=== PATIENT | female | born 1955 | race Caucasian/White ===

== ENCOUNTER 2016-08-29 12:45 | Emergency (ER) | payer OTHER ==
[~2016-08-29] VITALS: Ht 162.6 cm; Wt 72.6 kg
[2016-08-29] MEDS ORDERED: LEVO88TA3 (13:14)
[2016-08-29] MEDS ORDERED: GABA-283 (13:14)
[2016-08-29] MEDS ORDERED: PROZ40CA PO (13:14)
[2016-08-29] MEDS ORDERED: ASPIRIN 81 MG CHEW TABLET PO ONE (15:00)
--- NOTE | 2016-08-29 15:31 | REP ---
PORTABLE CHEST: AP portable view of the chest is performed. There is mild biapical pleural thickening. There is no acute infiltrate. The heart is normal in size. The mediastinal silhouette is unremarkable. IMPRESSION: No acute infiltrate. Signed by Jareth Wilson MD 08/29/2016 04:19 P
[2016-08-29 15:46] LABS: BASO % 0.3 % (0.0-1.0); EOS # 0.1 K/mm3 (0.0-0.50); LARGE UNSTAINED CELL # 0.1 K/mm3 (0.0-0.4); LARGE UNSTAINED CELL % 1.5 % (0.0-4.0); LYMPH # 1.5 K/mm3 (1.5-4.5); LYMPH % 22.8 % (24.0-44.0); MEAN CORPUSCULAR HGB CONC 33.2 g/dl (32.0-36.5); MEAN CORPUSCULAR VOLUME 90.4 fl (80.0-96.0); MONO # 0.3 K/mm3 (0.0-0.8); MONO % 4.7 % (0.0-5.0); NEUTROPHILS # 4.5 K/mm3 (1.8-7.7); NEUTROPHILS % 69.7 % (36.0-66.0); PLATELET COUNT, AUTOMATED 254 k/mm3 (150-450); RED CELL DISTRIBUTION WIDTH 12.2 % (11.5-14.5); WHITE BLOOD COUNT 6.5 K/mm3 (4.0-10.0)
[2016-08-29 16:15] LABS: ALBUMIN/GLOBULIN RATIO 1.21 (1.00-1.93); ALKALINE PHOSPHATASE 78 U/L (45-117); ALT/SGPT 17 U/L (12-78); ANION GAP 7 MEQ/L (8-16); AST/SGOT 13 U/L (15-37); BILIRUBIN,DIRECT 0.1 MG/DL (0.0-0.2); BILIRUBIN,TOTAL 0.5 MG/DL (0.2-1.0); BLOOD UREA NITROGEN 7 MG/DL (7-18); CALCIUM LEVEL 9.2 MG/DL (8.5-10.1); CARBON DIOXIDE LEVEL 31 MEQ/L (21-32); CHLORIDE LEVEL 104 MEQ/L (98-107); CREATININE FOR GFR 0.71 MG/DL (0.55-1.02); GLOMERULAR FILTRATION RATE > 60.0 (>51); GLUCOSE, FASTING 90 MG/DL (70-105); POTASSIUM SERUM 4.1 MEQ/L (3.5-5.1); SODIUM LEVEL 142 MEQ/L (136-145); TOTAL PROTEIN 7.3 GM/DL (6.4-8.2)
[2016-08-29] MEDS ORDERED: ISOVUE-370 76% 100ML VIAL (Q9967) As Ordered ONE (16:18)
--- NOTE | 2016-08-29 18:11 | REP ---
CT pulmonary angiogram: With IV contrast. History: Chest pain and shortness of breath. Comparison studies: Today's portable chest x-ray. Contrast dose: Comparison low-dose screening lung cancer CT study is from 05/05/2016. 75 cc's of Isovue-[address] technique: Helical scanning is acquired and overlapping 1.5 mm and contiguous 3 mm axial images are reformatted. In addition, a 3-D work station is deployed to generate thick slab maximum intensity projection images in sagittal and coronal imaging projections. CT pulmonary angiographic findings: There is good opacification of the pulmonary arterial tree and there is no CT evidence of pulmonary embolism. Maximal intensity projection images show no vessel cutoff or filling defect to suggest a pulmonary thrombus. The thoracic aorta enhances homogeneously. No aortic aneurysm or dissection is appreciated. There is a granulomatous calcified nodule on the overlying the dome of the right hemidiaphragm at the right lower lobe medially. This appears to be in the pleural space and indeed appears to have moved its position relative to the 05/05/[address] study when it was more medially situated behind the inferior vena cava. This is felt to be compatible with a pleural space concretion which has migrated somewhat, aka thoracolithiasis. Lung mosley are otherwise clear. No pleural or pericardial effusion is seen. No hilar or mediastinal mass or adenopathy is observed. No adrenal lesion is seen. There is a small accessory splenule. The visualized upper abdominal structures are otherwise unremarkable. Impression: No CT evidence of pulmonary embolus. Granulomatous calcification in the right pleural space just above the dome of the diaphragm. Signed by Eladio Campos MD 08/29/2016 07:46 P
[2016-08-29 18:55] VITALS: BP 129/75
--- NOTE | 2016-08-29 20:54 | ECGEPIP ---
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
--- NOTE | 2016-08-30 06:07 | ECGEPIP ---
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
== END 2016-08-29 18:58 | disposition home or self-care (01) ==
LOC: M ED 15:15
DX: R07.9 Chest pain, unspecified (principal); R93.1 Abnormal findings on diagnostic imaging of heart and coronary circulation; E03.9 Hypothyroidism, unspecified; F41.9 Anxiety disorder, unspecified; Z87.891 Personal history of nicotine dependence; Z79.899 Other long term (current) drug therapy; Z88.5 Allergy status to narcotic agent
CPT/HCPCS: 36415; 71010; 71275; 80048; 80076; 82550; 82553; 83690; 83880; 85025; 93005; 93041; 94760; 99285; Q9967

== ENCOUNTER → 2016-10-10 | Outpatient (REF) | payer OTHER ==
[~2016-10-10] MED LIST: GABA-283; LEVO88TA3; PROZ40CA PO
[2016-10-10 15:38] LABS: BASO % 0.5 % (0.0-1.0); EOS # 0.1 K/mm3 (0.0-0.50); EOS % 2.9 % (0.0-3.0); LARGE UNSTAINED CELL # 0.1 K/mm3 (0.0-0.4); LARGE UNSTAINED CELL % 1.9 % (0.0-4.0); LYMPH # 1.8 K/mm3 (1.5-4.5); MEAN CORPUSCULAR HEMOGLOBIN 28.5 pg (27.0-33.0); MEAN CORPUSCULAR HGB CONC 31.2 g/dl (32.0-36.5); MEAN CORPUSCULAR VOLUME 91.5 fl (80.0-96.0); MONO # 0.3 K/mm3 (0.0-0.8); MONO % 6.8 % (0.0-5.0); NEUTROPHILS # 2.4 K/mm3 (1.8-7.7); PLATELET COUNT, AUTOMATED 212 k/mm3 (150-450); RED CELL DISTRIBUTION WIDTH 12.2 % (11.5-14.5); WHITE BLOOD COUNT 4.8 K/mm3 (4.0-10.0)
[2016-10-10 16:09] LABS: ALBUMIN 3.7 GM/DL (3.2-5.2); ALBUMIN/GLOBULIN RATIO 1.16 (1.00-1.93); ALKALINE PHOSPHATASE 76 U/L (45-117); ALT/SGPT 16 U/L (12-78); ANION GAP 6 MEQ/L (8-16); AST/SGOT 9 U/L (15-37); BILIRUBIN,TOTAL 0.3 MG/DL (0.2-1.0); BLOOD UREA NITROGEN 5 MG/DL (7-18); CALCIUM LEVEL 8.8 MG/DL (8.5-10.1); CARBON DIOXIDE LEVEL 32 MEQ/L (21-32); CHLORIDE LEVEL 103 MEQ/L (98-107); CHOLESTEROL LEVEL 262 MG/DL (<200); CREATININE FOR GFR 0.69 MG/DL (0.55-1.02); FREE T4 1.39 NG/DL (0.76-1.46); GLOMERULAR FILTRATION RATE > 60.0 (>51); GLUCOSE, FASTING 100 MG/DL (70-105); POTASSIUM SERUM 4.5 MEQ/L (3.5-5.1); SODIUM LEVEL 141 MEQ/L (136-145); TOTAL PROTEIN 6.9 GM/DL (6.4-8.2); TRIGLYCERIDES LEVEL 266 MG/DL (<150)
== END ==
LOC: M SFHCPLAZ 14:45
PROVIDERS: ATTEND Nurse Practitioner Family
DX: F41.8 Other specified anxiety disorders (principal); E78.5 Hyperlipidemia, unspecified; E03.9 Hypothyroidism, unspecified

== ENCOUNTER → 2016-12-05 | Outpatient (REF) | payer OTHER ==
[2016-12-05 20:27] LABS: FREE T4 1.14 NG/DL (0.76-1.46)
== END ==
LOC: M SFHCCAPE 09:42
PROVIDERS: ATTEND Nurse Practitioner Family
DX: E03.9 Hypothyroidism, unspecified (principal)

== ENCOUNTER → 2016-12-19 | Outpatient (CLI) | payer MEDICAID, OTHER ==
--- NOTE | 2016-12-19 13:38 | REP ---
Clinical: Trauma. Technique: Frontal view of the chest with multiple views of the left hemithorax. Findings: Frontal view of the chest demonstrates no acute cardiopulmonary process. Multiple views of the left hemithorax demonstrates no obvious acute rib fracture or pathology. Impression: Normal left rib series Signed by Derick Morejon MD 12/19/2016 01:29 P
== END ==
LOC: M WUC 12:43
PROVIDERS: ATTEND Nurse Practitioner Family
DX: R07.81 Pleurodynia (principal)

== ENCOUNTER → 2017-05-10 | Outpatient (REF) | payer OTHER ==
[2017-05-10 18:03] LABS: ALBUMIN 3.7 GM/DL (3.2-5.2); ALKALINE PHOSPHATASE 82 U/L (45-117); ALT/SGPT 14 U/L (12-78); ANION GAP 3 MEQ/L (8-16); AST/SGOT 10 U/L (7-37); BILIRUBIN,TOTAL 0.4 MG/DL (0.2-1.0); BLOOD UREA NITROGEN 4 MG/DL (7-18); CALCIUM LEVEL 8.8 MG/DL (8.5-10.1); CARBON DIOXIDE LEVEL 33 MEQ/L (21-32); CHLORIDE LEVEL 103 MEQ/L (98-107); CHOLESTEROL LEVEL 281 MG/DL (<200); FREE T4 1.17 NG/DL (0.76-1.46); GLOMERULAR FILTRATION RATE > 60.0 (>51); GLUCOSE, FASTING 84 MG/DL (70-105); POTASSIUM SERUM 4.1 MEQ/L (3.5-5.1); SODIUM LEVEL 139 MEQ/L (136-145); TOTAL PROTEIN 7.4 GM/DL (6.4-8.2); TRIGLYCERIDES LEVEL 183 MG/DL (<150)
== END ==
LOC: M SFHCCAPE 09:16
PROVIDERS: ATTEND Physician Assistant
DX: E78.5 Hyperlipidemia, unspecified (principal); E03.9 Hypothyroidism, unspecified

== ENCOUNTER → 2017-09-12 | Outpatient (REF) | payer MEDICARE, MEDICAID | LOC: M SFHCCLAY 14:34 | DX: R19.7 Diarrhea, unspecified (principal) ==

== ENCOUNTER → 2017-09-13 | Outpatient (REF) | payer MEDICARE, MEDICAID ==
[2017-09-13 17:12] LABS: ALBUMIN 3.9 GM/DL (3.2-5.2); ALBUMIN/GLOBULIN RATIO 1.03 (1.00-1.93); ALKALINE PHOSPHATASE 83 U/L (45-117); ALT/SGPT 11 U/L (12-78); ANION GAP 5 MEQ/L (8-16); AST/SGOT 15 U/L (7-37); BILIRUBIN,TOTAL 0.4 MG/DL (0.2-1.0); BLOOD UREA NITROGEN 7 MG/DL (7-18); CALCIUM LEVEL 9.1 MG/DL (8.5-10.1); CARBON DIOXIDE LEVEL 31 MEQ/L (21-32); CHLORIDE LEVEL 103 MEQ/L (98-107); CREATININE FOR GFR 0.84 MG/DL (0.55-1.30); GLOMERULAR FILTRATION RATE > 60.0 (>51); GLUCOSE, FASTING 83 MG/DL (70-100); POTASSIUM SERUM 4.4 MEQ/L (3.5-5.1); SODIUM LEVEL 139 MEQ/L (136-145); TOTAL PROTEIN 7.7 GM/DL (6.4-8.2)
[2017-09-13 18:16] LABS: BASO % 0.7 % (0.0-1.0); EOS # 0.1 10^3/uL (0.0-0.50); EOS % 1.7 % (0.0-3.0); HEMATOCRIT 41.5 % (36.0-47.0); HEMOGLOBIN 13.4 g/dl (12.0-16.0); IMMATURE GRANULOCYTE % 0.2 % (0-3.0); LYMPH % 34.2 % (24.0-44.0); MEAN CORPUSCULAR HGB CONC 32.3 g/dl (32.0-36.5); MONO # 0.6 10^3/uL (0.0-0.8); MONO % 9.3 % (0.0-5.0); NEUTROPHILS # 3.2 10^3/uL (1.8-7.7); NEUTROPHILS % 53.9 % (36.0-66.0); PLATELET COUNT, AUTOMATED 368 10^3/uL (150-450); RED BLOOD COUNT 4.46 10^6/uL (4.00-5.40); RED CELL DISTRIBUTION WIDTH 12.9 % (11.5-14.5); WHITE BLOOD COUNT 5.9 10^3/uL (4.0-10.0)
[2017-09-16 00:06] LABS: H PYLORI STOOL ANTIGEN Negative (Negative)
== END ==
LOC: M SFHCCLAY 10:29
DX: R19.7 Diarrhea, unspecified (principal)
CPT/HCPCS: 80053

== ENCOUNTER → 2017-09-26 | Outpatient (REF) | payer MEDICARE, MEDICAID | LOC: M SFHCCLAY 16:23 | DX: A04.72 Enterocolitis due to Clostridium difficile, not specified as recurrent (principal) | CPT/HCPCS: 87493 ==

== ENCOUNTER → 2018-02-27 | Outpatient (CLI) | payer MEDICARE, MEDICAID | LOC: M CLY 14:45 | DX: M94.0 Chondrocostal junction syndrome [Tietze] (principal); R30.0 Dysuria | CPT/HCPCS: 71100; 87086 ==

== ENCOUNTER → 2018-02-27 | Outpatient (REF) | payer MEDICARE, MEDICAID | LOC: M SFHCCLAY 13:50 | DX: R30.0 Dysuria (principal) | CPT/HCPCS: 87086 ==

== ENCOUNTER → 2018-07-25 | Outpatient (REF) | payer MEDICARE, MEDICAID ==
[~2018-07-25] MED LIST changes: -GABA-283; +GABA-845
[2018-07-25 17:33] LABS: BASO # 0.1 10^3/uL (0.0-0.2); BASO % 1.1 % (0.0-1.0); EOS # 0.2 10^3/uL (0.0-0.50); EOS % 3.5 % (0.0-3.0); HEMATOCRIT 39.2 % (36.0-47.0); HEMOGLOBIN 12.5 g/dl (12.0-15.5); LYMPH # 2.3 10^3/uL (1.5-4.5); LYMPH % 40.5 % (24.0-44.0); MEAN CORPUSCULAR HEMOGLOBIN 29.8 pg (27.0-33.0); MEAN CORPUSCULAR HGB CONC 31.9 g/dl (32.0-36.5); MEAN CORPUSCULAR VOLUME 93.6 fl (80.0-96.0); MONO # 0.5 10^3/uL (0.0-0.8); MONO % 8.1 % (0.0-5.0); NEUTROPHILS # 2.7 10^3/uL (1.8-7.7); NEUTROPHILS % 46.4 % (36.0-66.0); PLATELET COUNT, AUTOMATED 310 10^3/uL (150-450); RED BLOOD COUNT 4.19 10^6/uL (4.00-5.40); WHITE BLOOD COUNT 5.7 10^3/uL (4.0-10.0)
[2018-07-25 17:38] LABS: ALBUMIN 3.5 GM/DL (3.2-5.2); ALT/SGPT 27 U/L (12-78); BILIRUBIN,TOTAL 0.3 MG/DL (0.2-1.0); BLOOD UREA NITROGEN 8 MG/DL (7-18); CALCIUM LEVEL 8.4 MG/DL (8.8-10.2); CARBON DIOXIDE LEVEL 32 MEQ/L (21-32); CHLORIDE LEVEL 102 MEQ/L (98-107); CHOLESTEROL LEVEL 316 MG/DL (<200); CHOLESTEROL RISK RATIO 9.575 (<5); CREATININE FOR GFR 0.84 MG/DL (0.55-1.30); GLOMERULAR FILTRATION RATE > 60.0 (>45); GLUCOSE, FASTING 83 MG/DL (70-100); HDL CHOLESTEROL 33 MG/DL (>40); NON-HDL-C 283 MG/DL; POTASSIUM SERUM 4.3 MEQ/L (3.5-5.1); SODIUM LEVEL 139 MEQ/L (136-145); TOTAL PROTEIN 7.1 GM/DL (6.4-8.2); TRIGLYCERIDES LEVEL 449 MG/DL (<150)
[2018-07-25 17:44] LABS: TOTAL 25(OH) VITAMIN D 14.2 NG/ML (30.0-100.0)
== END ==
LOC: M SFHCCAPE 09:47
PROVIDERS: ATTEND Physician Assistant
DX: E03.9 Hypothyroidism, unspecified (principal); E78.5 Hyperlipidemia, unspecified; Z78.0 Asymptomatic menopausal state

== ENCOUNTER → 2018-07-30 | Outpatient (REF) | payer MEDICARE, MEDICAID ==
[2018-08-02 00:06] LABS: HPV HYBRID CAPTURE II Negative (Negative)
== END ==
LOC: M SFHCCAPE 11:55
PROVIDERS: ATTEND Physician Assistant
DX: Z01.419 Encounter for gynecological examination (general) (routine) without abnormal findings (principal); R87.615 Unsatisfactory cytologic smear of cervix
CPT/HCPCS: 87624; G0123

== ENCOUNTER → 2018-09-12 | Outpatient (CLI) | payer MEDICAID, MEDICARE ==
--- NOTE | 2018-09-12 16:49 | REP ---
Low-dose lung cancer screening CT study of the chest: History: Personal history of nicotine dependence. Comparison chest CT studies are from August 29, 2016 and May 05, 2016. 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 This is unchanged. There is a small right tracheal diverticulum again noted at the thoracic inlet unchanged from prior studies. No other tracheobronchial abnormality is seen. There is no evidence of pleural or pericardial effusion. No significant lung nodule is appreciated. Previously noted granulomatous calcification at the right base is no longer apparent. Impression: Lung RADS category II benign findings. Continue annual screening. Electronically Signed by Eladio Campos MD 09/12/2018 05:28 P
== END ==
LOC: M RAD 10:53
PROVIDERS: ATTEND Physician Assistant
DX: Z12.2 Encounter for screening for malignant neoplasm of respiratory organs (principal); Z87.891 Personal history of nicotine dependence

== ENCOUNTER → 2018-10-30 | Outpatient (REF) | payer MEDICARE, MEDICAID ==
[2018-10-30 17:16] LABS: ALT/SGPT 13 U/L (12-78); BILIRUBIN,TOTAL 0.5 MG/DL (0.2-1.0); BLOOD UREA NITROGEN 8 MG/DL (7-18); CALCIUM LEVEL 9.2 MG/DL (8.8-10.2); CARBON DIOXIDE LEVEL 30 MEQ/L (21-32); CHLORIDE LEVEL 105 MEQ/L (98-107); CHOLESTEROL LEVEL 336 MG/DL (<200); CHOLESTEROL RISK RATIO 8.615 (<5); CREATININE FOR GFR 0.85 MG/DL (0.55-1.30); GLOMERULAR FILTRATION RATE > 60.0 (>45); GLUCOSE, FASTING 87 MG/DL (70-100); HDL CHOLESTEROL 39 MG/DL (>40); LDL CHOLESTEROL 258 MG/DL (<100); NON-HDL-C 297 MG/DL; POTASSIUM SERUM 4.2 MEQ/L (3.5-5.1); SODIUM LEVEL 140 MEQ/L (136-145); TOTAL 25(OH) VITAMIN D 58.4 NG/ML (30.0-100.0); TOTAL PROTEIN 7.2 GM/DL (6.4-8.2); TRIGLYCERIDES LEVEL 197 MG/DL (<150)
== END ==
LOC: M SFHCCAPE 08:40
PROVIDERS: ATTEND Physician Assistant
DX: E78.5 Hyperlipidemia, unspecified (principal); E55.9 Vitamin D deficiency, unspecified

== ENCOUNTER → 2019-08-26 | Outpatient (REF) | payer MEDICARE, MEDICAID ==
[2019-08-26 18:29] LABS: BASO % 0.8 % (0.0-1.0); EOS # 0.1 10^3/uL (0.0-0.5); EOS % 1.9 % (0.0-3.0); HEMATOCRIT 37.9 % (36.0-47.0); HEMOGLOBIN 12.1 g/dl (12.0-15.5); LYMPH # 1.8 10^3/uL (1.5-5.0); LYMPH % 34.6 % (24.0-44.0); MEAN CORPUSCULAR HEMOGLOBIN 29.7 pg (27.0-33.0); MEAN CORPUSCULAR HGB CONC 31.9 g/dl (32.0-36.5); MEAN CORPUSCULAR VOLUME 92.9 fl (80.0-96.0); MONO # 0.4 10^3/uL (0.0-0.8); MONO % 7.4 % (0.0-5.0); NEUTROPHILS # 2.9 10^3/uL (1.5-8.5); NEUTROPHILS % 55.3 % (36.0-66.0); PLATELET COUNT, AUTOMATED 370 10^3/uL (150-450); RED BLOOD COUNT 4.08 10^6/uL (4.00-5.40); WHITE BLOOD COUNT 5.2 10^3/uL (4.0-10.0)
[2019-08-26 18:33] LABS: ALBUMIN 3.7 GM/DL (3.2-5.2); ALT/SGPT 16 U/L (12-78); BILIRUBIN,TOTAL 0.6 MG/DL (0.2-1.0); BLOOD UREA NITROGEN 8 MG/DL (7-18); CALCIUM LEVEL 9.2 MG/DL (8.8-10.2); CARBON DIOXIDE LEVEL 27 MEQ/L (21-32); CHLORIDE LEVEL 107 MEQ/L (98-107); CHOLESTEROL LEVEL 165 MG/DL (<200); CREATININE FOR GFR 0.86 MG/DL (0.55-1.30); GLOMERULAR FILTRATION RATE > 60.0 (>45); GLUCOSE, FASTING 89 MG/DL (70-100); HDL CHOLESTEROL 39 MG/DL (>40); LDL CHOLESTEROL 96 MG/DL (<100); NON-HDL-C 126 MG/DL; POTASSIUM SERUM 4.3 MEQ/L (3.5-5.1); SODIUM LEVEL 140 MEQ/L (136-145); TOTAL 25(OH) VITAMIN D 113.8 NG/ML (30.0-100.0); TOTAL PROTEIN 6.9 GM/DL (6.4-8.2); TRIGLYCERIDES LEVEL 152 MG/DL (<150)
== END ==
LOC: M SFHCCAPE 10:38
PROVIDERS: ATTEND Physician Assistant
DX: E78.5 Hyperlipidemia, unspecified (principal); E03.9 Hypothyroidism, unspecified; E55.9 Vitamin D deficiency, unspecified

== ENCOUNTER → 2020-06-04 | Outpatient (REF) | payer MEDICARE, MEDICAID | LOC: M SFHCCLAY 11:14 | PROVIDERS: ATTEND Physician Assistant | DX: L53.9 Erythematous condition, unspecified (principal) ==

== ENCOUNTER → 2020-06-04 | Outpatient (REF) | payer MEDICARE, MEDICAID | LOC: M SFHCCLAY 16:02 | PROVIDERS: ATTEND Physician Assistant | DX: L53.9 Erythematous condition, unspecified (principal) ==

== ENCOUNTER → 2020-06-11 | Outpatient (REF) | payer MEDICARE, MEDICAID ==
[2020-06-11 17:58] LABS: ALBUMIN 3.8 GM/DL (3.2-5.2); ALT/SGPT 15 U/L (12-78); BILIRUBIN,TOTAL 0.3 MG/DL (0.2-1.0); BLOOD UREA NITROGEN 5 MG/DL (7-18); CALCIUM LEVEL 9.5 MG/DL (8.8-10.2); CARBON DIOXIDE LEVEL 34 MEQ/L (21-32); CHLORIDE LEVEL 104 MEQ/L (98-107); CHOLESTEROL LEVEL 179 MG/DL (<200); CHOLESTEROL RISK RATIO 4.837 (<5); CREATININE FOR GFR 0.93 MG/DL (0.55-1.30); GLOMERULAR FILTRATION RATE > 60.0 (>45); GLUCOSE, FASTING 91 MG/DL (70-100); HDL CHOLESTEROL 37 MG/DL (>40); LDL CHOLESTEROL 96 MG/DL (<100); NON-HDL-C 142 MG/DL; POTASSIUM SERUM 4.7 MEQ/L (3.5-5.1); SODIUM LEVEL 139 MEQ/L (136-145); TOTAL PROTEIN 7.2 GM/DL (6.4-8.2); TRIGLYCERIDES LEVEL 231 MG/DL (<150)
[2020-06-11 18:01] LABS: TOTAL 25(OH) VITAMIN D 35.1 NG/ML (30.0-100.0)
[2020-06-11 18:12] LABS: BASO % 0.8 % (0.0-1.0); EOS # 0.1 10^3/uL (0.0-0.5); EOS % 1.9 % (0.0-3.0); HEMATOCRIT 41.7 % (36.0-47.0); HEMOGLOBIN 13.3 g/dl (12.0-15.5); LYMPH # 1.6 10^3/uL (1.5-5.0); LYMPH % 33.2 % (24.0-44.0); MEAN CORPUSCULAR HEMOGLOBIN 30.1 pg (27.0-33.0); MEAN CORPUSCULAR HGB CONC 31.9 g/dl (32.0-36.5); MEAN CORPUSCULAR VOLUME 94.3 fl (80.0-96.0); MONO # 0.4 10^3/uL (0.0-0.8); MONO % 7.6 % (0.0-5.0); NEUTROPHILS # 2.7 10^3/uL (1.5-8.5); NEUTROPHILS % 56.3 % (36.0-66.0); PLATELET COUNT, AUTOMATED 262 10^3/uL (150-450); RED BLOOD COUNT 4.42 10^6/uL (4.00-5.40); WHITE BLOOD COUNT 4.8 10^3/uL (4.0-10.0)
== END ==
LOC: M SFHCCLAY 10:51
PROVIDERS: ATTEND Physician Assistant
DX: Z12.4 Encounter for screening for malignant neoplasm of cervix (principal); E03.9 Hypothyroidism, unspecified; E78.5 Hyperlipidemia, unspecified; E55.9 Vitamin D deficiency, unspecified; R87.615 Unsatisfactory cytologic smear of cervix
CPT/HCPCS: 80053; 80061; 82306; 84439; 84443; 85025; 87624; G0123

== ENCOUNTER → 2020-09-28 | Outpatient (REF) | payer MEDICARE, MEDICAID ==
[2020-09-28 17:08] LABS: ALBUMIN 3.5 GM/DL (3.2-5.2); ALT/SGPT 18 U/L (12-78); BILIRUBIN,TOTAL 0.2 MG/DL (0.2-1.0); BLOOD UREA NITROGEN 5 MG/DL (7-18); CALCIUM LEVEL 8.8 MG/DL (8.8-10.2); CARBON DIOXIDE LEVEL 31 MEQ/L (21-32); CHLORIDE LEVEL 103 MEQ/L (98-107); CHOLESTEROL LEVEL 174 MG/DL (<200); CHOLESTEROL RISK RATIO 4.833 (<5); CREATININE FOR GFR 0.81 MG/DL (0.55-1.30); GLOMERULAR FILTRATION RATE > 60.0 (>45); GLUCOSE, FASTING 97 MG/DL (70-100); HDL CHOLESTEROL 36 MG/DL (>40); LDL CHOLESTEROL 96 MG/DL (<100); NON-HDL-C 138 MG/DL; POTASSIUM SERUM 4.4 MEQ/L (3.5-5.1); SODIUM LEVEL 139 MEQ/L (136-145); TOTAL 25(OH) VITAMIN D 30.2 NG/ML (30.0-100.0); TOTAL PROTEIN 6.8 GM/DL (6.4-8.2); TRIGLYCERIDES LEVEL 208 MG/DL (<150)
== END ==
LOC: M SFHCCAPE 08:59
PROVIDERS: ATTEND Physician Assistant
DX: E78.5 Hyperlipidemia, unspecified (principal); E03.9 Hypothyroidism, unspecified; E55.9 Vitamin D deficiency, unspecified

== ENCOUNTER → 2020-11-11 | Outpatient (CLI) | payer MEDICAID, MEDICARE ==
[~2020-11-11] MED LIST changes: +GABA-283; -GABA-845
--- NOTE | 2020-11-11 16:01 | REP ---
INDICATION: ENCNTR SCREEN FOR MALIGNANT NEOPLASM OF RESPIRATORY ORGANS. COMPARISON: 09/12/2018. TECHNIQUE: Low dose screening CT chest performed without the use of intravenous contrast. FINDINGS: Lungs: There is stable biapical pleuroparenchymal scarring. There are new mild scattered patchy ground-glass opacities throughout the right upper lobe. Similar opacities are also seen to a much lesser extent in the right middle and lower lobes and left upper lobe. No focal nodular opacity is seen bilaterally. Heart: Not enlarged. Thoracic aorta: No aneurysm. Visualized osseous structures: Unremarkable. IMPRESSION: New mild scattered patchy ground-glass opacities throughout the right upper lobe and to a lesser extent right middle, right lower and left upper lobes. I suspect these represent scattered areas of inflammatory infiltrate. Recommend follow-up chest CT in 3 months. <Electronically signed by Jareth Wilson > 11/11/20 1943
== END ==
LOC: M RAD 13:28
PROVIDERS: ATTEND Physician Assistant
DX: R91.8 Other nonspecific abnormal finding of lung field (principal); Z87.891 Personal history of nicotine dependence; Z12.2 Encounter for screening for malignant neoplasm of respiratory organs

== ENCOUNTER → 2021-02-15 | Outpatient (CLI) | payer MEDICARE ==
--- NOTE | 2021-02-15 13:27 | REP ---
INDICATION: ABNORMAL FINDING OF LUNG FIELD COMPARISON: 11/11/2020 TECHNIQUE: Axial noncontrast images from the thoracic inlet to the upper abdomen with coronal and sagittal reformations. This CT examination was performed using the following dose reduction techniques: Automated exposure control, adjustment of mA and/or kv according to the patient's size, and use of iterative reconstruction technique. FINDINGS: Lung mosley demonstrate stable biapical scarring and the previously noted scattered ground-glass opacities have resolved. No acute consolidation. No effusion or pneumothorax. No suspicious nodule or mass. Tracheobronchial tree is patent. Limited noncontrast evaluation nonspecific lymph nodes and atherosclerotic changes as well as small hiatal hernia. Of the mediastinum demonstrates stable no cardiomegaly or pericardial effusion. Musculoskeletal structures are intact. IMPRESSION: 1. Lung mosley are clear and previously noted ground-glass infiltrates have resolved. No acute mediastinal or pleuroparenchymal process. <Electronically signed by Derick Morejon > 02/15/21 [id number]
== END ==
LOC: M PLAIMG 12:36
PROVIDERS: ATTEND Nurse Practitioner Adult Health
DX: J98.4 Other disorders of lung (principal); K44.9 Diaphragmatic hernia without obstruction or gangrene

== ENCOUNTER → 2021-04-14 | Outpatient (CLI) | payer MEDICARE ==
[~2021-04-14] MED LIST changes: +ATOR1TAB19 PO
== END ==
LOC: M LABSMTC 10:07
PROVIDERS: ATTEND Anesthesiology
DX: Z01.812 Encounter for preprocedural laboratory examination (principal); Z20.822 Contact with and (suspected) exposure to COVID-19

== ENCOUNTER 2021-04-19 10:02 | Day surgery (SDC) | payer MEDICARE ==
[~2021-04-19] VITALS: Ht 165.1 cm; Wt 59.9 kg
[~2021-04-19 10:02] MED LIST changes: +NS 1,000 ML IV ONE
--- OUTSIDE RECORDS SUMMARY | 2021-04-19 10:06 | CCD | Continuity of Care Document ---
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 Name Role Phone Blanca Torres P.Lavell-Jania AUTM [phone] AUTM Unavailable Problems Description No Information Available Social History Type Date Description Comments Sex Unknown ETOH Use Denies alcohol use Tobacco Use Start: Unknown Patient is a current smoker, smo kes every day 06/29- pd Smoking Status Reviewed: 02/23/21 Patient is a current smoker, smokes every day 4-2ppd Allergies, Adverse Reactions, Alerts Active Allergies Criticality Reaction | Severity Comments Date Procaine Unable to assess criticality Hives 11/11/2020 Lidocaine Unable to assess criticality Hives, vomiting 11/11/2020 Morphine Unable to assess criticality Hives 11/11/2020 Medications Active Medications SIG Qnty Indications Ordering Provide r Date Levothyroxine Sodium 88mcg Capsule s 1cap po qd Unknown Atorvastatin Calcium 10mg Tablets 1tab po qd Unknown Zyrtec Allergy 10mg Tablets 1tab po qd Unknown Gabapentin 300mg Capsules 1 tab by mouth every day Unknown Fluoxetine HCL 20mg Tablets Take 2 Tablets By Mouth Once Daily Blanca Torres P.Lavell History Medications Sutab [id number] Tablets follow the instruction provided. drink plenty of clear liquids. (if not covered by insurance, give clenpiq/ call gi clinic) 24tabs Z12.11 Woody Dacosta M.D. 11/11/2020 - 11/15/2020 Miralax 17GM/Scoop Powder 17 gram per dose, mixed with 8 oz water/fluid and to be taken 1 -2 times a day for 5 days ( prior to colonoscopy procedure) 238gm K58.2 Woody Martin ala, M.D. 11/11/2020 - 11/15/2020 Immunizations Description No Information Available Vital Signs Date Vital Result Comment 02/23/2021 12:17pm BP Systolic 128 mmHg BP Diastolic 82 mmHg Heart Rate 73 /min O2 % BldC Oximetry 97 % Height 65 inches 5'5" Weight 135.00 lb BMI (Body Mass Index) 22.5 kg/m2 [place] Body Weight 125 lb Weight 61.236 kg BSA (Body Surface Area) 1.67 m2 12/16/2020 10:09am BP Systolic 120 mmHg BP Diastolic 82 mmHg Heart Rate 72 /min O2 % BldC Oximetry 97 % Height 65 inches 5'5" Weight 131.00 lb BMI (Body Mass Index) 21.8 kg/m2 [place] Body Weight 125 lb Weight 59.422 kg BSA (Body Surface Area) 1.65 m2 Results Test Acquired Date Facility Test Result H/L Range Note FVL/[place] 12/16/2020 [facility] SEE IMAGE FVC-Pred 3.34 L FVC-Pre 2.92 L FVC-%Pred-Pre 87 L FVC-LLN 2.63 L Fev1-Pred 2.57 L Fev1-Pre 2.14 L Fev1-%Pred-Pre 83 L Fev1-LLN 1.96 L Fev6-Pred 3.22 L Fev6-Pre 2.80 L Fev6-%Pred-Pre 86 L Fev6-LLN 2.52 L Teu6cqu-Lrwy 77 % Tog2jeh-Ckl 73 % Cyi6ekb-%Pred-Pre 94 % Jim2bwd-MBQ 68 % Qqp0jyl-Anqo 96 % Net7bsk-Lfj 96 % Vcn9gls-%Pred-Pre 99 % FEFMax-Pred 6.28 L/E/sec FEFMax-Pre 5.40 L/E/sec FEFMax-%Pred-Pre 86 L/E/sec FEFMax-LLN 4.51 L/E/sec Zfq5837-Jqzn 2.28 L/E/sec Tyt9574-Vwa 1.48 L/E/sec Cxd0437-%Pred-Pre 64 L/E/sec Lxn8729-ODW 1.00 L/E/sec ExpTime-Pre 8.54 sec Ceu4noe8-Bwwu 80 % Nvn4wnk8-Fvv 77 % Qyd6utq2-%Pred-Pre 95 % Ghy9ufw1-HUT 71 % Procedures Date Code Description Status 12/16/2020 59698 Office/Outpatient New Moderate M DM 45-59 Minutes Completed 12/16/2020 74548 Spirometry Completed 11/11/2020 15405 Office/Outpatient Established Lo w MDM 20-29 Min Completed Medical Devices Description No Information Available Encounters Type Date Location Provider Dx Diagnosis Office Visit 12/16/2020 10:00a [facility] Pulmonary/Thoracic DONOVAN Moss R91.8 Other nonspecific abnormal finding of lynette ng field F17.218 Nicotine dependence, cigaret yaima, w oth disorders Office Visit 11/11/2020 10:00a [facility] Gastroenterology [facility] maty Dacosta M.D. K58.2 Mixed irritable bowel syndro id Z12.11 Encounter for screening for malignant neoplasm of colon Assessments Date Code Description Provider 02/23/2021 R91.8 Other nonspecific abnormal findi ng of lung field Ivory Zaragoza, DONOVAN 02/23/2021 Z87.891 Personal history of nicotine dep endence DONOVAN Blackwell 12/16/2020 R91.8 Other nonspecific abnormal findi ng of lung field Ivory Zaragoza, DONOVAN 12/16/2020 F17.218 Nicotine dependence, cigarettes, with other nicotine-induced disorders DONOVAN Blackwell 11/11/2020 K58.2 Mixed irritable bowel syndrome C suzanne Dacosta M.D. 11/11/2020 Z12.11 Encounter for screening for toby gnant neoplasm of colon Woody Dacosta M.D. Plan of Treatment Future Appointment(s):* 08/30/2021 11:30 am - DONOVAN Blackwell at [facility] Pulmonary/Thoracic * 04/19/2021 2:00 am - Woody Dacosta M.D. at [facility] Gastroenterology Practice 02/23/2021 - DONOVAN Blackwell* R91.8 Other nonspecific abnormal finding of lung field * Z87.891 Personal history of nicotine dependence * * New Xrays:* CT Chest W/O Contrast, Ordered: 02/23/21 * Follow up:* Return in [address] with me/doctor Functional Status Description No Information Available Mental Status Description No Information Available Referrals Refer to Reason for Referral Status Appt Date Radiology/Procedure 94245 Scheduled 02/15/2021 Ivory Zaragoza A.N.P. ABNORMAL LDCT Closed 12/16/2020 [facility] Pulmonary [address] [place], [place] [address] [phone] Kevin Beebe M.D. DIARRHEA CONSTIPATION, RLQ PAIN, COLO SCREEN ING Created [facility], Gastroenterology [address], [address] [place] [address] [phone]
--- OUTSIDE RECORDS SUMMARY | 2021-04-19 10:06 | CCD | Continuity of Care Document ---
Author Author Diane ZARAGOZA [facility] Organization Unknown Address [address] [place] [address] Phone [phone] Care Team Providers Care Medical Writer Name Role Phone Blanca Torres P.Lavell-Jania AUTM [phone] AUTM Unavailable Problems Description No Information Available [...] Daily Blanca Torres P.Lavell History Medications Sutab [phone] Tablets follow the instruction provided. drink plenty [...] lb BMI (Body Mass Index) 22.5 kg/m2 [place] Body Weight 125 lb Weight 61.236 kg BSA (Body Surface Area) 1.67 m2 12/16/2020 10:09am BP Systolic 120 mmHg BP Diastolic 82 mmHg Heart Rate 72 /min O2 % BldC Oximetry 97 % Height 65 inches 5'5" Weight 131.00 lb BMI (Body Mass Index) 21.8 kg/m2 [place] Body Weight 125 lb Weight 59.422 kg BSA (Body Surface Area) 1.65 m2 Results Test Acquired Date Facility Test Result H/L Range Note FVL/[place] 12/16/2020 [facility] SEE IMAGE FVC-Pred 3.34 L FVC-Pre 2.92 L FVC-%Pred-Pre 87 L FVC-LLN 2.63 L Fev1-Pred 2.57 L Fev1-Pre 2.14 L Fev1-%Pred-Pre 83 L Fev1-LLN 1.96 L Fev6-Pred 3.22 L Fev6-Pre 2.80 L Fev6-%Pred-Pre 86 L Fev6-LLN 2.52 L Xit4fau-Uvuw 77 % Vxu1czl-Epb 73 % Jwc2xlf-%Pred-Pre 94 % Tps7vki-KLY 68 % Zpg2xlt-Eyjm 96 % Lle0utu-Vwu 96 % Yxd0zdh-%Pred-Pre 99 % FEFMax-Pred 6.28 L/E/sec FEFMax-Pre 5.40 L/E/sec FEFMax-%Pred-Pre 86 L/E/sec FEFMax-LLN 4.51 L/E/sec Pxv1012-Zham 2.28 L/E/sec Dbl9802-Drd 1.48 L/E/sec Rli4527-%Pred-Pre 64 L/E/sec Sxh3568-WBD 1.00 L/E/sec ExpTime-Pre 8.54 sec Zfj0voa7-Koll 80 % Wdi4lzi0-Ccg 77 % Bzd5des0-%Pred-Pre 95 % Hpv3msc4-TNK 71 % Procedures Date Code Description Status 12/16/2020 83834 Office/Outpatient New Moderate M DM 45-59 Minutes Completed 12/16/2020 38419 Spirometry Completed 11/11/2020 44173 Office/Outpatient Established Lo w MDM 20-29 Min Completed Medical Devices Description No Information Available Encounters Type Date Location Provider Dx Diagnosis Office Visit 12/16/2020 10:00a [facility] Pulmonary/Thoracic DONOVAN Moss R91.8 Other nonspecific abnormal finding of lynette ng field F17.218 Nicotine dependence, cigaret yaima, w oth disorders Office Visit 11/11/2020 10:00a [facility] Gastroenterology [facility] maty Dacosta M.D. K58.2 Mixed irritable bowel syndro ar Z12.11 Encounter for screening for malignant neoplasm [...] K58.2 Mixed irritable bowel syndrome C suzanne Dacsota M.D. 11/11/2020 Z12.11 Encounter for screening for toby gnant neoplasm of colon Woody Dacosta M.D. Plan of Treatment Future Appointment(s):* 08/30/2021 11:30 am - DONOVAN Blackwell at [facility] Pulmonary/Thoracic * 04/19/2021 2:00 am - Woody Dacosta M.D. at [facility] Gastroenterology Practice 02/23/2021 - DONOVAN Blackwell* R91.8 [...] Reason for Referral Status Appt Date Radiology/Procedure 14034 Scheduled 02/15/2021 Ivory Zaragoza A.N.P. ABNORMAL LDCT Closed 12/16/2020 [facility] Pulmonary [address] [place], [place] [address] [phone] Kevin Beebe M.D. DIARRHEA CONSTIPATION, RLQ PAIN, COLO SCREEN ING Created [facility], Gastroenterology [address], [address] [place] [address] [phone]
--- OUTSIDE RECORDS SUMMARY | 2021-04-19 10:06 | CCD ---
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 Name Role Phone Blanca Torres Unavailable PROBLEMS Type Condition ICD9-CM Code [id number] Code Onset Dates Condition S tatus W/U Status Risk SNOMED Code Notes Problem Chronic back pain M54.9 Active confirmed 13 9856012 Problem Hyperlipidemia LDL goal <100 E78.5 Active confirme d 96610079 Problem Hyperlipidemia, unspecified hyperlipidemia type E7 8.5 Active confirmed 98611331 Problem Other chronic pain G89.29 Active confirmed 8 5687373 Problem Abnormal mammogram of right breast R92.8 Activ e confirmed 104683302 Problem Depression with anxiety F41.8 Active confirmed 698899655 Problem Abnormal CT scan, chest R93.89 Active confirmed [id number] Problem Hypothyroidism E03.9 Active confirmed 63355 008 Problem Gastroesophageal reflux disease, esophagitis pre sence not specified K21.9 Active confirmed 434554429 Problem Vitamin D deficiency E55.9 Active confirmed 75663906 Problem Cigarette nicotine dependence without complication F17.210 Active confirmed 48512566 Problem Hypothyroidism (acquired) E03.9 Active confirmed 219658800 ALLERGIES Allergen (clinical drug ingredient) Drug/Non Drug Allergy do cumented on EMR Reaction Allergy Type Onset Date Status morphine Morphine Sulfate([facility] Code:[address]-14) Hives Drug A llergy Active Codeine Phosphate (For Allergies Use Only) Hives Drug Allergy Active novacaine Hives Non Drug Allergy Active ENCOUNTERS from 1955 to 2021-02-04 Encounter Location Date Provider Diagnosis [address] [place] [address] Jan, Blanca Torres Hyperlipidemia LDL g oal <100 E78.5 ; Hypothyroidism E03.9 ; Depression with anxiety F41.8 ; Chronic back pain M54.9 and Vitamin D deficiency E55.9 IMMUNIZATIONS Vaccine Route Administration Date Status Influenza 6mo & up Fluzone Unknown October 12, 2016 Other s SOCIAL HISTORY Tobacco Use: Social History Observation Description Date Details (start date - stop date) Current Smoker Sex Assigned At : Social History Observation Description Sex Assigned At Unknown Education: Question Answer Notes Level of Education: Finished 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 Sexual Hx: Question Answer Notes Had sex in the last 12 months (vaginal, oral, or anal)? No Have you ever had an STD? No Drug and Alcohol Question Answer Notes Total Score: 0 Interpretation: No problems reported Alcohol Screening: Question Answer Notes Did you have a drink containing alcohol in the past year? No Points 0 Interpretation Negative Tobacco Use: Question Answer Notes Are you a: current smoker Patient counseled on the dangers of tobacco use and urged to quit: 10/05/2020 How many cigarettes a day do you smoke? 6-10 Are you interested in quitting? Not ready to quit Counseled the patient on smoking effects, education provided 10/05/2020 REASON FOR REFERRAL No Information VITAL SIGNS No information MEDICATIONS Medication SIG (Take, Route, Frequency, Duration) Notes Start Da te End Date Status Ketorolac Tromethamine 10 MG 1 tablet with food or mil k as needed Orally every 6 hrs for 2 days Feb, Not-Taking Vitamin D3 125 MCG (5000 UT) as directed Orally Once a day for 9 0 days Sep, Active FLUoxetine HCl 20 MG 2 tabs Orally Once a day for 90 days Active Gabapentin 300 MG 1 capsule Orally Three times daily for 90 days Jul, Active Levothyroxine Sodium 75 MCG 1 tablet Orally Once a day for 90 days Active Cephalexin 500 MG 1 tablet Orally bid for 7 day(s) May, Not-Taking Mucinex 600 MG 1 tablet as needed Orally every 12 hrs for 10 da y(s) Aug, Not-Taking Flonase 50 MCG/ACT 1 spray in each nostril Nasally Once a day fo r 30 day(s) Sep, Not-Taking Augmentin 875-125 MG 1 tablet Orally every 12 hrs for 7 day(s) Sep, Not-Taking ZyrTEC Allergy 10 MG 1 tablet Orally Once a day for 90 days Active Nystatin 689181 UNIT/GM 1 application to affected ar ea Externally Twice a day for 10 day(s) Nov, Not-Taking Atorvastatin Calcium 10 MG 1 tablet Orally Once a day for 90 day s October, Active Acidophilus Probiotic Complex - as directed Orally for 30 day(s) Sep, Not-Taking Fluticasone Propionate 50 MCG/ACT 1 spray in each nost ril Nasally bid for 30 day(s) Aug, Not-Taking PROCEDURES No Information RESULTS No Results REASON FOR VISIT Refills MEDICAL (GENERAL) HISTORY Type Description Date Medical History Generalized Anxiety D/o Medical History Hypothyroidism Medical History Hyperlipidemia Medical History Spondylosis Medical History Stress Test done 11/14/2016 Medical History Low dose lung CT done 05/05/2016, 9 Medical History shingles Medical History Vitamin D deficiency Surgical History x 2 Surgical History D & C 1985 Surgical History colonoscopy with polyp removal- Dr. Martin paul 2007 Goals Section No Information Health Concerns No Information MEDICAL EQUIPMENT No Information MENTAL STATUS No Information FUNCTIONAL STATUS No Information ASSESSMENTS Encounter Date Diagnosis Assessment Notes Treatment Notes Treatm ent Clinical Notes Jan, Hyperlipidemia LDL goal <100 (ICD-10 - E78.5) Jan, Hypothyroidism (ICD-10 - E03.9) Jan, Depression with anxiety (ICD-10 - F41.8) Jan, Chronic back pain (ICD-10 - M54.9) Jan, Vitamin D deficiency (ICD-10 - E55.9) PLAN OF TREATMENT Medication Medication Name Sig Start Date Stop Date Levothyroxine Sodium 75 MCG 1 tablet Orally Once a day for 90 da ys Atorvastatin Calcium 10 MG 1 tablet Orally Once a day for 90 day s October, Gabapentin 300 MG 1 capsule Orally Three times daily for 90 days 14 Jul, 2018 FLUoxetine HCl 20 MG 2 tabs Orally Once a day for 90 days ZyrTEC Allergy 10 MG 1 tablet Orally Once a day for 90 days Vitamin D3 125 MCG (5000 UT) as directed Orally Once a day f or 90 days 12 Sep, 2021 Insurance Providers Payer Name Payer Address Payer Phone Insured Name Patient Relati onship to Insured Coverage Start Date Coverage End Date MEDICAID [employer] [address] [facility] [id number] [place] self AETNA MEDICARE AETNA [facility] INSURANCE RollSale [address] [facility] [phone] WILL LEWIS
--- OUTSIDE RECORDS SUMMARY | 2021-04-19 10:06 | CCD | Continuity of Care Document ---
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 drink plenty [...] lb BMI (Body Mass Index) 22.5 kg/m2 [place] Body Weight 125 lb Weight 61.236 kg BSA (Body Surface Area) 1.67 m2 12/16/2020 10:09am BP Systolic 120 mmHg BP Diastolic 82 mmHg Heart Rate 72 /min O2 % BldC Oximetry 97 % Height 65 inches 5'5" Weight 131.00 lb BMI (Body Mass Index) 21.8 kg/m2 [place] Body Weight 125 lb Weight 59.422 kg BSA (Body Surface Area) 1.65 m2 Results Test Acquired Date Facility Test Result H/L Range Note FVL/[place] 12/16/2020 [facility] SEE IMAGE FVC-Pred 3.34 L FVC-Pre 2.92 L FVC-%Pred-Pre 87 L FVC-LLN 2.63 L Fev1-Pred 2.57 L Fev1-Pre 2.14 L Fev1-%Pred-Pre 83 L Fev1-LLN 1.96 L Fev6-Pred 3.22 L Fev6-Pre 2.80 L Fev6-%Pred-Pre 86 L Fev6-LLN 2.52 L Bqt9riv-Tybo 77 % Xmu1glu-Pud 73 % Fgy6qnx-%Pred-Pre 94 % Upp9pvm-SHQ 68 % Qxm6fde-Utqo 96 % Yqy7syc-Ksv 96 % Gwa8nux-%Pred-Pre 99 % FEFMax-Pred 6.28 L/E/sec FEFMax-Pre 5.40 L/E/sec FEFMax-%Pred-Pre 86 L/E/sec FEFMax-LLN 4.51 L/E/sec Kef7446-Pnkv 2.28 L/E/sec Ude5654-Gfg 1.48 L/E/sec Jgs8102-%Pred-Pre 64 L/E/sec Sfv5654-ETL 1.00 L/E/sec ExpTime-Pre 8.54 sec Ohx7kdf2-Gysr 80 % Stm8hfg2-Vuq 77 % Jun1wgq5-%Pred-Pre 95 % Cqw6vmg1-AXZ 71 % Procedures Date Code Description Status 02/23/2021 98728 Office/Outpatient Established Lo w MDM 20-29 Min Completed 12/16/2020 80055 Office/Outpatient New Moderate M DM 45-59 Minutes Completed 12/16/2020 92399 Spirometry Completed 11/11/2020 51376 Office/Outpatient Established Lo w MDM 20-29 Min Completed Medical Devices Description No Information Available Encounters Type Date Location Provider Dx Diagnosis Office Visit 02/23/2021 12:30p [facility] Ivory To DONOVAN mcmanus R91.8 Other nonspecific abnormal finding of lynette ng field Z87.891 Personal history of nicotine dependence Office Visit 12/16/2020 10:00a [facility] Ivory To DONOVAN mcmanus R91.8 Other nonspecific abnormal finding of lynette ng field F17.218 Nicotine dependence, cigaret yaima, w oth disorders Office Visit 11/11/2020 10:00a [facility] maty Dacosta M.D. K58.2 Mixed irritable bowel syndro ga Z12.11 Encounter for screening for malignant neoplasm of colon Assessments Date Code Description Provider 02/23/2021 R91.8 Other nonspecific abnormal findi ng of lung field DONOVAN Blackwell 02/23/2021 Z87.891 Personal history of nicotine dep endence Ivory Zaragoza, DONOVAN 12/16/2020 R91.8 Other nonspecific abnormal findi ng of lung field Ivory Zaragoza, DONOVAN 12/16/2020 F17.218 Nicotine dependence, cigarettes, with other nicotine-induced disorders DONOVAN Blackwell 11/11/2020 K58.2 Mixed irritable bowel syndrome Jania Dacosta M.D. 11/11/2020 Z12.11 Encounter for screening for toby gnant neoplasm of colon Woody Dacosta M.D. Plan of Treatment Future Appointment(s):* 08/30/2021 11:30 am - DONOVAN Blackwell at [facility] * 04/19/2021 2:00 am - Woody Dacosta M.D. at [facility] 02/23/2021 - DONOVAN Blackwell* R91.8 [...] Reason for Referral Status Appt Date Radiology/Procedure 94983 Scheduled 02/15/2021 Ivory Zaragoza, LavellNFred ABNORMAL LDCT Closed 12/16/2020 [facility] [address] [place], [place] [address] [phone] Kevin Beebe M.D. DIARRHEA CONSTIPATION, RLQ PAIN, COLO SCREEN ING Created [facility], Gastroenterology [address], [address] [place] [address] [phone]
--- OUTSIDE RECORDS SUMMARY | 2021-04-19 10:06 | CCD | Continuity of Care Document ---
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 drink plenty [...] lb BMI (Body Mass Index) 22.5 kg/m2 [place] Body Weight 125 lb Weight 61.236 kg BSA (Body Surface Area) 1.67 m2 12/16/2020 10:09am BP Systolic 120 mmHg BP Diastolic 82 mmHg Heart Rate 72 /min O2 % BldC Oximetry 97 % Height 65 inches 5'5" Weight 131.00 lb BMI (Body Mass Index) 21.8 kg/m2 [place] Body Weight 125 lb Weight 59.422 kg BSA (Body Surface Area) 1.65 m2 Results Test Acquired Date Facility Test Result H/L Range Note FVL/[place] 12/16/2020 [facility] SEE IMAGE FVC-Pred 3.34 L FVC-Pre 2.92 L FVC-%Pred-Pre 87 L FVC-LLN 2.63 L Fev1-Pred 2.57 L Fev1-Pre 2.14 L Fev1-%Pred-Pre 83 L Fev1-LLN 1.96 L Fev6-Pred 3.22 L Fev6-Pre 2.80 L Fev6-%Pred-Pre 86 L Fev6-LLN 2.52 L Nry5vyw-Zxrh 77 % Lhi8hdt-Pyg 73 % Taf7eul-%Pred-Pre 94 % Kyv3iov-RPH 68 % Qxg4chb-Adln 96 % Awb6nye-Krp 96 % Wic8isr-%Pred-Pre 99 % FEFMax-Pred 6.28 L/E/sec FEFMax-Pre 5.40 L/E/sec FEFMax-%Pred-Pre 86 L/E/sec FEFMax-LLN 4.51 L/E/sec Lke2782-Qftf 2.28 L/E/sec Ldo8516-Swp 1.48 L/E/sec Tln1196-%Pred-Pre 64 L/E/sec Dox8869-NAJ 1.00 L/E/sec ExpTime-Pre 8.54 sec Zyj0nod7-Cqbu 80 % Pwx1gkf9-Ezy 77 % Fkk4snh5-%Pred-Pre 95 % Qpd9rwl5-SGD 71 % Procedures Date Code Description Status 12/16/2020 47797 Office/Outpatient New Moderate M DM 45-59 Minutes Completed 12/16/2020 92833 Spirometry Completed 11/11/2020 16739 Office/Outpatient Established Lo w MDM 20-29 Min Completed Medical Devices Description No Information Available Encounters Type Date Location Provider Dx Diagnosis Office Visit 12/16/2020 10:00a [facility] DONOVAN Moss R91.8 Other nonspecific abnormal finding of lynette ng field F17.218 Nicotine dependence, cigaret yaima, w oth disorders Office Visit 11/11/2020 10:00a [facility] Gastroenterology [facility] maty Dacosta M.D. K58.2 Mixed irritable bowel syndro md Z12.11 Encounter for screening for malignant neoplasm [...] am - DONOVAN Blackwell at [facility]acic * 04/19/2021 2:00 am - Woody Dacosta M.D. at [facility] 02/23/2021 - DONOVAN Blackwell* [...] Reason for Referral Status Appt Date Radiology/Procedure 45482 Scheduled 02/15/2021 Ivory Zaragoza A.N.P. ABNORMAL LDCT Closed 12/16/2020 [facility] [address] [place], [place] [address] [phone] Kevin Beebe M.D. DIARRHEA CONSTIPATION, RLQ PAIN, COLO SCREEN ING Created [facility], Gastroenterology [address], [address] [place] [address] [phone]
--- OUTSIDE RECORDS SUMMARY | 2021-04-19 10:06 | CCD | Continuity of Care Document ---
Author Author Diane ZARAGOZA [facility] Organization Unknown Address [address] [place] [address] Phone [phone] Care Team Providers Care Drum Operator Name Role Phone Blanca Torres P.Lavell-Jania AUTM AUTM Unavailable Problems Description No Information Available [...] Daily Blanca Torres P.Lavell History Medications Sutab [id number] Tablets follow the instruction provided. drink plenty [...] lb BMI (Body Mass Index) 22.5 kg/m2 [place] Body Weight 125 lb Weight 61.236 kg BSA (Body Surface Area) 1.67 m2 12/16/2020 10:09am BP Systolic 120 mmHg BP Diastolic 82 mmHg Heart Rate 72 /min O2 % BldC Oximetry 97 % Height 65 inches 5'5" Weight 131.00 lb BMI (Body Mass Index) 21.8 kg/m2 [place] Body Weight 125 lb Weight 59.422 kg BSA (Body Surface Area) 1.65 m2 Results Test Acquired Date Facility Test Result H/L Range Note FVL/[place] 12/16/2020 [facility] SEE IMAGE FVC-Pred 3.34 L FVC-Pre 2.92 L FVC-%Pred-Pre 87 L FVC-LLN 2.63 L Fev1-Pred 2.57 L Fev1-Pre 2.14 L Fev1-%Pred-Pre 83 L Fev1-LLN 1.96 L Fev6-Pred 3.22 L Fev6-Pre 2.80 L Fev6-%Pred-Pre 86 L Fev6-LLN 2.52 L Bru5peu-Qqdx 77 % Qos3gct-Prd 73 % Ozy0wiv-%Pred-Pre 94 % Oxm4wyf-TXV 68 % Lyy2vlc-Sevj 96 % Xnk4vzs-Unq 96 % Shl3jgi-%Pred-Pre 99 % FEFMax-Pred 6.28 L/E/sec FEFMax-Pre 5.40 L/E/sec FEFMax-%Pred-Pre 86 L/E/sec FEFMax-LLN 4.51 L/E/sec Fkk9956-Xlrs 2.28 L/E/sec Mnr4147-Dai 1.48 L/E/sec Yib3443-%Pred-Pre 64 L/E/sec Vmo1778-CIL 1.00 L/E/sec ExpTime-Pre 8.54 sec Xat6xth9-Spjq 80 % Izg5fiq0-Nev 77 % Pym1kwx7-%Pred-Pre 95 % Uew5ukb5-XAX 71 % Procedures Date Code Description Status 12/16/2020 52672 Office/Outpatient New Moderate M DM 45-59 Minutes Completed 12/16/2020 17085 Spirometry Completed 11/11/2020 82063 Office/Outpatient Established Lo w MDM 20-29 Min Completed Medical Devices Description No Information Available Encounters Type Date Location Provider Dx Diagnosis Office Visit 12/16/2020 10:00a [facility]Thoracic DONOVAN Moss R91.8 Other nonspecific abnormal finding of lynette ng field F17.218 Nicotine dependence, cigaret yaima, w oth disorders Office Visit 11/11/2020 10:00a [facility] Gastroenterology [facility] maty Dacosta M.D. K58.2 Mixed irritable [...] 08/30/2021 11:30 am - DONOVAN Blackwell at [facility]acic * 04/19/2021 2:00 am - Woody Dacosta M.D. at [facility]enter[facility] 02/23/2021 - DONOVAN Blackwell* [...] Reason for Referral Status Appt Date Radiology/Procedure 45385 Scheduled 02/15/2021 Ivory Zaragoza A.N.P. ABNORMAL LDCT Closed 12/16/2020 [facility] [address] [place], [place] [address] [phone] Kevin Beebe M.D. DIARRHEA CONSTIPATION, RLQ PAIN, COLO SCREEN ING Created [facility], Gastroenterology [address], [address] [place] [address] [phone]
--- OUTSIDE RECORDS SUMMARY | 2021-04-19 10:06 | CCD ---
Author Author [facility] Organization [facility] Address Unknown Phone Unavailable Care Team Providers Care Potter Or Ceramic Artist Name Role Phone Fredy, L Ivory RELIEF PHARMACIST Unavailable Unavailable Fredy, L Ivory RELIEF PHARMACIST Unavailable Unavailable Fredy, L Ivory RELIEF PHARMACIST Unavailable Unavailable Fredy, L Ivory RELIEF PHARMACIST Unavailable Unavailable Fredy, L Ivory RELIEF PHARMACIST Unavailable Unavailable Fredy, L Ivory RELIEF PHARMACIST Unavailable Unavailable Fredy, L Ivory RELIEF PHARMACIST Unavailable Unavailable Fredy, L Ivory RELIEF PHARMACIST Unavailable Unavailable Fredy, L Ivory RELIEF PHARMACIST Unavailable Unavailable Fredy, L Ivory RELIEF PHARMACIST Unavailable Unavailable Fredy, L Ivory RELIEF PHARMACIST Unavailable Unavailable Fredy, L Ivory RELIEF PHARMACIST Unavailable Unavailable Fredy, L Ivory RELIEF PHARMACIST Unavailable Unavailable Fredy, L Ivory RELIEF PHARMACIST Unavailable Unavailable Fredy, L Ivory RELIEF PHARMACIST Unavailable Unavailable Fredy, L Ivory RELIEF PHARMACIST Unavailable Unavailable Fredy, L Ivory RELIEF PHARMACIST Unavailable Unavailable Fredy, L Ivory RELIEF PHARMACIST Unavailable Unavailable Fredy, L Ivory RELIEF PHARMACIST Unavailable Unavailable Fredy, L Ivory RELIEF PHARMACIST Unavailable Unavailable Fredy, L Ivory RELIEF PHARMACIST Unavailable Unavailable Fredy, L Ivory RELIEF PHARMACIST Unavailable Unavailable Fredy, L Ivory RELIEF PHARMACIST Unavailable Unavailable Fredy, L Ivory RELIEF PHARMACIST Unavailable Unavailable Fredy, L Ivory RELIEF PHARMACIST Unavailable Unavailable Chi Mckee MD Unavailable Unavailable Chi Mckee MD Unavailable Unavailable Chi Mckee MD Unavailable Unavailable Chi Mckee MD Unavailable Unavailable Chi Mckee MD Unavailable Unavailable Chi Mckee MD Unavailable Unavailable Chi Mckee MD Unavailable Unavailable Chi Mckee MD Unavailable Unavailable Chi Mckee MD Unavailable Unavailable Chi Mckee MD Unavailable Unavailable Chi Mckee MD Unavailable Unavailable Chi Mckee MD Unavailable Unavailable Chi Mckee MD Unavailable Unavailable Chi Mckee MD Unavailable Unavailable Chi Mckee MD Unavailable Unavailable Chi Mckee MD Unavailable Unavailable Chi Mckee MD Unavailable Unavailable Chi Mckee MD Unavailable Unavailable Chi Mckee MD Unavailable Unavailable Chi Mckee MD Unavailable Unavailable Chi Mckee MD Unavailable Unavailable Chi Mckee MD Unavailable Unavailable Chi Mckee MD Unavailable Unavailable Chi Mckee MD Unavailable Unavailable Chi Mckee MD Unavailable Unavailable Chi Mckee MD Unavailable Unavailable Chi Mckee MD Unavailable Unavailable Chi Mckee MD Unavailable Unavailable Chi Mckee MD Unavailable Unavailable Chi Mckee MD Unavailable Unavailable Chi Mckee MD Unavailable Unavailable Chi Mckee MD Unavailable Unavailable Chi Mckee MD Unavailable Unavailable Chi Mckee MD Unavailable Unavailable Chi Mckee MD Unavailable Unavailable Chi Mckee MD Unavailable Unavailable Chi Mckee MD Unavailable Unavailable Chi Mckee MD Unavailable Unavailable Chi Mckee MD Unavailable Unavailable Chi Mckee MD Unavailable Unavailable Chi Mckee MD Unavailable Unavailable Chi Mckee MD Unavailable Unavailable Chi Mckee MD Unavailable Unavailable Chi Mckee MD Unavailable Unavailable Chi Mckee MD Unavailable Unavailable Chi Mckee MD Unavailable Unavailable Chi Mckee MD Unavailable Unavailable Chi Mckee MD Unavailable Unavailable Chi Mckee MD Unavailable Unavailable Chi Mckee MD Unavailable Unavailable Chi Mckee MD Unavailable Unavailable Chi Mckee MD Unavailable Unavailable Chi Mckee MD Unavailable Unavailable Chi Mckee MD Unavailable Unavailable Chi Mckee MD Unavailable Unavailable Chi Mckee MD Unavailable Unavailable Chi Mckee MD Unavailable Unavailable Chi Mckee MD Unavailable Unavailable Chi Mckee MD Unavailable Unavailable Chi Mckee MD Unavailable Unavailable Chi Mckee MD Unavailable Unavailable Chi Mckee MD Unavailable Unavailable Chi Mckee MD Unavailable Unavailable Chi Mckee MD Unavailable Unavailable Chi Mckee MD Unavailable Unavailable Chi Mckee MD Unavailable Unavailable Chi Mckee MD Unavailable Unavailable Chi Mckee MD Unavailable Unavailable Chi Mckee MD Unavailable Unavailable Chi Mckee MD Unavailable Unavailable Chi Mckee MD Unavailable Unavailable Chi Mckee MD Unavailable Unavailable Chi Mckee MD Unavailable Unavailable Chi Mckee MD Unavailable Unavailable Chi Mckee MD Unavailable Unavailable Chi Mckee MD Unavailable Unavailable Chi Mckee MD Unavailable Unavailable Chi Mckee MD Unavailable Unavailable Chi Mckee MD Unavailable Unavailable Chi Mckee MD Unavailable Unavailable Chi Mckee MD Unavailable Unavailable Chi Mckee MD Unavailable Unavailable Chi Mckee MD Unavailable Unavailable Chi Mckee MD Unavailable Unavailable Chi Mckee MD Unavailable Unavailable Chi Mckee MD Unavailable Unavailable Chi Mckee MD Unavailable Unavailable Chi Mckee MD Unavailable Unavailable Chi Mckee MD Unavailable Unavailable Chi Mckee MD Unavailable Unavailable Chi Mckee MD Unavailable Unavailable Chi Mckee MD Unavailable Unavailable Chi Mckee MD Unavailable Unavailable SYSTEM IN, NOT IN PROVIDER Unavailable Unavailable Fahsel RELIEF PHARMACIST, RELIEF PHARMACIST L Jeanna RELIEF PHARMACIST Unavailable + 24 Fah[place] RELIEF PHARMACIST, RELIEF PHARMACIST L Jeanna RELIEF PHARMACIST Unavailable + 24 Fahsel RELIEF PHARMACIST, RELIEF PHARMACIST L Jeanna RELIEF PHARMACIST Unavailable + 24 Fahsel RELIEF PHARMACIST, RELIEF PHARMACIST L Jeanna RELIEF PHARMACIST Unavailable + 24 Fahsel RELIEF PHARMACIST, RELIEF PHARMACIST L Jeanna RELIEF PHARMACIST Unavailable + 24 Fah[place] RELIEF PHARMACIST, RELIEF PHARMACIST L Jeanna RELIEF PHARMACIST Unavailable + 24 Fahsel RELIEF PHARMACIST, RELIEF PHARMACIST L Jeanna RELIEF PHARMACIST Unavailable + 24 Fahsel RELIEF PHARMACIST, RELIEF PHARMACIST L Jeanna RELIEF PHARMACIST Unavailable + 24 Fah[place] RELIEF PHARMACIST, RELIEF PHARMACIST L Jeanna RELIEF PHARMACIST Unavailable + 24 Fahsel RELIEF PHARMACIST, RELIEF PHARMACIST L Jeanna RELIEF PHARMACIST Unavailable + 24 Fahsel RELIEF PHARMACIST, RELIEF PHARMACIST L Jeanna RELIEF PHARMACIST Unavailable + 24 Fah[place] RELIEF PHARMACIST, RELIEF PHARMACIST L Jeanna RELIEF PHARMACIST Unavailable + 24 Fah[place] RELIEF PHARMACIST, RELIEF PHARMACIST L Jeanna RELIEF PHARMACIST Unavailable + 24 Fah[place] RELIEF PHARMACIST, RELIEF PHARMACIST L Jeanna RELIEF PHARMACIST Unavailable + 24 F[place] RELIEF PHARMACIST, RELIEF PHARMACIST L Jeanna RELIEF PHARMACIST Unavailable + 24 F[place] RELIEF PHARMACIST, RELIEF PHARMACIST L Jeanna RELIEF PHARMACIST Unavailable + 24 [place] RELIEF PHARMACIST, RELIEF PHARMACIST L Jenana RELIEF PHARMACIST Unavailable + 24 [place] RELIEF PHARMACIST, RELIEF PHARMACIST L Jeanna RELIEF PHARMACIST Unavailable 24 [place] RELIEF PHARMACIST, RELIEF PHARMACIST L Jeanna RELIEF PHARMACIST Unavailable 24 [place] RELIEF PHARMACIST, RELIEF PHARMACIST L Jeanna RELIEF PHARMACIST Unavailable 24 [place] RELIEF PHARMACIST, RELIEF PHARMACIST L Jeanna RELIEF PHARMACIST Unavailable 24 [place] RELIEF PHARMACIST, RELIEF PHARMACIST L Jeanna RELIEF PHARMACIST Unavailable 24 [place] RELIEF PHARMACIST, RELIEF PHARMACIST L Jeanna RELIEF PHARMACIST Unavailable 24 Charlotte Torres Blanca PA Unavailable Unavailable Torres, Charlotte Caldwelle PA Unavailable Unavailable Torres, Charlotte Caldwelle PA Unavailable Unavailable Torres, Charlotte Blanca PA Unavailable Unavailable Brian, Charlotte Caldwelle PA Unavailable Unavailable Torres, Charlotte Blanca PA Unavailable Unavailable Torres, Charlotte Blanca PA Unavailable Unavailable Torres, Charlotte Blanca PA Unavailable Unavailable Torres, Charlotte Caldwelle PA Unavailable Unavailable Torres, Charlotte Blanca PA Unavailable Unavailable Torres, Charlotte Blanca PA Unavailable Unavailable Torres, Charlotte Blanca PA Unavailable Unavailable Torres, Charlotte Blanca PA Unavailable Unavailable Torres, Charlotte Blanca PA Unavailable Unavailable Torres, Charlotte Caldwelle PA Unavailable Unavailable Torres, Charlotte Blanca PA Unavailable Unavailable Torres, Charlotte Blanca PA Unavailable Unavailable Torres, Charlotte Blanca PA Unavailable Unavailable Torres, Charlotte Blanca PA Unavailable Unavailable Torres, Charlotte Blanca PA Unavailable Unavailable Torres, Charlotte Blanca PA Unavailable Unavailable Torres, Charlotte Blanca PA Unavailable Unavailable Torres, Charlotte Blanca PA Unavailable Unavailable Torres, Charlotte Blanca PA Unavailable Unavailable Torres, Charlotte Blanca PA Unavailable Unavailable Torres, Charlotte Blanca PA Unavailable Unavailable Torres, Charlotte Blanca PA Unavailable Unavailable Torres, Charlotte Blanca PA Unavailable Unavailable Torres, Charlotte Blanca PA Unavailable Unavailable Torres, Charlotte Blanca PA Unavailable Unavailable Torres, Charlotte Blanca PA Unavailable Unavailable Torres, Charlotte Blanca PA Unavailable Unavailable Torres, Charlotte Blanca PA Unavailable Unavailable Torres, Charlotte Blanca PA Unavailable Unavailable Torres, Charlotte Blanca PA Unavailable Unavailable Torres, Charlotte Blanca PA Unavailable Unavailable Torres, Charlotte Blanca PA Unavailable Unavailable Torres, Charlotte Blanca PA Unavailable Unavailable Torres, Charlotte Blanca PA Unavailable Unavailable Torres, Charlotte Blanca PA Unavailable Unavailable Torres, Charlotte Blanca PA Unavailable Unavailable Torres, Charlotte Blanca PA Unavailable Unavailable Torres, Charlotte Blanca PA Unavailable Unavailable Torres, Charlotte Blanca PA Unavailable Unavailable Torres, Charlotte Blanca PA Unavailable Unavailable Torres, Charlotte Blanca PA Unavailable Unavailable Torres, Charlotte Blanca PA Unavailable Unavailable Torres, Charlotte Blanca PA Unavailable Unavailable Torres, Charlotte Blanca PA Unavailable Unavailable Eduardo GUNN Unavailable Unavailable Derrick HARRIS MD Unavailable Unavailable Derrick HARRIS MD Unavailable Unavailable Derrick HARRIS MD Unavailable Unavailable Derrick HARRIS MD Unavailable Unavailable Derrick HARRIS MD Unavailable Unavailable Derrick HARRIS MD Unavailable Unavailable Derrick HARRIS MD Unavailable Unavailable Derrick HARRIS MD Unavailable Unavailable Derrick HARRIS MD Unavailable Unavailable Derrick HARRIS MD Unavailable Unavailable Derrick HARRIS MD Unavailable Unavailable Derrick HARRIS MD Unavailable Unavailable Derrick HARRIS MD Unavailable Unavailable Derrick HARRIS MD Unavailable Unavailable Derrick HARRIS MD Unavailable Unavailable Derrick HARRIS MD Unavailable Unavailable Derrick HARRIS MD Unavailable Unavailable Derrick HARRIS MD Unavailable Unavailable Derrick HARRIS MD Unavailable Unavailable Derrick HARRIS MD Unavailable Unavailable Derrick HARRIS MD Unavailable Unavailable Derrick HARRIS MD Unavailable Unavailable Derrick HARRIS MD Unavailable Unavailable Derrick HARRIS MD Unavailable Unavailable Derrick HARRIS MD Unavailable Unavailable Derrick HARRIS MD Unavailable Unavailable Derrick HARRIS MD Unavailable Unavailable Derrick HARRIS MD Unavailable Unavailable Derrick HARRIS MD Unavailable Unavailable Derrick HARRIS MD Unavailable Unavailable Derrick HARRIS MD Unavailable Unavailable Derrick HARRIS MD Unavailable Unavailable Derrick HARRIS LUIS BENEDICT Unavailable Unavailable Chand, Esperance Fadumo Unavailable Unavailable Chand, Esperance Fadumo Unavailable Unavailable Chand, Esperance Fadumo Unavailable Unavailable Chand, Esperance Fadumo Unavailable Unavailable Chand, Esperance Fadumo Unavailable Unavailable Chand, Esperance Fadumo Unavailable Unavailable Chand, Esperance Fadumo Unavailable Unavailable Chand, Esperance Fadumo Unavailable Unavailable Chand, Esperance Fadumo Unavailable Unavailable Chand, Esperance Fadumo Unavailable Unavailable Chand, Esperance Fadumo Unavailable Unavailable Chand, Esperance Fadumo Unavailable Unavailable Chand, Esperance Fadumo Unavailable Unavailable Re-disclosure Warning The records that you are about to access may contain information from federally-assisted alcohol or drug abuse programs. If such information is present, then the following federally mandated warning applies: This information has been disclosed to you from records protected by federal confidentiality rules (42 CFR part 2). The federal rules prohibit you from making any further disclosure of this information unless further disclosure is expressly permitted by the written consent of the person to whom it pertains or as otherwise permitted by 42 CFR part 2. A general authorization for the release of medical or other information is NOT sufficient for this purpose. The Federal rules restrict any use of the information to criminally investigate or prosecute any alcohol or drug abuse patient.The records that you are about to access may contain highly sensitive health information, the redisclosure of which is protected by Article 27-F of the [facility] Public Health law. If you continue you may have access to information: Regarding HIV / AIDS; Provided by facilities licensed or operated by the [facility] Office of Mental Health; or Provided by the [facility] Office for People With Developmental Disabilities. If such information is present, then the following [facility] mandated warning applies: This information has been disclosed to you from confidential records which are protected by state law. State law prohibits you from making any further disclosure of this information without the specific written consent of the person to whom it pertains, or as otherwise permitted by law. Any unauthorized further disclosure in violation of state law may result in a fine or retirement sentence or both. A general authorization for the release of medical or other information is NOT sufficient authorization for further disc losure. Allergies and Adverse Reactions Type Description Substance Reaction Status Data Source(s ) Allergy to substance Allergy to substance Allergy to substance [place] ([facility]) Allergy to substance Allergy to substance Allergy to substance [place] ([facility]) Encounters Encounter Providers Location Date Indications Data Source(s ) Outpatient Attender: Ivory Romero/Downey/Max/Reindl 02/23/2021 12:30:00 PM EDT [facility] ([facility]) [place] [address] [facility] [address] 02/03/2021 12:00:00 AM EDT eCW1 ([facility]) Outpatient Attender: CONTRERAS Gunn NPAttender: JEANNA GUNNReferrer: JEANNA GUNN 01/05/2021 12:00:00 AM EDT [facility] Outpatient Referrer: JEANNA GUNN 01/05/2021 12:00:00 AM T [facility] Outpatient Attender: Ivory Romero/Downey/Max/Reindl 12/16/2020 10:00:00 AM EDT [facility] ([facility]) [place] [address] [facility] [address] 11/17/2020 12:00:00 AM EDT eCW1 ([facility]) Outpatient Attender: LUIS Romero/Downey/Ang el/Reindl 11/11/2020 10:00:00 AM EDT [facility] ([facility]) [place] [address] [facility] [address] 10/05/2020 12:00:00 AM EDT eCW1 ([facility]) [place]patient [address] [facility] [address] 09/28/2020 12:00:00 AM EDT eCW1 ([facility]) Blas Mckee MD: [address] [place] [phone], Ph. Attender: Blas Mckee MD [facility] Medical 09/21/2020 12:00:00 AM EDT [place] ([facility]) [place] [address] [facility] [address] 09/04/2020 12:00:00 AM EST eCW1 ([facility]) [place] [address] [facility] [address] 09/03/2020 12:00:00 AM EST eCW1 ([facility]) SHANNON WoodC: [address] [place] [address], Ph. Attender: Fadumo Chand [facility] Medical 08/26/2020 12:00:00 AM EST [place] ([facility]) SHANNON WoodC: [address] [place] [address], Ph. Attender: Fadumo Chand [facility] Medical 08/26/2020 12:00:00 AM EST [place] ([facility]) Outpatient Referrer: JEANNA GUNN 07/20/2020 12:00 :00 AM EST Other abnormal and inconclusive findings on diagnostic imaging of [facility] Other abnormal and inconclusive findings on diagnostic imaging of breast Outpatient Referrer: JEANNA GUNN 07/20/2020 12:00 :00 AM EST Other abnormal and inconclusive findings on diagnostic imaging of [facility] Other abnormal and inconclusive findings on diagnostic imaging of breast Outpatient Attender: JEANNA GUNNReferrer: JEANNA GUNN [id number] 07/20/2020 12:00:00 AM EST Other abnormal and inconclusive findings on diagnostic imaging of [facility] Other abnormal and inconclusive findings on diagnostic imaging of breast Outpatient Referrer: JEANNA GUNN 07/16/2020 12:00:00 AM [facility] Outpatient Attender: JEANNA GUNNReferrer: PRISCILLA VASQUEZ 07/16/2020 12:00:00 AM EST [facility] Unknown [address] [facility] [address] 07/09/2020 12:00:00 AM EST eCW1 ([facility]) [place] [address] [facility] [address] 07/06/2020 12:00:00 AM EST [facility]CW1 [facility] Outpatient Attender: Blanca Coronado: Blanca MUKHERJEE 07/02/2020 09:00:00 AM [facility] Unknown [address] [facility] [address] 07/02/2020 12:00:00 AM EST eCW1 [facility] [place] [address] [facility] [address] 07/01/2020 12:00:00 AM EST eCW1 ([facility] Unknown [address] [facility] [address] 06/22/2020 12:00:00 AM EST eCW1 ([facility]) [place] [address] [facility] [place] [address] 06/11/2020 12:00:00 AM EST eCW1 [facility]) Unknown [address] [facility] [address] 06/11/2020 12:00:00 AM EST eCW1 ([facility]) [place] [address] [facility] [place] [address] 06/08/2020 12:00:00 AM EST eCW1 ([facility]) Outpatient [address] [facility] [place] [address] 06/04/2020 12:00:00 AM EST eCW1 ([facility]) [place] [address] [facility] [place] [address] 05/13/2020 12:00:00 AM EST eCW1 ([facility]) Immunizations Vaccine Date Status Description Data Source(s) COVID-19, mRNA, LNP-S, PF, 100 mcg/0.5 mL dose 09/21/2020 05 :28:39 PM EDT completed 10.5 mL [place] ([facility]) COVID-19 VACCINE Moderna 09/21/2020 12:00:00 AM EDT completed [place] Vaccine Series Complete: YESThis Data wa s Submitted to [facility] Via [employer]. COVID-19, mRNA, LNP-S, PF, 100 mcg/0.5 mL dose 08/26/2020 02 :53:56 PM EST completed 10.5 mL [place] ([facility]) COVID-19, mRNA, LNP-S, PF, 100 mcg/0.5 mL dose 08/26/2020 02 :53:56 PM EST completed .5 mL [place] ([facility]) COVID-19 VACCINE Moderna 08/26/2020 12:00:00 AM EST completed [place] Vaccine Series Complete: NOThis Data was Submitted to [facility] Via [employer]. Medications Medication Brand Name Start Date Product Form Dose Route Admi nistrative Instructions Pharmacy Instructions Status Indications Reaction Description Data Source(s) Sutab Sutab 11/11/2020 12:00:00 AM EDT completed [facility] ([facility]) POLYETHYLENE GLYCOL 3350 142 MG/ML Oral Solution [Miralax] M iralax 11/11/2020 12:00:00 AM EDT completed [facility] ([facility] ) Vitamin D3 125 MCG (5000 UT) Vitamin D3 125 MCG (5000 UT) 12:00:00 AM EDT active Vitamin D3 125 MC G (5000 UT) eCW1 ([facility]) Vitamin D3 125 MCG (5000 UT) Vitamin D3 125 MCG (5000 UT) 12:00:00 AM EDT active Vitamin D3 125 MC G (5000 UT) eCW1 ([facility]) Vitamin D3 125 MCG (5000 UT) Vitamin D3 125 MCG (5000 UT) 12:00:00 AM EDT active Vitamin D3 125 MC G (5000 UT) eCW1 ([facility]) Vitamin D3 125 MCG (5000 UT) Vitamin D3 125 MCG (5000 UT) 12:00:00 AM EDT active Vitamin D3 125 MC G (5000 UT) eCW1 ([facility]) Cephalexin 500 MG Oral Tablet Cephalexin 500 MG 06/08/2020 12:00:00 AM EST 1.0 {tablet} active Cephalexin 500 MG eCW1 ([facility]) Cephalexin 500 MG Oral Tablet Cephalexin 500 MG 06/08/2020 12:00:00 AM EST 1.0 {tablet} suspended Cephalexin 500 MG eC W1 ([facility]) Cephalexin 500 MG Oral Tablet Cephalexin 500 MG 06/08/2020 12:00:00 AM EST 1.0 {tablet} active Cephalexin 500 MG eCW1 ([facility]) Cephalexin 500 MG Oral Tablet Cephalexin 500 MG 06/08/2020 12:00:00 AM EST 1.0 {tablet} active Cephalexin 500 MG eCW1 ([facility]) Cephalexin 500 MG Oral Tablet Cephalexin 500 MG 06/08/2020 12:00:00 AM EST 1.0 {tablet} active Cephalexin 500 MG eCW1 ([facility]) Cephalexin 500 MG Oral Tablet Cephalexin 500 MG 06/08/2020 12:00:00 AM EST 1.0 {tablet} suspended Cephalexin 500 MG eC W1 ([facility]) Cephalexin 500 MG Oral Tablet Cephalexin 500 MG 06/08/2020 12:00:00 AM EST 1.0 {tablet} suspended Cephalexin 500 MG eC W1 ([facility]) Cephalexin 500 MG Oral Tablet Cephalexin 500 MG 06/08/2020 12:00:00 AM EST 1.0 {tablet} active Cephalexin 500 MG eCW1 ([facility]) Cephalexin 500 MG Oral Tablet Cephalexin 500 MG 06/08/2020 12:00:00 AM EST 1.0 {tablet} active Cephalexin 500 MG eCW1 ([facility]) Cephalexin 500 MG Oral Tablet Cephalexin 500 MG 06/08/2020 12:00:00 AM EST 1.0 {tablet} active Cephalexin 500 MG eCW1 ([facility]) Cephalexin 500 MG Oral Tablet Cephalexin 500 MG 06/08/2020 12:00:00 AM EST 1.0 {tablet} suspended Cephalexin 500 MG eC W1 ([facility]) Cephalexin 500 MG Oral Tablet Cephalexin 500 MG 06/08/2020 12:00:00 AM EST 1.0 {tablet} active Cephalexin 500 MG eCW1 ([facility]) Cephalexin 500 MG Oral Tablet Cephalexin 500 MG 06/08/2020 12:00:00 AM EST 1.0 {tablet} active Cephalexin 500 MG eCW1 ([facility]) Cephalexin 500 MG Oral Tablet Cephalexin 500 MG 06/08/2020 12:00:00 AM EST 1.0 {tablet} active Cephalexin 500 MG eCW1 ([facility]) Cephalexin 500 MG Oral Tablet Cephalexin 500 MG 06/08/2020 12:00:00 AM EST 1.0 {tablet} active Cephalexin 500 MG eCW1 ([facility]) Insurance Providers Payer name Policy type / Coverage type Policy ID Covered constitution party ID Covered constitution party's relationship to blank Policy Blank Plan Information [facility] [id number] Self [id number] [facility] [id number] [id number] AETNA MEDICARE COMPLETE G [id number] Self [id number] AETNA MEDICARE [id number] SP [id number] MEDICAID [id number] SP [id number] AETNA MEDICARE COMPLETE G [id number] Self [id number] ANSI-Not a Secondary Insurance [id number] ANSI-Not a Secondary Insurance [id number] ANSI-Medicare Part B [id number] ANSI-Medicare Part B [id number] ANSI-Medicaid [id number] ANSI-Medicaid [id number] ANSI-Not a Secondary Insurance 13j45h1g-b977-04jw-k76h-27gf2 605i2pe 42r92c9o-g384-90bu-j83s-20hi8325q4gt ANSI-Medicaid [id number] ANSI-Medicare Part B [id number] ANSI-Not a Secondary Insurance 72bfcly6-3t54-6xki-nbm4-74386 [id number] 43nbeac5-0m95-3tjh-[id number] ANSI-Medicare Part B [id number]-[id number]-7t5w6g4i-3v8l-ca77-p21w06zl5jum ANSI-Medicaid [id number] ANSI-Medicaid [id number] ANSI-Medicare Part B [id number] ANSI-Not a Secondary Insurance [id number]-r2t7-883h-c24k-4r235 cu42d3o 23k31vl0-o6y7-532s-t67t-7r979kq01r5n ANSI-Not a Secondary Insurance [id number]-a820-591u-i161-8f4t1 9zm15ds xfn43m60-g104-018h-r730-0t8p36lj91au ANSI-Medicaid [id number] ANSI-Medicare Part B [id number] ANSI-Not a Secondary Insurance [id number]-g2w1-04wcd 0hqa49s [id number]-f0w9-96rbb5shx32e ANSI-Medicare Part B [id number] ANSI-Medicare Part B [id number] ANSI-Medicaid [id number] ANSI-Medicaid [id number] ANSI-Not a Secondary Insurance [id number]-enwb-7d23-22ut-7atjj [id number] [id number]-qpbd-2r83-38wh-5jttd64986zr ANSI-Not a Secondary Insurance [id number]-12h7-8b76-4926-f9ea9 o1enur8 af9bwe1n-08g9-0f92-6250-p2pw5w2tbkk3 ANSI-Medicaid [id number] ANSI-Medicaid [id number] ANSI-Medicare Part B [id number] ANSI-Medicare Part B [id number] ANSI-Not a Secondary Insurance [id number]-9ag2-axdd-939te [id number]-1ej2-guxk-[id number] SELF PAY [id number] S [id number] [facility] [id number] S [id number] [facility] DesignHub [facility] [id number] S MAB P49KB [employer] MEDICAID [id number] S [id number] ANSI-Not a Secondary Insurance [id number] [id number] ANSI-Medicaid [id number] ANSI-Medicaid [id number] ANSI-Medicare Part B [id number] ANSI-Medicare Part B [id number] ANSI-Not a Secondary Insurance [id number]-8nu84 s406hfo [id number]-2tk44w890yir ANSI-Medicare Part B [id number] ANSI-Not a Secondary Insurance 35kly491-5r8f-935s-5n4v-368us [id number] 80csz712-7k3s-042n-4x2x-138smb3b3649 ANSI-Not a Secondary Insurance [id number]-ly97-396o-87dz-q6413 mdm0x42 [id number]-px02-645s-54nu-a4709wcm4a84 ANSI-Medicaid [id number] ANSI-Medicare Part B [id number] ANSI-Medicaid [id number] ANSI-Medicare Part B [id number] ANSI-Medicaid [id number] ANSI-Medicare Part B [id number] ANSI-Not a Secondary Insurance [id number]-o067-6eu3m257-7jy4-07o9-zt17z [id number]-z963-2rh4z032-5ty4-06d1-zm21qbp10195 ANSI-Medicaid [id number] ANSI-Not a Secondary Insurance [id number] ojx5fno [id number]19duz8qog ANSI-Medicare Part B [id number]-[id number] ANSI-Medicare Part B [id number] ANSI-Medicaid [id number] ANSI-Medicaid [id number] ANSI-Not a Secondary Insurance [id number] 607h0nb f29s8o75-9f38-87g1-26a9-4aw29158r6zp ANSI-Not a Secondary Insurance [id number]-7o3y-ua2c-3705o q8yqmo3 c65q5908-7q1l-4e9a-aj4k-3611gy8yufd5 ANSI-Not a Secondary Insurance [id number]-5l2b-6w64-q3cvg 571wne8 0u8897c4-896z-9z1v-8h80-q6bqn249mci4 ANSI-Medicaid [id number] ANSI-Medicaid [id number] ANSI-Not a Secondary Insurance [id number]-5nm9-1g78-5710-29026 [id number] 3vzi804v-[id number] ANSI-Medicare Part B [id number] ANSI-Medicare Part B [id number] ANSI-Medicaid [id number] ANSI-Medicaid [id number] ANSI-Medicare Part B [id number] ANSI-Not a Secondary Insurance [id number]-70pa-7wdei [id number] t26yb0l1-23a1-3b2m-97tn-4jlku7h3yb62 ANSI-Medicare Part B [id number] ANSI-Not a Secondary Insurance 97p15w5l-l1v4-009e-0t64-2a18t 85z48dx 58e85w8i-c0e2-923p-1y75-0r80o29w35sp ANSI-Medicare Part B [id number] ANSI-Not a Secondary Insurance 2wef1935-pq61-5934-a3o7-9ur02 x104y8h 4wgd6874-fm79-7740-o7g2-2tk25y917k5w ANSI-Medicaid [id number] ANSI-Medicaid [id number] ANSI-Medicare Part B [id number]-[id number] ANSI-Not a Secondary Insurance tm5c8g18-t71u-670o-k403-8237x [id number] nj5y2c39-e74y-530c-i364-8757l18o8023 ANSI-Medicaid [id number] ANSI-Medicaid [id number] ANSI-Not a Secondary Insurance [id number]-4ma5-2832-77168 qkve2r7 [id number]-3wl2-4109-73764ffvm8d3 ANSI-Medicare Part B [id number] ANSI-Not a Secondary Insurance 69ul5t65-pw64-3444-t41x-on94c [id number] 26gw7h92-hh69-5805-k37t-vm64j2qq0184 ANSI-Medicare Part B [id number]-[id number]-[id number] ANSI-Medicaid [id number] ANSI-Medicare Part B [id number] ANSI-Not a Secondary Insurance [id number]-fs8q-my469 [id number]-m848-946p-nj4g-[id number] ANSI-Not a Secondary Insurance [id number]-56z0-3ld2-o7z66 8nw505u w55d54p2-89jx-36r0-7ku0-d1c020pb200u ANSI-Medicaid [id number]-3xf2-6g2s-[id number] ANSI-Medicare Part B [id number] ANSI-Medicaid [id number] ANSI-Medicare Part B [id number]-[id number] ANSI-Medicare Part B [id number] ANSI-Medicaid [id number]-40le-41e7-6pv1-[id number] ANSI-Not a Secondary Insurance 59hm279h-1abb-3027-40st-j62nu [id number] 81nw104i-7gnm-4756-66ay-q02kn4s60l88 ANSI-Not a Secondary Insurance y75d2ub6-a32d-3249-l228-6nh87 o4t4615 i79d7sd4-j66n-9901-r053-1jr76n2w9355 ANSI-Not a Secondary Insurance [id number]-77pd-91w1-419pu [id number]-01uo-11f1-935lkk960829 ANSI-Medicaid [id number] ANSI-Not a Secondary Insurance ppm40gs9-wtab-11lh-souv-0w02e 90wq6v6 xbb80oa8-rknm-84sl-swvi-4c19c49ok1x4 ANSI-Medicaid [id number] ANSI-Medicare Part B [id number] ANSI-Medicare Part B [id number] ANSI-Medicaid [id number] ANSI-Medicaid [id number]-7dza-[id number] ANSI-Not a Secondary Insurance [id number]-p91e-z6298 8jr8fra [id number]-v06l-f96883dr6qrb ANSI-Not a Secondary Insurance 01z5u21b-64a4-8b6j-2wft-ya9p7 n25o38z 56b5g16k-04m6-3w0s-3twu-qo6r9l86p13c ANSI-Medicare Part B [id number] ANSI-Medicaid [id number] ANSI-Not a Secondary Insurance [id number]-wh07-2oj6-2z47-35n47 1x85if5 ja2v59p0-vc50-7ap6-2f20-46c824b67yi7 ANSI-Medicare Part B [id number] ANSI-Not a Secondary Insurance [id number]-395c-4t03-z268-4324m 8oyy4wj 6011e47r-896v-2b43-p431-2533n6ayi7or ANSI-Medicaid [id number] ANSI-Medicare Part B [id number] ANSI-Not a Secondary Insurance [id number]-sc48-4ym29 [id number]-[id number] ANSI-Medicaid [id number] ANSI-Not a Secondary Insurance u30ft0x7-113w-52s6-x91b-8rey6 83z58u2 a76ox8h1-347z-77u7-t83l-7ttv023j13i0 ANSI-Medicaid [id number]-8kk2-91oq-[id number] ANSI-Medicare Part B [id number] ANSI-Not a Secondary Insurance [id number]-lkq8-3e36-xj76-32i46 [id number] [id number]-udx5-7h07-[id number] ANSI-Medicaid [id number] ANSI-Medicaid [id number] ANSI-Not a Secondary Insurance [id number]-h90z-7315-45i6-5z7w0 [id number]-b60d-[id number] MEDICARE [id number] SP [id number] A [facility] MEDICARE DIVISION [id number] S [id number] MEDICARE - [place] [id number] S [id number] UNHC COMMUNITY PLAN MCDO [id number] SP [id number] SELF PAY ONLY - SP1 UNAVAILABLE SP UNAVAILABLE UN COMMUNITY PLAN MCDO [id number] SP [id number] [facility] COMMUNITY PLAN MCDO [id number] SP [id number] [facility] O [id number] S [id number] [facility] COMM[facility]ITY PL[facility] [id number] SP [id number] STATE INSURANCE FUND O [id number] S [id number] STATE INSURANCE FUND [id number] SP [id number] [facility] [id number] S [id number] OTHER WORKERS COMPENSATION [id number] SP [id number] SELF PAY SP UNAVAILABLE S UNAVAILA BLE [facility] [id number] S [id number] STATE INSURANCE FUND P CC [id number] S CC [id number] STATE INSURANCE FUND WC [id number] S [id number] BCBS EXCELLUS BC [id number] SPO KHU [id number] [employer]NA MEDICARE [id number] SP [id number] [facility] MEDICAID [id number] SP [id number] Y [employer] MEDICARE [id number] SP [id number] EMEDNY [id number] SP [id number] [facility] [facility] [id number] S MEB [id number] MEDICAID [id number] SP [id number] Problems, Conditions, and Diagnoses Code Display Name Description Problem Type Effective Dates Data Source(s) R92.8 Other abnormal and inconclusive findings on diagnostic imaging of breast Other abnormal and inconclusive findings on diagnostic imaging of breast Diagnosis 07/20/2020 11:32:20 AM [facility] Z12.31 Encounter for screening mammogram for ma lignant neoplasm of breast ENCNTR SCREEN MAMMOGRAM FOR MALIGNANT NE Diagnosis 07/02/2020 09:00:00 AM [facility] R10.31 Right lower quadrant pain RIGHT LOWER QUADRANT PAIN Di agnosis 07/02/2020 09:00:00 AM [facility] N64.4 Mastodynia MASTODYNIA Diagnosis 07/02/2020 09:00:00 AM [facility] R93.[id number] scan, chest Problem 11/17/2020 12:00:00 AM EDT eCW1 ([facility]) R92.8 [id number] Abnormal mammogram of right breast Proble m 07/02/2020 12:00:00 AM [place] [address] ([facility]) Surgeries/Procedures Procedure Description Date Indications Data Source(s) OFFICE OUTPATIENT VISIT 15 MINUTES 02/23/2021 12:00:00 AM EDT [facility] ([facility]) Spirometry 12/16/2020 12:00:00 AM EDT M EDENT ([facility]) OFFICE OUTPATIENT NEW 45 MINUTES 12/16/2020 12:00:00 A [facility] OFFICE OUTPATIENT VISIT 15 MINUTES 11/11/2020 12:00:00 AM EDT [facility] ([facility]) Results ID Date Data Source [id number] 12/16/2020 10:07:00 AM EDT [facility] ([facility]) Name Value Range Interpretation Code Description Data Buffy rce(s) Supporting Document(s) PDFReport Laboratory test result [facility] ([facility]) FVC-Pre 2.92 L [facility] ([facility]) FVC-Pred 3.34 L [facility] ([facility]) FVC-%Pred-Pre 87 L [facility] ([facility]) FVC-LLN 2.63 L [facility] ([facility]) Fev1-Pre 2.14 L [facility] ([facility]) Fev1-Pred 2.57 L [facility] ([facility]) Fev1-%Pred-Pre 83 L [facility] ([facility], ) Fev1-LLN 1.96 L [facility] ([facility], ) Fev6-Pre 2.80 L [facility] ([facility]) Fev6-Pred 3.22 L [facility] ([facility]) Fev6-%Pred-Pre 86 L [facility] ([facility], ) Ndu0dwy-Kqeq 77 % [facility] ([facility]) Fev6-LLN 2.52 L [facility] ([facility]) Rvx2efk-Ztd 73 % [facility] ([facility]) Txn8lhw-%Pred-Pre 94 % [facility] ([facility]) Fvh4oco-Tisu 96 % [facility] ([facility]) Sux0tfn-RPX 68 % [facility] ([facility]) FEFMax-Pred 6.28 L/E/sec [facility] ([facility]) Pld4gir-Sax 96 % [facility] ([facility]) Shc0vtl-%Pred-Pre 99 % [facility] ([facility]) FEFMax-%Pred-Pre 86 L/E/sec [facility] ([facility]) FEFMax-Pre 5.40 L/E/sec [facility] ([facility]) Gvq0354-Acy 1.48 L/E/sec [facility] ([facility], ) Xgr3696-Jnku 2.28 L/E/sec [facility] ([facility]) FEFMax-LLN 4.51 L/E/sec [facility] ([facility]) Bft4512-%Pred-Pre 64 L/E/sec [facility] ([facility]) Byg1611-GDH 1.00 L/E/sec [facility] ([facility]) Vbe0lmq4-Woi 77 % [facility] ([facility]) ExpTime-Pre 8.54 sec [facility] ([facility], ) Zur7yaq1-Ygyj 80 % [facility] ([facility], ) Vbc3ctr4-%Pred-Pre 95 % [facility] ([facility]) Omv5yhc7-CJX 71 % [facility] ([facility]) ID Date Data Source [id number] 07/22/2020 01:27:44 PM [facility] MAMMO DIGITAL DIAGNOSTIC RIGHT [id number] RESULTInterpreted by:SASHA Trivedi DIGITAL MAMMOGRAM WITH COMPUTER-AIDED DETECTION AND TARGETED RIGHT BREAST ULTRASOUNDHISTORY: The patient presented for stereotactic biopsy of "a focal density in the posterior third of the right breast" seen at an outside facility.COMPARISON: Outside mammogram 07/02/2020TECHNIQUE: Craniocaudal and mediolateral digital mammograms were obtained with tomosynthesis. Computer-aided detection was utilized. Spot CC and rolled CC images were obtained.FINDINGS:The breast is heterogeneously dense, which may obscure small masses (category C).On mammogram, an asymmetry in the retroareolar plane on CC view improves with additional imaging.On targeted right breast ultrasound the central breast, no suspicious abnormality is identified.IMPRESSION: 1. No suspicious lesion was identified and no biopsy was performed.2. Follow up right mammogram in 6 months is recommended to evaluate for stability. BI-RADS 3 - PROBABLY BENIGN - SHORT INTERVAL FOLLOWUP SUGGESTED.This document has been electronically signed by Sebastián Bardales MD on 07/22/2020 1:25 PM Name Value Range Interpretation Code Description Data Buffy rce(s) Supporting Document(s) ID Date Data Source [id number] 07/22/2020 01:27:44 PM [facility] US BREAST INCLUDING AXILLA LIMITED RIGHT [id number] RESULTInterpreted by:SASHA Trivedi DIGITAL MAMMOGRAM WITH COMPUTER-AIDED DETECTION AND TARGETED RIGHT BREAST ULTRASOUNDHISTORY: The patient presented for stereotactic biopsy of "a focal density in the posterior third of the right breast" seen at an outside facility.COMPARISON: Outside mammogram 07/02/2020TECHNIQUE: Craniocaudal and m ediolateral digital mammograms were obtained with tomosynthesis. Computer-aided detection was utilized. Spot CC and rolled CC images were obtained.FINDINGS:The breast is heterogeneously dense, which may obscure small masses (category C).On mammogram, an asymmetry in the retroareolar plane on CC view improves with additional imaging.On targeted right breast ultrasound the central breast, no suspicious abnormality is identified.IMPRESSION: 1. No suspicious lesion was identified and no biopsy was performed.2. Follow up right mammogram in 6 months is recommended to evaluate for stability. BI-RADS 3 - PROBABLY BENIGN - SHORT INTERVAL FOLLOWUP SUGGESTED.This document has been electronically signed by Sebastián Bardales MD on 07/22/2020 1:25 PM Name Value Range Interpretation Code Description Data Buffy rce(s) Supporting Document(s) ID Date Data Source [id number] 07/20/2020 12:23:20 PM [facility] Name Value Range Interpretation Code Description Data Buffy rce(s) Supporting Document(s) Progress Note [facility] [id number] m [file] [id number]== ID Date Data Source [id number] 07/02/2020 11:02:00 AM EST [facility] DATE OF EXAMINATION: 07/02/2020 9:27 EST M AMMO SCREEN BILAT WITH CAD HISTORY: Screening Based on the personal and family history information your patient supplied atthe time of imaging, her lifetime risk of breast cancer estimated date by theTyrer-Cuzick model is 8%. If anything changes in the personal and/or familyhistory this percentage could increase or decrease. Currently, NCCN and ACSrecommended adjunctive breast MRI screening starting at age 30 for women with a> 20-25% lifetime risk of developing breast cancer. Comparison is made to prior study dated none. 2-D bilateral digital mammogram in the CC and MLO planes were performed withsupplemental 3-D tomosynthesis of both breasts. The images were analyzed through the latest version of the [facility] computer aided[facility]osis system. The patient states that her last clinical breast examination was 2 weeks ago. Craniocaudal and oblique lateral views of the breasts were obtained. There arescattered areas of fibroglandular density. There is a focal density in theposterior third of the right breast on mass on nima synthesis sequences. Thisdoes not reveal correlating cyst on sonography and is therefore likely to besolid in nature warranting stereotactic biopsy. IMPRESSION: Stereotactic biopsy recommended. BIRAD 4 - Suspicious Abnormality - Biopsy should be considered 10-15% of cancers are not identified by mammography. This usually occurs whenthe mass is of the same radiographic density as the surrounding breast tissue,emphasizing the importance of breast self examination (BSE) and physicalexamination. A normal mammogram should not delay biopsy if a suspicious mass orabnormal findings are present upon physical examination. Electronically signed in PS360 by: Neena Heard M.D. 07/02/2020 10:57 EST Name Value Range Interpretation Code Description Data Buffy rce(s) Supporting Document(s) ID Date Data Source [id number] 07/02/2020 10:24:00 AM EST [facility] DATE OF EXAMINATION: 07/02/2020 9:06 EST B REAST UNILATERAL COMPLETE ULTRASOUND LEFT BREAST HISTORY: Evaluate for mass Real-time ultrasound imaging was performed utilizing B-mode/harrington scale and colorDoppler imaging where applicable. Ultrasound evaluation of the breast was performed, revealing no solid or cysticmasses. No large calcifications can be identified. Normal-appearing glandulartissue is noted. IMPRESSION: Normal breast ultrasound. It should be emphasized that this examination does not entirely exclude subtlebreast pathology. BIRAD CATEGORY 1 - NEGATIVE, ROUTINE YEARLY FOLLOW-UP. Electronically signed in PS360 by: Neena Heard M.D. 07/02/2020 10:18 EST Name Value Range Interpretation Code Description Data Buffy rce(s) Supporting Document(s) ID Date Data Source [id number] 07/02/2020 10:24:00 AM EST [facility] DATE OF EXAMINATION: 07/02/2020 9:06 EST B REAST UNILATERAL COMPLETE ULTRASOUND RIGHT BREAST HISTORY: Evaluate for mass Real-time ultrasound imaging was performed utilizing B-mode/harrington scale and colorDoppler imaging where applicable. Ultrasound evaluation of the breast was performed, revealing no solid or cysticmasses. No large calcifications can be identified. Normal-appearing glandulartissue is noted. IMPRESSION: Normal breast ultrasound. It should be emphasized that this examination does not entirely exclude subtlebreast pathology. BIRAD CATEGORY 1 - NEGATIVE, ROUTINE YEARLY FOLLOW-UP. Electronically signed in PS360 by: Neena Heard M.D. 07/02/2020 10:18 EST Name Value Range Interpretation Code Description Data Buffy rce(s) Supporting Document(s) ID Date Data Source [id number] 07/02/2020 10:04:00 AM EST [facility] DATE OF EXAMINATION: 07/02/2020 9:06 EST A BD/PEL W WO IV CONTRAST HISTORY: Abdominal pain. Right lower quadrant pain. TECHNIQUE: This CT exam was performed using the following dose reduction techniques:automated exposure control, adjustment of mA and/or kV according to thepatient's size, and use of iterative reconstruction technique. Standard contiguous axial spiral imaging was obtained from the dome of thediaphragms through the symphysis pubis with oral contrast and without followedwith intravenous contrast administration and with coronal reformatting. FINDINGS: Lower thorax: Unremarkable ABDOMEN: Liver: UnremarkableGallbladder and bile ducts: UnremarkablePancreas: UnremarkableSpleen: UnremarkableAdrenals: UnremarkableKidneys and ureters: UnremarkableStomach and bowel: Moderate amount of stool throughout the colon. Moderatesigmoid diverticulosis without inflammatory changesAppendix: No appendicitis. Normal in appearance PELVIS: Bladder: Unremarkable unopacifiedReproductive: Unremarkable No free fluid or lymphadenopathy IMPRESSION: Moderate amount of stool throughout the colon. There is moderate sigmoiddiverticulosis without inflammatory changes. Colonic mucosa cannot be accurately evaluated. If the patient has not hadscreening colonoscopy one would be recommended. Electronically signed in PS360 by: Neena Heard M.D. 07/02/2020 9:59 EST Name Value Range Interpretation Code Description Data Buffy rce(s) Supporting Document(s) ID Date Data Source PAP REQUEST FOR SERVICE 06/11/2020 12:00:00 AM EST [email or web address] ([facility], [facility]) Name Value Range Interpretation Code Description Data Buffy rce(s) Supporting Document(s) eCW1 ([facility]) ID Date Data Source VITAMIN D 25-HYDROXY 06/11/2020 12:00:00 AM EST eCW1 ([facility]) Name Value Range Interpretation Code Description Data Buffy rce(s) Supporting Document(s) 35.1 30.0-100.0 TOTAL 25(OH) VITAMIN D eC W1 ([facility]) ID Date Data Source LIPID PANEL (CARDIAC RISK) 06/11/2020 12:00:00 AM EST eCW1 ( [facility]) Name Value Range Interpretation Code Description Data Buffy rce(s) Supporting Document(s) Cholesterol in LDL [Mass/volume] in Serum or Plasma by calculation 96 <100 LDL CHOLESTEROL eCW1 ([facility]) Cholesterol in HDL [Moles/volume] in Serum or Plasma 37 >40 HDL CHOLESTEROL eCW1 ([facility]) Cholesterol [Moles/volume] in Serum or Plasma 179 <200 CHOLESTEROL LEVEL eCW1 ([facility]) Triglyceride [Mass/volume] in Serum or Plasma by calculation 231 <150 TRIGLYCERIDES LEVEL eCW1 ([facility]) 4.837 <5 CHOLESTEROL RISK RATIO eCW1 ([facility]) 142 NON-HDL-C eCW1 ([facility]) ID Date Data Source FREE T4 & TSH PANEL 06/11/2020 12:00:00 AM EST eCW1 ([facility]) Name Value Range Interpretation Code Description Data Buffy rce(s) Supporting Document(s) 1.470 0.358-3.740 THYROID STIMULATING HORM ONE eCW1 ([facility]) 1.30 0.76-1.46 FREE T4 eCW1 ([facility]) ID Date Data Source Comprehensive Metabolic Profile (CMP) 06/11/2020 12:00:00 AM EST eCW1 ([facility]) Name Value Range Interpretation Code Description Data Buffy rce(s) Supporting Document(s) 5 7-18 BLOOD UREA NITROGEN eCW1 ([facility]) > 60.0 >45 GLOMERULAR FILTRATION RATE eCW 1 ([facility]) 91 70-100 GLUCOSE, FASTING eCW1 ([facility]) 0.93 0.55-1.30 CREATININE FOR GFR eCW1 ([facility]) 4.7 3.5-5.1 POTASSIUM SERUM eCW1 ([facility]) 104 98-107 CHLORIDE LEVEL eCW1 ([facility]) 139 136-145 SODIUM LEVEL eCW1 ([facility]) 34 21-32 CARBON DIOXIDE LEVEL eCW1 ([facility]) 10 7-37 AST/SGOT eCW1 ([facility]) 9.5 8.8-10.2 CALCIUM LEVEL eCW1 ([facility]) 77 45-117 ALKALINE PHOSPHATASE eCW1 ([facility]) 15 12-78 ALT/SGPT eCW1 ([facility]) 1.1 1.2-2.2 ALBUMIN/GLOBULIN RATIO eCW1 ([facility]) 3.8 3.2-5.2 ALBUMIN eCW1 ([facility]) 7.2 6.4-8.2 TOTAL PROTEIN eCW1 ([facility]) 0.3 0.2-1.0 BILIRUBIN,TOTAL eCW1 ([facility]) ID Date Data Source CBC with Differential 06/11/2020 12:00:00 AM EST eCW1 ([facility]) Name Value Range Interpretation Code Description Data Buffy rce(s) Supporting Document(s) 4.42 4.00-5.40 RED BLOOD COUNT eCW1 ([facility]) 4.8 4.0-10.0 WHITE BLOOD COUNT eCW1 ([facility]) 31.9 32.0-36.5 MEAN CORPUSCULAR HGB CONC eCW1 ([facility]) 13.3 12.0-15.5 HEMOGLOBIN eCW1 ([facility]) 94.3 80.0-96.0 MEAN CORPUSCULAR VOLUME e CW1 ([facility]) 30.1 27.0-33.0 MEAN CORPUSCULAR HEMOGLOB IN eCW1 ([facility]) 41.7 36.0-47.0 HEMATOCRIT eCW1 ([facility]) 56.3 36.0-66.0 NEUTROPHILS % eCW1 ([facility]) 262 150-450 PLATELET COUNT, AUTOMATED eCW1 ([facility]) 33.2 24.0-44.0 LYMPH % eCW1 ([facility]) 12.6 11.5-14.5 RED CELL DISTRIBUTION WID TH eCW1 ([facility]) 2.7 1.5-8.5 NEUTROPHILS # eCW1 ([facility]) 1.9 0.0-3.0 EOS % eCW1 ([facility]) 0.8 0.0-1.0 BASO % eCW1 ([facility]) 7.6 0.0-5.0 MONO % eCW1 ([facility]) 0.4 0.0-0.8 MONO # eCW1 ([facility]) 0.0 0.0-0.2 BASO # eCW1 ([facility]) 1.6 1.5-5.0 LYMPH # eCW1 ([facility]) 0.1 0.0-0.5 EOS # eCW1 ([facility]) ID Date Data Source WOUND CULTURE 06/04/2020 12:00:00 AM EST eCW1 ([facility]) Name Value Range Interpretation Code Description Data Buffy rce(s) Supporting Document(s) FULL REPORT IN LAB NOTES (eCW and [facility]). WOUND CULTURE eCW1 ([facility]) Procedure Social History Code Duration Value Status Description Data Source(s ) Smoking 10/05/2020 12:00:00 AM EDT Current Smoker completed Curre nt Smoker eCW1 ([facility]) Smoking 10/05/2020 12:00:00 AM EDT Current Smoker completed Curre nt Smoker eCW1 ([facility]) Smoking 10/05/2020 12:00:00 AM EDT Current Smoker completed Curre nt Smoker eCW1 ([facility]) Smoking 10/05/2020 12:00:00 AM EDT Current Smoker completed Curre nt Smoker eCW1 ([facility]) Smoking 06/11/2020 12:00:00 AM EST Current Smoker completed Curre nt Smoker eCW1 ([facility]) Smoking 06/11/2020 12:00:00 AM EST Current Smoker completed Curre nt Smoker eCW1 ([facility]) Smoking 06/11/2020 12:00:00 AM EST Current Smoker completed Curre nt Smoker eCW1 ([facility]) Smoking 06/11/2020 12:00:00 AM EST Current Smoker completed Curre nt Smoker eCW1 ([facility]) Smoking 06/11/2020 12:00:00 AM EST Current Smoker completed Curre nt Smoker eCW1 ([facility]) Smoking 06/11/2020 12:00:00 AM EST Current Smoker completed Curre nt Smoker eCW1 ([facility]) Smoking 06/11/2020 12:00:00 AM EST Current Smoker completed Curre nt Smoker eCW1 ([facility]) Smoking 06/11/2020 12:00:00 AM EST Current Smoker completed Curre nt Smoker eCW1 ([facility]) Smoking 06/11/2020 12:00:00 AM EST Current Smoker completed Curre nt Smoker eCW1 ([facility]) Smoking 06/11/2020 12:00:00 AM EST Current Smoker completed Curre nt Smoker eCW1 ([facility]) Smoking 06/04/2020 12:00:00 AM EST Current Smoker completed Curre nt Smoker eCW1 ([facility]) Vital Signs ID Date Data Source UNK Name Value Range Interpretation Code Description Data Source(s) Systolic blood pressure 128 mm[Hg] 128 mm[Hg] [facility] Diastolic blood pressure 82 mm[Hg] 82 mm[Hg] [facility] ([facility]) Body mass index (BMI) [Ratio] 22.5 kg/m2 22.5 k g/m2 [facility] ([facility]) Body weight 61.236 kg 61.236 kg [facility] ([facility]) Body surface area Derived from formula 1.67 m2 1.67 m2 [facility] ([facility]) Heart rate 73 /min 73 /min [facility] ([facility]) Oxygen saturation in Arterial blood by Pulse oximetry 97 % 97 % [facility] ([facility]) Body height 65 [in_i] 65 [in_i] [facility] ([facility]) 5'5" Body weight 135.00 [lb_av] 135.00 [lb_av] MEDEN T ([facility]) [place] body weight 125 [lb_av] 125 [lb_av] MEDEN T ([facility]) Systolic blood pressure 120 mm[Hg] 120 mm[Hg] M EDENT ([facility]) Body mass index (BMI) [Ratio] 21.8 kg/m2 21.8 k g/m2 [facility] ([facility]) [place] body weight 125 [lb_av] 125 [lb_av] MEDEN T ([facility]) Diastolic blood pressure 82 mm[Hg] 82 mm[Hg] [facility] ([facility]) Heart rate 72 /min 72 /min [facility] ([facility]) Oxygen saturation in Arterial blood by Pulse oximetry 97 % 97 % [facility] ([facility]) Body height 65 [in_i] 65 [in_i] [facility] ([facility]) 5'5" Body weight 131.00 [lb_av] 131.00 [lb_av] MEDEN T ([facility]) Body weight 59.422 kg 59.422 kg [facility] ([facility]) Body surface area Derived from formula 1.65 m2 1.65 m2 [facility] ([facility]) Oxygen saturation in Arterial blood by Pulse oximetry 97 % 97 % [facility] ([facility]) Body height 65 [in_i] 65 [in_i] [facility] ([facility]) 5'5" Body weight 131.00 [lb_av] 131.00 [lb_av] MEDEN T ([facility]) Body mass index (BMI) [Ratio] 21.8 kg/m2 21.8 k g/m2 [facility] ([facility]) [place] body weight 125 [lb_av] 125 [lb_av] MEDEN T ([facility]) Body weight 59.422 kg 59.422 kg [facility] ([facility]) Body surface area Derived from formula 1.65 m2 1.65 m2 [facility] ([facility]) Systolic blood pressure 114 mm[Hg] 114 mm[Hg] M EDENT ([facility]) Diastolic blood pressure 60 mm[Hg] 60 mm[Hg] [facility] ([facility]) Body height 65 [in_i] 65 [in_i] [facility] ([facility]) 5'5" Body weight 130.00 [lb_av] 130.00 [lb_av] MEDEN T ([facility]) Body mass index (BMI) [Ratio] 21.6 kg/m2 21.6 k g/m2 [facility] ([facility]) [place] body weight 125 [lb_av] 125 [lb_av] MEDEN T ([facility]) Body weight 58.968 kg 58.968 kg [facility] ([facility]) Body surface area Derived from formula 1.65 m2 1.65 m2 [facility] ([facility]) Body height 65 [in_i] 65 [in_i] [facility]ENT ([facility]) 5'5" [place] body weight 125 [lb_av] 125 [lb_av] MEDEN T ([facility]) Body weight [lb_av] eCW1 ([facility]) Body height 65 [in_i] 65 [in_i] eCW1 ([facility]) Body mass index (BMI) [Ratio] 21.63 kg/m2 21.63 kg/m2 W1 ([facility]) Heart rate 87 /min 87 /min eCW1 ([facility]) Respiratory rate 18 /min 18 /min eCW1 ([facility]) Body temperature 98.8 [degF] 98.8 [degF] eCW1 ( [facility]) Systolic blood pressure 123 mm[Hg] 123 mm[Hg] e CW1 ([facility]) Diastolic blood pressure 87 mm[Hg] 87 mm[Hg] eCW1 ([facility]) Body weight [lb_av] eCW1 ([facility]) Body height 65 [in_i] 65 [in_i] eCW1 ([facility]) Body mass index (BMI) [Ratio] 21.63 kg/m2 21.63 kg/m2 eCW1 ([facility]) Heart rate 74 /min 74 /min eCW1 ([facility]) Respiratory rate 18 /min 18 /min eCW1 ([facility]) Body temperature 97.8 [degF] 97.8 [degF] eCW1 ( [facility]) Systolic blood pressure 129 mm[Hg] 129 mm[Hg] e CW1 ([facility]) Diastolic blood pressure 81 mm[Hg] 81 mm[Hg] eCW1 ([facility]) Body weight 130.8 [lb_av] 130.8 [lb_av] eCW1 ([facility]) Body height 65 [in_i] 65 [in_i] eCW1 ([facility]) Body mass index (BMI) [Ratio] 21.76 kg/m2 21.76 kg/m2 eCW1 ([facility]) Heart rate 69 /min 69 /min eCW1 ([facility]) Respiratory rate 20 /min 20 /min eCW1 ([facility]) Body temperature 97.4 [degF] 97.4 [degF] eCW1 ( [facility]) Systolic blood pressure 118 mm[Hg] 118 mm[Hg] e CW1 ([facility]) Diastolic blood pressure 76 mm[Hg] 76 mm[Hg] eCW1 ([facility]) ID Date Data Source [id number] 07/22/2020 01:27:44 PM [facility] Name Value Range Interpretation Code Description Data Source(s) WEIGHT RECORDED 130 lb 130 lb [facility] Body height Measured 65 in 65 in [facility] ID Date Data Source [id number] 07/20/2020 12:23:20 PM EST [facility] Name Value Range Interpretation Code Description Data Source(s) WEIGHT RECORDED 130 lb 130 lb [facility] Body height Measured 65 in 65 in [facility] Patient Treatment Plan of Care Planned Activity Planned Date Details Description Data Source (s) Vitamin D3 125 MCG (5000 UT) 10/05/2020 12:00:00 AM EDT eCW1 ([facility]) Vitamin D3 125 MCG (5000 UT) 10/05/2020 12:00:00 AM EDT eCW1 ([facility]) Vitamin D3 125 MCG (5000 UT) 10/05/2020 12:00:00 AM EDT eCW1 ([facility]) Vitamin D3 125 MCG (5000 UT) 10/05/2020 12:00:00 AM EDT eCW1 ([facility]) Cephalexin 500 MG Oral Tablet 06/08/2020 12:00:00 AM EST eCW1 ([facility])
[2021-04-19] MEDS ORDERED: LIDOCAINE 2% 100MG/5ML SDV (FOR ANES.) As Ordered ONE (11:09)
[2021-04-19] MEDS ORDERED: propofoL 200 MG/20 ML VIAL As Ordered ONE ×2 (11:12→13:12)
--- NOTE | 2021-04-19 13:40 | ROOR ---
Patient Name: Diane Lewis Procedure Date: 04/19/2021 12:05 PM Date of : 1955 Age: 65 Room: [facility] Gender: Female Note Status: Finalized Procedure: Colonoscopy Indications: Screening for colorectal malignant neoplasm Providers: Woody Dacosta MD Referring MD: YAZ Rasheed [id number] Requesting Provider: Medicines: Monitored Anesthesia Care Complications: No immediate complications. Procedure: Pre-Anesthesia Assessment: - Prior to the procedure, a History and Physical was performed, and patient medications and allergies were reviewed. The patient is competent. The risks and benefits of the procedure and the sedation options and risks were discussed with the patient. All questions were answered and informed consent was obtained. Patient identification and proposed procedure were verified by the physician, the nurse and the anesthesiologist in the procedure room. Mental Status Examination: alert and oriented. Airway Examination: normal oropharyngeal airway and neck mobility. Respiratory Examination: clear to auscultation. CV Examination: normal. Prophylactic Antibiotics: The patient does not require prophylactic antibiotics. Prior Anticoagulants: The patient has taken no previous anticoagulant or antiplatelet agents. ASA Grade Assessment: III - A patient with severe systemic disease. After reviewing the risks and benefits, the patient was deemed in satisfactory condition to undergo the procedure. The anesthesia plan was to use monitored anesthesia care (MAC). Immediately prior to administration of medications, the patient was re-assessed for adequacy to receive sedatives. The heart rate, respiratory rate, oxygen saturations, blood pressure, adequacy of pulmonary ventilation, and response to care were monitored throughout the procedure. The physical status of the patient was re-assessed after the procedure. The Colonoscope was introduced through the anus and advanced to the cecum, identified by appendiceal orifice and ileocecal valve. The Colonoscope was introduced through the anus and advanced to the cecum, identified by appendiceal orifice and ileocecal valve. The Colonoscope was introduced through the anus and advanced to the cecum, identified by appendiceal orifice and ileocecal valve. The colonoscopy was performed with moderate difficulty due to multiple diverticula in the colon, bowel stenosis and a tortuous colon. Successful completion of the procedure was aided by withdrawing the scope and replacing with the enteroscope and withdrawing the scope and replacing with the 'babyscope'. The patient tolerated the procedure poorly due to the patient's inability to tolerate conscious sedation. The quality of the bowel preparation was good. The terminal ileum, ileocecal valve, appendiceal orifice, and rectum were photographed. Scope insertion time was 20 minutes. Scope withdrawal time was 8 minutes. The total duration of the procedure was 30 minutes. Findings: The perianal and digital rectal examinations were normal. The terminal ileum appeared normal. Multiple small and large-mouthed diverticula were found in the sigmoid colon. There was narrowing of the colon in association with the diverticular opening. There was evidence of diverticular spasm. Erythema was seen in association with the diverticular opening. Trena-diverticular erythema was seen. Purulent discharge was seen in association with the diverticular opening, consistent with diverticulitis. There was no evidence of diverticular bleeding. A 15 mm polypoid lesion was found in the proximal sigmoid colon. The lesion was sessile. No bleeding was present. Mucosa was biopsied with a cold forceps for histology. One specimen bottle was sent to pathology. Non-bleeding external and internal hemorrhoids were found during retroflexion. Impression: - The examined portion of the ileum was normal. - Severe diverticulosis in the sigmoid colon. There was narrowing of the colon in association with the diverticular opening. There was evidence of diverticular spasm. Erythema was seen in association with the diverticular opening. Trena-diverticular erythema was seen. Purulent discharge was seen in association with the diverticular opening, indicative of diverticulitis. There was no evidence of diverticular bleeding. - Likely malignant polypoid lesion in the proximal sigmoid colon. Biopsied. - Non-bleeding external and internal hemorrhoids. Recommendation: - Patient has a contact number available for emergencies. The signs and symptoms of potential delayed complications were discussed with the patient. Return to normal activities tomorrow. Written discharge instructions were provided to the patient. - Clear liquid diet for 1 day, then advance as tolerated to mechanical soft diet and high fiber diet. - Continue present medications. - Miralax 1 capful (17 grams) in 8 ounces of water PO BID for atleast 7 days and then adjust dose to have one to two soft bowel movements daily. - Await pathology results. - Cipro (ciprofloxacin) 500 mg PO BID for 3 weeks. - Flagyl (metronidazole) 500 mg PO TID for 3 weeks. - Refer to a colo-rectal surgeon at the next available appointment. - Repeat colonoscopy in 1 year for surveillance based on pathology results. - Return to primary care physician. - Return to GI clinic in [facility] (address: [address] [place] [address], [email or web address] floor, [place], [place],[facility]) in 4 -- 6 weeks. Please call GI clinic @ [phone] for apppointment date and time. Procedure Code(s): --- Professional --- 14560, Colonoscopy, flexible; diagnostic, including collection of specimen(s) by brushing or washing, when performed (separate procedure) Diagnosis Code(s): --- Professional --- Z12.11, Encounter for screening for malignant neoplasm of colon K64.8, Other hemorrhoids K57.32, Diverticulitis of large intestine without perforation or abscess without bleeding D49.0, Neoplasm of unspecified behavior of digestive system CPT copyright 2019 [employer]. All rights reserved. The codes documented in this report are preliminary and upon sales support associate review may be revised to meet current compliance requirements. Woody Dacosta MD Woody Dacosta MD 04/19/2021 1:40:29 PM Electronically signed by Woody Dacosta MD Number of Addenda: 0 Note Initiated On: 04/19/2021 12:05 PM Estimated Blood Loss: Estimated blood loss was minimal.
[2021-04-19] MEDS ORDERED: CIPROFLOXACIN 400 MG in IV 1 EA IV ONE (13:50)
[2021-04-19 15:01] VITALS: BP 142/89
== END 2021-04-19 15:03 | disposition home or self-care (01) ==
LOC: M OPP 10:02
PROVIDERS: ATTEND Internal Medicine Gastroenterology
DX: Z12.11 Encounter for screening for malignant neoplasm of colon (principal); Z80.0 Family history of malignant neoplasm of digestive organs; D49.0 Neoplasm of unspecified behavior of digestive system; K57.32 Diverticulitis of large intestine without perforation or abscess without bleeding; K64.8 Other hemorrhoids; Z79.899 Other long term (current) drug therapy; Z88.5 Allergy status to narcotic agent; Z88.8 Allergy status to other drugs, medicaments and biological substances; Z87.891 Personal history of nicotine dependence
CPT/HCPCS: 45380; 88305; J0744

== ENCOUNTER → 2021-04-27 | Outpatient (REF) | payer MEDICARE ==
[~2021-04-27] MED LIST changes: -NS 1,000 ML IV ONE
[2021-04-27 16:23] LABS: BLOOD UREA NITROGEN 5 MG/DL (7-18); GLOMERULAR FILTRATION RATE > 60.0 (>45)
== END ==
LOC: M LABDRAWC 15:36
PROVIDERS: ATTEND Internal Medicine Gastroenterology
DX: D49.0 Neoplasm of unspecified behavior of digestive system (principal)

== ENCOUNTER → 2021-04-28 | Outpatient (CLI) | payer MEDICARE ==
[~2021-04-28] MED LIST changes: +GASTROGRAFIN SOLUTION 30ML (Q9963) As Ordered ONE; +ISOVUE-370 76% 100ML VIAL As Ordered ONE
--- NOTE | 2021-04-28 17:40 | REP ---
INDICATION: NEOPLASM OF UNSPECIFIED BEHAVIOR OF RESPIRATORY SY. COMPARISON: None. TECHNIQUE: Standard helical technique after the intravenous administration of 100 cc Isovue 370 and oral bowel preparatory contrast administration. FINDINGS: The lung bases are clear. There is an incidental calcified granuloma in the right lower lobe. The liver, gallbladder, spleen, pancreas, adrenal glands, and kidneys are within normal limits. The abdominal aorta and para-aortic regions are within normal limits. The bowel loops and the mesenteries are within normal limits. There is a large amount of colonic content throughout the colon. There is no evidence of a mass or adenopathy. There is no evidence of free fluid or free air. Bone window technique throughout the examination shows the osseous structures to be within normal limits. IMPRESSION: There is no evidence of acute disease. There is a large amount of content seen throughout the colon which needs to be correlated clinically. Other findings as described above. <Electronically signed by Johnnie Sullivan > 04/28/21 [id number]
== END ==
LOC: M RAD 14:44
PROVIDERS: ATTEND Internal Medicine Gastroenterology
DX: D49.0 Neoplasm of unspecified behavior of digestive system (principal); R91.8 Other nonspecific abnormal finding of lung field
CPT/HCPCS: 74177; Q9963; Q9967

== ENCOUNTER → 2021-05-22 | Outpatient (CLI) | payer MEDICARE ==
[~2021-05-22] MED LIST changes: +FLUO1TAB3 PO; -GASTROGRAFIN SOLUTION 30ML (Q9963) As Ordered ONE; -ISOVUE-370 76% 100ML VIAL As Ordered ONE; +LEVO75TA4 PO; -LEVO88TA3; +LEVO88TA3 PO; +METR-265; +NEOM500T; +VITA500030 PO
== END ==
LOC: M LABSMTC 10:08
PROVIDERS: ATTEND Anesthesiology
DX: Z01.812 Encounter for preprocedural laboratory examination (principal); Z20.822 Contact with and (suspected) exposure to COVID-19

== ENCOUNTER 2021-05-25 06:55 | Inpatient (IN) | payer MEDICARE ==
--- NOTE | 2021-05-24 19:23 | HPE ---
HISTORY AND PHYSICAL DATE OF ADMISSION: 05/25/2021 REASON FOR ADMISSION: Sigmoid stricture with adenomatous polyp. HISTORY OF THE PRESENT ILLNESS: The patient is a 65-year-old woman who underwent a colonoscopy by Dr. Dacosta as a screening procedure on the March. She was found to have a stricture in the sigmoid colon associated with multiple diverticula in the area. Some erythema was noted, and there appeared to be some purulent drainage, consistent with diverticulitis. It was impossible for the conduit helper to advance a normal colonoscope through this area and a smaller enteroscope was inserted. It was possible to advance this to the cecum. A 15-20 mm polypoid lesion was found proximal to the stricture and biopsies were obtained but it was impossible to resect this. The pathology revealed fragments of tubulovillous adenoma. Because of the stricture which the conduit helper felt was clinically significant, with the polyp located above it, which could not be resected due to the limitation on insertion of the usual colonoscope, the patient is now being admitted to undergo a robotic assisted laparoscopic sigmoid colectomy to alleviate the stricture and also remove the polyp. ALLERGIES: Reported to: 1. Novocaine. 2. Lidocaine. 3. Morphine. 4. Codeine. CURRENT MEDICATIONS: 1. Levothyroxine 88 mcg p.o. daily. 2. Atorvastatin 10 mg p.o. daily. 3. Fluoxetine 20 mg p.o. daily. 4. Cetirizine 10 mg p.o. daily. MEDICAL HISTORY: The patient's past medical history is significant for: 1. History of anxiety and depression. 2. She has hypercholesterolemia. 3. Hypothyroidism. SURGICAL HISTORY: The patient's past surgical history is significant for two C-sections in 1986 and 1988. FAMILY HISTORY: The patient's mother is due to lung and colon cancer and her father apparently reports no serious medical issues. SOCIAL HISTORY: The patient is a former cigarette smoker, having quit earlier this year. She does report daily marijuana use. She denies any significant alcohol use. REVIEW OF SYSTEMS: The patient denies any history of chest pain or palpitations. She has no history of cough or wheezing. She does report some constipation and some crampy abdominal pain associated with bowel movements. There is no history of melena or hematochezia. She denies any dysuria or hematuria. She has no history of DVT or pulmonary embolus. There are no significant bone or joint issues. She denies any history of stroke or TIA or seizure. PHYSICAL EXAMINATION: GENERAL APPEARANCE: The patient is a thin woman appearing her stated age of 65 years. Height is 65 inches with a recently recorded weight of 61.3 kg. Her BMI is estimated at 23. SKIN: Warm and dry. HEENT: Sclerae are anicteric. Mucous membranes are moist. NECK: Supple without mass or bruit. HEART: Regular rate and rhythm. LUNGS: Clear to auscultation bilaterally, though the breath sounds may be slightly diminished. ABDOMEN: Thin and flat. She has an old low transverse scar consistent with her prior hysterectomies. The abdomen is soft and nontender without appreciate mass. EXTREMITIES: No peripheral edema and she has palpable radial and dorsalis pedis pulses bilaterally. RECTAL: Exam was deferred given her recent colonoscopy which showed no evidence of rectal pathology. LABORATORY STUDIES: The patient had a CEA level on April 27 that was normal at 2.2. Her colonoscopy had been performed on April 19 with results as noted in the history of the present illness. IMAGING: A CT scan of the abdomen and pelvis was performed on the 28 of April. This revealed a large amount of stool throughout the colon. There was no evidence of mass or adenopathy. I have reviewed the images personally. She appears to have some significant diverticular disease with some large diverticula, particularly in the sigmoid colon. IMPRESSION: 1. 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 2. Tubulovillous adenoma of the sigmoid colon, not endoscopically resectable due to the sigmoid stricture. 3. Hypothyroidism. 4. Hypercholesterolemia. 5. History of anxiety and depression. PLAN: The patient is being admitted on the 25 of May to undergo a robotic assisted laparoscopic sigmoid colectomy with coloproctostomy. She was counseled for the surgery. Indications for the procedure were discussed. Risks were discussed and include but are not limited to: bleeding, infection, scarring, adverse drug reaction, need for further surgery, injury of internal organ, anastomotic leak, and hernia. The patient had an opportunity to ask questions. She desires to proceed with the surgery. She will perform a full mechanical and antibiotic bowel preparation the day before surgery. This will include Neomycin and Flagyl. She will receive a dose of Cefotetan preoperatively in the hospital. I advised her that she should anticipate a hospital stay of approximately 3 days. JANELL
[~2021-05-25] VITALS: Ht 165.1 cm; Wt 60.3 kg
[2021-05-25] VITALS (7 sets, daily range): BP systolic 114–125; BP diastolic 77–80
[~2021-05-25 06:55] MED LIST changes: +ALVIMOPAN 12 MG CAPSULE (ENTEREG) PO ONE; -FLUO1TAB3 PO; -LEVO75TA4 PO; +LIDOCAINE 1% MDV 20ML VIAL SQ PRN; +LR 1,000 ML IV ONE; -METR-265; -NEOM500T; -VITA500030 PO; +cefoTEtan DISODIUM 2 GM in D5W MINI-BAG PLUS 50 ML IV ONE
--- OUTSIDE RECORDS SUMMARY | 2021-05-25 07:00 | CCD | Continuity of Care Document ---
Author Author Diane JACOB M.D. Organization Unknown Address [address], [address] [place] [address] Phone [phone] Care Team Providers Care Cad Programmer Name Role Phone Blanca Torres P.A.-C AUTM [phone] AUTM Unavailable Woody Dacosta M.D. AUTM Problems Description No Information Available Social History Type Date Description Comments Sex Unknown ETOH Use Denies alcohol use Recreational Drug Use Current Drug User Vipul a - qd smoke Tobacco Use Start: 06/26/85 End: 06/26/20 Patient is a forme r smoker 1 PPD Smoking Status Reviewed: 02/23/21 Patient is a former smoker 1 PPD Allergies and adverse reactions Active Allergies Criticality Reaction | Severity Comments Date Procaine Unable to assess criticality Hives 11/11/2020 Lidocaine Unable to assess criticality Hives, vomiting 11/11/2020 Morphine Unable to assess criticality Hives 11/11/2020 Codeine Unable to assess criticality Vomitting 05/03/2021 Medications Active Medications SIG Qnty Indications Ordering Provide r Date Miralax 17GM/Scoop Powder use as instructed by doctor for bowel prep 510gm D37.5 Judson hagen M.D. 05/13/2021 Neomycin Sulfate 500mg Tablets 2 by mouth @ 2 & 10p day before surgery, 2 by mouth @ 6am morning of surgery 6tabs D37.5 Judson Jacob M.D. 05/13/2021 Flagyl 500mg Tablets 1 tab by mouth @ 2p & 10p day before surg 1 tab by mouth @ 6am morning of surg 3tabs Judson Jacob M.D. 05/13/2021 Levothyroxine Sodium 88mcg Capsule s 1cap po qd Unknown Atorvastatin Calcium 10mg Tablets 1tab po qd Unknown Fluoxetine HCL 20mg Tablets Take 2 Tablets By Mouth Once Daily Blanca Torres PAbi. Cetirizine HCL 10mg Chewtabs 1 tab by mouth every day Unknown History Medications Ciprofloxacin HCL 500mg Tablets 1 tab by mouth twice a day ( take after eating food to prevent stomach upset). total course for 3 days 6tasophie Dacosta M.D. 03/27 - 05/03/2021 Metronidazole 500mg Tablets 1 tablet 3 times a day for total course of 3 days. ( take after eating food to prevent stomach upset) . 10tasophie Dacosta M.D. 04/19 - 05/03/2021 Sutab [id number] Tablets follow the instruction provided. drink plenty of clear liquids. (if not covered by insurance, give clenpiq/ call gi clinic) 24tasophie Dacosta M.D. 03/22/2021 - 05/03/2021 Clenpiq 10-3.5-12mg-GM -GM/160ML S olution follow pre-procedure instructions. start day before procedure. (if not covered by insurance please fill gavilyte script). 320ml Ester Dacosta M.D. 03/22/2021 - 05/03/2021 Gavilyte-N With Flavor Pack 420gm Solution Rec drink the liquid as per the pre-procedur e instructions. ( fill this script only if clenpiq is not covered by insurance). 4000ml Woody Dacosta M.D. 03/22/2021 - 05/03/[address] take 4 tablets together as per bowel preparation instructions. 4karuna Dacosta M.D. 03/22/2021 - 05/03/2021 Immunizations Description No Information Available Vital Signs Date Vital Result Comment 05/12/2021 2:59pm BP Systolic 135 mmHg BP Diastolic 82 mmHg Body Temperature 98.1 F Height 65 inches 5'5" Weight 135.12 lb BMI (Body Mass Index) 22.5 kg/m2 [place] Body Weight 125 lb Weight 61.293 kg BSA (Body Surface Area) 1.67 m2 05/03/2021 2:28pm BP Systolic 130 mmHg BP Diastolic 76 mmHg Body Temperature 96.0 F Height 65 inches 5'5" Weight 135.00 lb BMI (Body Mass Index) 22.5 kg/m2 [place] Body Weight 125 lb Weight 61.236 kg BSA (Body Surface Area) 1.67 m2 Results Test Acquired Date Facility Test Result H/L Range Note BUN & Creatinine ([facility]) 04/27/2021 [facility] Main Lab [address] [place] [address] [phone] Blood Urea Nitrogen 5 mg/dL Low 7-18 Creatinine With GFR 04/27/2021 [facility] nt Main Lab [address] [place], [place] [id number] [phone] Creatinine For GFR 0.90 mg/dL Normal 0.55-1.30 Glomerular Filtration Rate > 60.0 Normal >45 1 Laboratory test finding 04/27/2021 [facility] Main Lab [address] [place] [address] [phone] Carcinoembryonic Antigen 2.2 NG/ML Normal <2.5 2 Laboratory test finding 04/19/2021 [facility] Main Lab [address] [place], [place] [id number] [phone] Pathology Request For Service (SEE NOTE) 3 FVL/Jemal 12/16/2020 [employer] PDFReport SEE IMAGE FVC-Pred 3.34 L FVC-Pre 2.92 L FVC-%Pred-Pre 87 L FVC-LLN 2.63 L Fev1-Pred 2.57 L Fev1-Pre 2.14 L Fev1-%Pred-Pre 83 L Fev1-LLN 1.96 L Fev6-Pred 3.22 L Fev6-Pre 2.80 L Fev6-%Pred-Pre 86 L Fev6-LLN 2.52 L Kdl9ibp-Gygs 77 % Ezq8uoz-Dta 73 % Gcb0bod-%Pred-Pre 94 % Umq7apg-XUC 68 % Ybo5rfg-Hotp 96 % Spt2zsk-Stc 96 % Goj9kzd-%Pred-Pre 99 % FEFMax-Pred 6.28 L/E/sec FEFMax-Pre 5.40 L/E/sec FEFMax-%Pred-Pre 86 L/E/sec FEFMax-LLN 4.51 L/E/sec Vkt0451-Vkcq 2.28 L/E/sec Uat0162-Hxx 1.48 L/E/sec Aqz5369-%Pred-Pre 64 L/E/sec Vzu6453-PUX 1.00 L/E/sec ExpTime-Pre 8.54 sec Alh0lyg8-Ynhm 80 % Kvg4txf5-Zzi 77 % Axk9iyo9-%Pred-Pre 95 % Cxv3egd7-QBW 71 % 1 Units are mL/min/1.73 m2 Chronic Kidney Disease Staging per NKF: Stage I & II GFR >=60 Normal to Mildly Decreased Stage III GFR 30-59 Moderately Decreased Stage IV GFR 15-29 Severely Decreased Stage V GFR <15 Very Little GFR Left ESRD GFR <15 on WHIZZER 2 THE CEA ASSAY IS PERFORMED O N THE Beepi BY CHEMILUMINESCENCE AND SHOULD NOT BE COMPARED INTERCHANGEABLY WITH OTHER METHODS. IT SHOULD NOT BE USED ALONE A SCREENING TEST OR DIAGNOSIS FOR THE PRESENCE OR ABSENCE OF MALIGNANT DISEASE. PREDICTIONS OF DISEASE RECURRENCE SHOULD NOT BE BASED SOLELY ON VALUES OBTAINED FROM SERIAL PATIENT SERUM VALUES. 3 FINAL DIAGNOSIS Sigmoid colon, polypoid mass, biopsy: Fragments of tubulovillous adenoma. 04/20/2021 - 1156 CLINICAL DIAGNOSIS Screening, polypoid mass in sigmoid colon, diverticulosis, hemorrhoids and possible diverticulitis 04/19/2021 - 1512 GROSS DIAGNOSIS Received in formalin labeled "biopsy polypoid mass in sigmoid colon" is a 0.4 x 0.2 x 0.2 cm. aggregate of two tissue fragments. All in one. - 04/19/2021 - 1512 Signed Amelia Jefferson MD 04/20/2021 1448 Procedures Date Code Description Status 02/23/2021 28752 Office/Outpatient Established Lo w MDM 20-29 Min Completed 12/16/2020 14065 Office/Outpatient New Moderate M DM 45-59 Minutes Completed 12/16/2020 85900 Spirometry Completed Medical Devices Description No Information Available Encounters Type Date Location Provider Dx Diagnosis Office Visit 02/23/2021 12:30p [facility] Pulmonary/Thoracic Ivory To marietta, A.N.P. R91.8 Other nonspecific abnormal finding of lynette ng [facility] Z87.891 Personal history of nicotine dependence Office Visit 12/16/2020 10:00a [facility] Pulmonary/Thoracic Ivory To marietta, A.N.P. 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 05/12/2021 K56.690 Other partial intestinal obstruc tion Judson Jacob M.D. 04/21/2021 D49.0 Neoplasm of sigmoid colon Pankaj Dacosta M.D. 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 02/23/2021 R91.8 Other nonspecific abnormal findi ng of lung field Jolie Blackwell.N.POliva 02/23/2021 Z87.891 Personal history of nicotine dep endence Jolie Blackwell.N.P. 12/16/2020 R91.8 Other nonspecific abnormal findi ng of lung field Lavell BlackwellN.P. 12/16/2020 F17.218 Nicotine dependence, cigarettes, with other nicotine-induced disorders Maricel Blackwell Plan of Treatment Future Appointment(s):* 05/25/2021 8:30 am - Hu Tenorio MD at [facility] * 05/25/2021 8:30 am - Judson Jacob M.D. 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 Dacosta had raised. By his report she has some significant narrowing in her sigmoid colon and is at risk for obstruction. She had a polyp that was a tubulovillous adenoma that was biopsied but could not be resected because of its location above the stricture. I advised her that this combination of factors would be best addressed by resecting her sigmoid colon and ensuring that the polyp is removed at the same time. Dr. Dacosta described the polyp as being in the proximal sigmoid colon But it was not possible to teetee this area. I advised her that I would need to try to identify the polyp specifically at the time of the resection. I described the procedure to her. I advised her that I would normally approach this as a robotic assisted laparoscopic procedure. I advised her that her hospital stay would normally be about 3 days but longer if there were any issues that arose. I discussed with her the risks of the procedure which include but are not l imited to bleeding, infection, scarring, adverse drug reaction, need for further surgery, injury of internal organ, anastomotic leak, and hernia. The patient had an opportunity to ask questions. These were answered to the best of my ability. She desires to proceed with the surgery. I advised her that she will need to perform a bowel prep with antibiotics the day before the surgery. She became ill with the Nicole tabs that were provided for the colonoscopy prep. We will try MiraLAX and Gatorade as her prep with neomycin and Flagyl for antibiotics. We discussed the timing and it turns out that there is an opening in my robotic schedule on 25 May. [place] for [place] and this should allow her to heal adequately to travel in time for the holiday. * K56.690 Other partial intestinal obstruction Functional Status Description No Information Available Mental Status Description No Information Available Referrals Refer to Reason for Referral Status Appt Date Judson Jacob M.D. 65 year old female patient w ith severe distal sigmoid diverticulosis with prior diverticulitis and now with stenosis and one sessile polypoid mass -- biopsied in Colonoscopy -- showed high risk tubulovillous adenoma features. Patient is scheduled for CT scan and CEA levels. Please evaluate for segmental resection. thank you. Scheduled 05/03/20 21 [facility] [address] [id number] [phone] Radiology/Procedure [id number] Closed 02/15/2021 Ivory Daniel A.N.P. ABNORMAL LDCT Closed 12/16/2020 [facility] Pulmonary [address] [place] [id number] [phone]
--- OUTSIDE RECORDS SUMMARY | 2021-05-25 07:00 | CCD | Continuity of Care Document ---
Author Author Diane JACOB M.D. Organization Unknown Address [address], [address] [place] [address] Phone [phone] Care Team Providers Care Service Order Dispatcher Chief Name Role Phone Blanca Torres P.A.-C AUTM AUTM Unavailable Woody Dacosta M.D. AUTM Problems [...] 10tasophie Dacosta M.D. 04/19 - 05/03/2021 Sutab [id number] Tablets follow the instruction provided. drink plenty [...] lb BMI (Body Mass Index) 22.5 kg/m2 [place] Body Weight 125 lb Weight 61.293 kg BSA (Body Surface Area) 1.67 m2 05/03/2021 2:28pm BP Systolic 130 mmHg BP Diastolic 76 mmHg Body Temperature 96.0 F Height 65 inches 5'5" Weight 135.00 lb BMI (Body Mass Index) 22.5 kg/m2 [place] Body Weight 125 lb Weight 61.236 kg BSA (Body Surface Area) 1.67 m2 Results Test Acquired Date Facility Test Result H/L Range Note BUN & Creatinine ([facility]) 04/27/2021 [facility] Main Lab [address] [place] [address] [phone] Blood Urea Nitrogen 5 mg/dL Low 7-18 Creatinine With GFR 04/27/2021 [facility] nt Main Lab [address] [place], [place] [id number] [phone] Creatinine For GFR 0.90 mg/dL Normal 0.55-1.30 Glomerular Filtration Rate > 60.0 Normal >45 1 Laboratory test finding 04/27/2021 [facility] Main Lab [address] [place] [address] [phone] Carcinoembryonic Antigen 2.2 NG/ML Normal <2.5 2 Laboratory test finding 04/19/2021 [facility] Main Lab [address] [place], [place] [address] [phone] Pathology Request For Service (SEE NOTE) 3 FVL/Jemal 12/16/2020 [employer] PDFReport SEE IMAGE FVC-Pred 3.34 L FVC-Pre 2.92 L FVC-%Pred-Pre 87 L FVC-LLN 2.63 L Fev1-Pred 2.57 L Fev1-Pre 2.14 L Fev1-%Pred-Pre 83 L Fev1-LLN 1.96 L Fev6-Pred 3.22 L Fev6-Pre 2.80 L Fev6-%Pred-Pre 86 L Fev6-LLN 2.52 L Phb0cis-Yjwi 77 % Hjp8gzy-Gis 73 % Ina8wco-%Pred-Pre 94 % Ndr2bmw-BYY 68 % Ezn4xos-Ytfk 96 % Ias9gzb-Erc 96 % Ury0sxo-%Pred-Pre 99 % FEFMax-Pred 6.28 L/E/sec FEFMax-Pre 5.40 L/E/sec FEFMax-%Pred-Pre 86 L/E/sec FEFMax-LLN 4.51 L/E/sec Nri3993-Rbpd 2.28 L/E/sec Vou1160-Phq 1.48 L/E/sec Hvj4038-%Pred-Pre 64 L/E/sec Njx9850-ULL 1.00 L/E/sec ExpTime-Pre 8.54 sec Uus3gbn3-Gued 80 % Eue1avr6-Tye 77 % Nxz7wez3-%Pred-Pre 95 % Bwt5peb2-MPP 71 % 1 Units are mL/min/1.73 m2 Chronic Kidney Disease Staging per NKF: Stage I & II GFR >=60 Normal to Mildly Decreased Stage III GFR 30-59 Moderately Decreased Stage IV GFR 15-29 Severely Decreased Stage V GFR <15 Very Little GFR Left ESRD GFR <15 on [employer] 2 THE CEA ASSAY IS PERFORMED O N THE Gravitant BY CHEMILUMINESCENCE AND SHOULD NOT BE COMPARED [...] diverticulosis, hemorrhoids and possible diverticulitis 04/19/2021 - 151 GROSS DIAGNOSIS Received in formalin labeled "biopsy polypoid mass in sigmoid colon" is a 0.4 x 0.2 x 0.2 cm. aggregate of two tissue fragments. All in one. - 04/19/2021 - 1512 Signed Amelia Jefferson MD 04/20/2021 1448 Procedures Date Code Description Status 05/12/2021 81100 Office/Outpatient Established Mo d MDM 30-39 Min Completed 02/23/2021 57381 Office/Outpatient Established Lo w MDM 20-29 Min Completed 12/16/2020 62679 Office/Outpatient New Moderate M DM 45-59 Minutes Completed 12/16/2020 93361 Spirometry Completed Medical Devices Description No Information Available Encounters Type Date Location Provider Dx Diagnosis Office Visit 05/12/2021 2:45p [facility] Judson costa M.D. D37.5 Neoplasm of uncertain behavior of rectum K56.690 Other partial intestinal obs truction Office Visit 02/23/2021 12:30p [facility] Pulmonary/Thoracic Ivory To wne, A.N.P. R91.8 Other nonspecific abnormal finding of lynette ng [facility] Z87.891 Personal history of nicotine dependence Office Visit 12/16/2020 10:00a [facility] Pulmonary/Thoracic Ivory To wne, A.N.P. R91.8 Other nonspecific abnormal finding of [...] abnormal findi ng of lung field Ivory Daniel, A.N.P. 02/23/2021 Z87.891 Personal history of nicotine dep endence Ivory Daniel A.N.P. 12/16/2020 R91.8 Other nonspecific abnormal findi ng of lung field Ivory Daniel A.N.P. 12/16/2020 F17.218 Nicotine dependence, cigarettes, with other nicotine-induced disorders Lavell BlackwellN.Aaron. Plan of Treatment Future Appointment(s):* 05/25/2021 8:30 am - Hu Tenorio MD at [facility] * 05/25/2021 8:30 am - Judson Jacob M.D. at [facility] * 08/30/2021 11:30 am - Lavell BlackwellN.Mario at [facility] Pulmonary/Thoracic 05/12/2021 - Judson Jacob M.D.* D37.5 [...] She is planning to travel south for [place] and this should allow her to heal [...] for segmental resection. thank you. Scheduled 05/03/20 [facility] [address] [place], [place] [address] [phone] Radiology/Procedure [id number] Closed 02/15/2021 Ivory Daniel A.N.P. ABNORMAL LDCT Closed 12/16/2020 [facility] Pulmonary [address] [place], [place] [address] [phone]
--- OUTSIDE RECORDS SUMMARY | 2021-05-25 07:01 | CCD | Continuity of Care Document ---
Author Author Diane JACOB M.D. Organization Unknown Address [address] [facility], [address] [place] [address] Phone [phone] Care Team Providers Care Composing Machine Operator Name Role Phone Blanca Torres P.A.-C AUTM AUTM Unavailable Woody Dacosta M.D. AUTM [phone] Problems Description No Information Available Social History Type Date Description Comments Sex Unknown ETOH Use Denies alcohol use Recreational Drug Use Current Drug User Marijuan a - qd smoke Tobacco Use Start: [...] Tablets By Mouth Once Daily Blanca Torres P.A. Cetirizine HCL 10mg Chewtabs 1 tab by mouth every day Unknown History Medications Ciprofloxacin HCL 500mg Tablets 1 tab by mouth twice a day ( take after eating food to prevent stomach upset). total course for 3 days 6tabs Woody Dacosta M.D. 03/27 - 05/03/2021 Metronidazole 500mg Tablets 1 tablet 3 times a day for total course of 3 days. ( take after eating food to prevent stomach upset) . 10tasophie Dacosta M.D. 04/19 - 05/03/2021 Sutab [id number] Tablets follow the instruction provided. drink plenty [...] instructions. 4karuna Dacosta M.D. 03/22/2021 - 05/03/2021 Sutab [id number] Tablets follow the instruction provided. drink plenty of clear liquids. (if not covered by insurance, give clenpiq/ call gi clinic) 24tasophie Z12.11 Woody Dacosta M.D. 11/11/2020 - 11/15/2020 [...] lb BMI (Body Mass Index) 22.5 kg/m2 [place] Body Weight 125 lb Weight 61.293 kg BSA (Body Surface Area) 1.67 m2 05/03/2021 2:28pm BP Systolic 130 mmHg BP Diastolic 76 mmHg Body Temperature 96.0 F Height 65 inches 5'5" Weight 135.00 lb BMI (Body Mass Index) 22.5 kg/m2 [place] Body Weight 125 lb Weight 61.236 kg BSA (Body Surface Area) 1.67 m2 Results Test Acquired Date Facility Test Result H/L Range Note BUN & Creatinine ([facility]) 04/27/2021 [facility] Main Lab [address] [place], [place] [id number] [phone] Blood Urea Nitrogen 5 mg/dL Low 7-18 Creatinine With GFR 04/27/2021 [facility] nter Main Lab [address] [place] [address] [id number] [phone] Creatinine For GFR 0.90 mg/dL Normal 0.55-1.30 Glomerular Filtration Rate > 60.0 Normal >45 1 Laboratory test finding 04/27/2021 [facility] Main Lab [address] [place] [address] [phone] Carcinoembryonic Antigen 2.2 NG/ML Normal <2.5 2 Laboratory test finding 04/19/2021 [facility] Main Lab [address] [place], [place] [address] [phone] Pathology Request For Service (SEE NOTE) 3 FVL/Jemal 12/16/2020 Medgraphics PDFReport SEE IMAGE FVC-Pred 3.34 L FVC-Pre 2.92 L FVC-%Pred-Pre 87 L FVC-LLN 2.63 L Fev1-Pred 2.57 L Fev1-Pre 2.14 L Fev1-%Pred-Pre 83 L Fev1-LLN 1.96 L Fev6-Pred 3.22 L Fev6-Pre 2.80 L Fev6-%Pred-Pre 86 L Fev6-LLN 2.52 L Wjo9dgo-Rjuq 77 % Err1tos-Bdb 73 % Xlr2zrh-%Pred-Pre 94 % Zjn0dwa-TLY 68 % Tcn3rfm-Ahls 96 % Sfx4jhs-Hrd 96 % Juw1tqd-%Pred-Pre 99 % FEFMax-Pred 6.28 L/E/sec FEFMax-Pre 5.40 L/E/sec FEFMax-%Pred-Pre 86 L/E/sec FEFMax-LLN 4.51 L/E/sec Qho9716-Tknj 2.28 L/E/sec Nvx2180-Uns 1.48 L/E/sec Sel5266-%Pred-Pre 64 L/E/sec Jka9843-QRX 1.00 L/E/sec ExpTime-Pre 8.54 sec Fot0fih8-Qykf 80 % Xye6aqh9-Eod 77 % Lnn1dcy9-%Pred-Pre 95 % Got9xxd6-WOT 71 % 1 Units are mL/min/1.73 m2 Chronic Kidney Disease Staging per NKF: Stage I & II GFR >=60 Normal to Mildly Decreased Stage III GFR 30-59 Moderately Decreased Stage IV GFR 15-29 Severely Decreased Stage V GFR <15 Very Little GFR Left ESRD GFR <15 on FINAL INSPECTOR SHUTTLE 2 THE CEA ASSAY IS PERFORMED O N THE [employer] BY CHEMILUMINESCENCE AND SHOULD NOT BE COMPARED [...] 1448 Procedures Date Code Description Status 02/23/2021 47347 Office/Outpatient Established Lo w MDM 20-29 Min Completed 12/16/2020 48720 Office/Outpatient New Moderate M DM 45-59 Minutes Completed 12/16/2020 43684 Spirometry Completed 11/11/2020 12406 Office/Outpatient Established Lo w MDM 20-29 Min Completed Medical Devices Description No Information Available Encounters Type Date Location Provider Dx Diagnosis Office Visit 02/23/2021 12:30p [facility] Ivory To marietta, A.N.P. R91.8 Other nonspecific abnormal finding of lynette aleyda song Z87.891 Personal history of nicotine dependence Office Visit 12/16/2020 10:00a [facility] Ivory To marietta, A.N.P. R91.8 Other nonspecific abnormal finding of lynette ng F17.218 Nicotine dependence, cigaret yaima, w oth disorders Office Visit 11/11/2020 10:00a [facility] Pra maty Dacosta M.D. 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 05/12/2021 K56.690 Other partial intestinal obstruc tion Judson Jacob M.D. 04/21/2021 D49.0 Neoplasm of sigmoid colon Pankaj Dacosta M.D. 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 02/23/2021 R91.8 Other nonspecific abnormal findi ng of lung field Ivory Daniel A.N.P. 02/23/2021 Z87.891 Personal history of nicotine dep endence Ivory Daniel, A.N.P. 12/16/2020 R91.8 Other nonspecific abnormal findi ng of lung field Ivory Daniel, A.N.P. 12/16/2020 F17.218 Nicotine dependence, cigarettes, with other nicotine-induced disorders Ivory Daniel A.N.P. 11/11/2020 K58.2 Mixed irritable bowel syndrome Jania Dacosta M.D. 11/11/2020 Z12.11 Encounter for screening for toby gnant neoplasm of colon Woody Dacosta M.D. Plan of Treatment Future Appointment(s):* 05/25/2021 8:30 am - Judson Jacob M.D. at [facility] * 08/30/2021 11:30 am - Maricel Blackwell at [facility] 05/12/2021 - Judson Jacob M.D.* D37.5 [...] [place] and this should allow her to heal [...] for segmental resection. thank you. Scheduled 05/03/20 [facility] [address] [facility] [address] [place], [place] [address] [phone] Radiology/Procedure [id number] Closed 02/15/2021 Ivory Daniel A.N.P. ABNORMAL LDCT Closed 12/16/2020 [facility]monary [address] [place], [place] [address] [phone]
--- OUTSIDE RECORDS SUMMARY | 2021-05-25 07:01 | CCD | Continuity of Care Document ---
Author Author Diane JACOB M.D. Organization Unknown Address [address] [facility], [address] [place] [address] Phone [phone] Care Team Providers Care Social Sciences Instructor Name Role Phone Blanca Torres P.A.-C AUTM AUTM Unavailable Woody Dacosta M.D. AUTM [phone] Problems Description No Information Available Social [...] 10tasophie Dacosta M.D. 04/19 - 05/03/2021 Sutab [id number] Tablets follow the instruction provided. drink plenty [...] 4karuna Dacosta M.D. 03/22/2021 - 05/03/2021 Sutab [id number] Tablets follow the instruction provided. drink plenty [...] lb BMI (Body Mass Index) 22.5 kg/m2 [place] Body Weight 125 lb Weight 61.293 kg BSA (Body Surface Area) 1.67 m2 05/03/2021 2:28pm BP Systolic 130 mmHg BP Diastolic 76 mmHg Body Temperature 96.0 F Height 65 inches 5'5" Weight 135.00 lb BMI (Body Mass Index) 22.5 kg/m2 [place] Body Weight 125 lb Weight 61.236 kg BSA (Body Surface Area) 1.67 m2 Results Test Acquired Date Facility Test Result H/L Range Note BUN & Creatinine ([facility]) 04/27/2021 [facility] Main Lab [address] [place], [place] [id number] [phone] Blood Urea Nitrogen 5 mg/dL Low 7-18 Creatinine With GFR 04/27/2021 [facility] nter Main Lab [address] [place] [address] [phone] Creatinine For GFR 0.90 mg/dL Normal 0.55-1.30 Glomerular Filtration Rate > 60.0 Normal >45 1 Laboratory test finding 04/27/2021 [facility] Main Lab [address] [place] [address] [phone] Carcinoembryonic Antigen 2.2 NG/ML Normal <2.5 2 Laboratory test finding 04/19/2021 [facility] Main Lab [address] [place], [place] 5[address] [phone] Pathology Request For Service (SEE NOTE) 3 FVL/Jemal 12/16/2020 Medgraphics PDFReport SEE IMAGE FVC-Pred 3.34 L FVC-Pre 2.92 L FVC-%Pred-Pre 87 L FVC-LLN 2.63 L Fev1-Pred 2.57 L Fev1-Pre 2.14 L Fev1-%Pred-Pre 83 L Fev1-LLN 1.96 L Fev6-Pred 3.22 L Fev6-Pre 2.80 L Fev6-%Pred-Pre 86 L Fev6-LLN 2.52 L Pgv5dya-Ebxc 77 % Uwi6doy-Vys 73 % Lsy4hba-%Pred-Pre 94 % Yyf8qpk-JLR 68 % Gsb6qqy-Xcch 96 % Epf1qar-Vea 96 % Wew2zcy-%Pred-Pre 99 % FEFMax-Pred 6.28 L/E/sec FEFMax-Pre 5.40 L/E/sec FEFMax-%Pred-Pre 86 L/E/sec FEFMax-LLN 4.51 L/E/sec Xna6811-Lsyx 2.28 L/E/sec Cfk8034-Wmu 1.48 L/E/sec Ihk4069-%Pred-Pre 64 L/E/sec Exo1725-ATK 1.00 L/E/sec ExpTime-Pre 8.54 sec Ugi5dsb4-Vhcf 80 % Opq4ito7-Ccw 77 % Hap5oce5-%Pred-Pre 95 % Cqd3kwu8-BSA 71 % 1 Units are mL/min/1.73 m2 Chronic Kidney Disease Staging per NKF: Stage I & II GFR >=60 Normal to Mildly Decreased Stage III GFR 30-59 Moderately Decreased Stage IV GFR 15-29 Severely Decreased Stage V GFR <15 Very Little GFR Left ESRD GFR <15 on AIRCRAFT DESIGNER 2 THE CEA ASSAY IS PERFORMED O N THE [employer] BY CHEMILUMINESCENCE AND SHOULD NOT BE COMPARED [...] 1448 Procedures Date Code Description Status 02/23/2021 14378 Office/Outpatient Established Lo w MDM 20-29 Min Completed 12/16/2020 89676 Office/Outpatient New Moderate M DM 45-59 Minutes Completed 12/16/2020 34232 Spirometry Completed 11/11/2020 74024 Office/Outpatient Established Lo w MDM 20-29 Min Completed Medical Devices Description No Information Available Encounters Type Date Location Provider Dx Diagnosis Office Visit 02/23/2021 12:30p [facility] Ivory To marietta, A.N.P. R91.8 Other nonspecific abnormal finding of lynette aleyda song Z87.891 Personal history of nicotine dependence Office Visit 12/16/2020 10:00a [facility] Ivory To marietta, A.N.P. R91.8 Other nonspecific abnormal finding of lynette ng F17.218 Nicotine dependence, cigaret yaima, w oth disorders Office Visit 11/11/2020 10:00a [facility] Pra maty Dacosta M.D. K58.2 Mixed irritable bowel syndro mi Z12.11 Encounter for screening for malignant neoplasm [...] 8:30 am - Judson Jacob M.D. at [facility] * 08/30/2021 11:30 am - Maricel Blackwell at [facility] 05/12/2021 - Judson Jacob M.D.* D37.5 [...] for segmental resection. thank you. Scheduled 05/03/20 [facility] [address] [facility] [address] [place], [place] [address] [phone] Radiology/Procedure [id number] Closed 02/15/2021 Ivory Daniel A.N.P. ABNORMAL LDCT Closed 12/16/2020 [facility] [address] [place], [place] [address] [phone]
--- OUTSIDE RECORDS SUMMARY | 2021-05-25 07:01 | CCD | Continuity of Care Document ---
Author Author Diane JACOB M.D. Organization Unknown Address [address] [place] [address], [address] [place] [address] Phone [phone] Care Team Providers Care [employer] Name Role Phone Blanca Torres P.A.-C AUTM [...] 10tasophie Dacosta M.D. 04/19 - 05/03/2021 Sutab [id number] Tablets follow the instruction provided. drink plenty [...] 4karuna Dacosta M.D. 03/22/2021 - 05/03/2021 Sutab [id number] Tablets follow the instruction provided. drink plenty [...] Available Vital Signs Date Vital Result Comment 05/03/2021 2:28pm BP Systolic 130 mmHg BP Diastolic 76 mmHg Body Temperature 96.0 F Height 65 inches 5'5" Weight 135.00 lb BMI (Body Mass Index) 22.5 kg/m2 [place] Body Weight 125 lb Weight 61.236 kg BSA (Body Surface Area) 1.67 m2 02/23/2021 12:17pm BP Systolic 128 mmHg BP Diastolic 82 mmHg Heart Rate 73 /min O2 % BldC Oximetry 97 % Height 65 inches 5'5" Weight 135.00 lb BMI (Body Mass Index) 22.5 kg/m2 [place] Body Weight 125 lb Weight 61.236 kg BSA (Body Surface Area) 1.67 m2 Results Test Acquired Date Facility Test Result H/L Range Note BUN & Creatinine ([facility]) 04/27/2021 [facility] Main Lab [address] [place] [address] [phone] Blood Urea Nitrogen 5 mg/dL Low 7-18 Creatinine With GFR 04/27/2021 [facility] nt Main Lab [address] [place] [address] [phone] Creatinine For GFR 0.90 mg/dL Normal 0.55-1.30 Glomerular Filtration Rate > 60.0 Normal >45 1 Laboratory test finding 04/27/2021 [facility] Main Lab [address] [place] [address] [phone] Carcinoembryonic Antigen 2.2 NG/ML Normal <2.5 2 Laboratory test finding 04/19/2021 [facility] Main Lab [address] [place] [address] [phone] Pathology Request For Service (SEE NOTE) 3 FVL/Jemal 12/16/2020 Medgraphics PDFReport SEE IMAGE FVC-Pred 3.34 L FVC-Pre 2.92 L FVC-%Pred-Pre 87 L FVC-LLN 2.63 L Fev1-Pred 2.57 L Fev1-Pre 2.14 L Fev1-%Pred-Pre 83 L Fev1-LLN 1.96 L Fev6-Pred 3.22 L Fev6-Pre 2.80 L Fev6-%Pred-Pre 86 L Fev6-LLN 2.52 L Zhl7qsy-Csqj 77 % Ncz0ofa-Xya 73 % Fli2gzg-%Pred-Pre 94 % Vod5nec-HRW 68 % Lkc6mzf-Twcd 96 % Hly6imq-Frd 96 % Dml7xum-%Pred-Pre 99 % FEFMax-Pred 6.28 L/E/sec FEFMax-Pre 5.40 L/E/sec FEFMax-%Pred-Pre 86 L/E/sec FEFMax-LLN 4.51 L/E/sec Zkq1061-Bzdv 2.28 L/E/sec Mnz1542-Rnr 1.48 L/E/sec Yby0389-%Pred-Pre 64 L/E/sec Wax3826-UWL 1.00 L/E/sec ExpTime-Pre 8.54 sec Qei1oxb0-Nfol 80 % Izc4pto6-Pdo 77 % Etp1isf1-%Pred-Pre 95 % Riz7iab6-BNQ 71 % 1 Units are mL/min/1.73 m2 Chronic Kidney Disease Staging per NKF: Stage I & II GFR >=60 Normal to Mildly Decreased Stage III GFR 30-59 Moderately Decreased Stage IV GFR 15-29 Severely Decreased Stage V GFR <15 Very Little GFR Left ESRD GFR <15 on RADIAL SAW OPERATOR 2 THE CEA ASSAY IS PERFORMED O N THE [employer] Services BY CHEMILUMINESCENCE AND SHOULD NOT BE COMPARED [...] 1448 Procedures Date Code Description Status 02/23/2021 81324 Office/Outpatient Established Lo w MDM 20-29 Min Completed 12/16/2020 46612 Office/Outpatient New Moderate M DM 45-59 Minutes Completed 12/16/2020 74511 Spirometry Completed 11/11/2020 32143 Office/Outpatient Established Lo w MDM 20-29 Min Completed Medical Devices Description No Information Available Encounters Type Date Location Provider Dx Diagnosis Office Visit 02/23/2021 12:30p [facility] Ivory To marietta, A.N.P. R91.8 Other nonspecific abnormal finding of lynette ng Z87.891 Personal history of nicotine dependence Office Visit 12/16/2020 10:00a [facility] Ivory To marietta, A.N.P. R91.8 Other nonspecific abnormal finding of lynette ng F17.218 Nicotine dependence, cigaret yaima, w oth disorders Office Visit 11/11/2020 10:00a [facility] Pra maty Dacosta M.D. K58.2 Mixed irritable bowel syndro nh Z12.11 Encounter for screening for malignant neoplasm of colon Assessments Date Code Description Provider 04/21/2021 D49.0 Neoplasm of sigmoid colon Pankaj Dacosta M.D. 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 02/23/2021 R91.8 Other nonspecific abnormal findi ng of lung field Jolie Blackwell.N.P. 02/23/2021 Z87.891 Personal history of nicotine dep endence Ivory Daniel, A.N.P. 12/16/2020 R91.8 Other nonspecific abnormal findi ng of lung field Jolie Blackwell.N.POliva 12/16/2020 F17.218 Nicotine dependence, cigarettes, with other nicotine-induced disorders Ivory Daniel A.N.P. 11/11/2020 K58.2 Mixed irritable bowel syndrome Jania Dacosta M.D. 11/11/2020 Z12.11 Encounter for screening for toby gnant neoplasm of colon Woody Dacosta M.D. Plan of Treatment Future Appointment(s):* 08/30/2021 11:30 am - Jolie Blackwell.N.P. at [facility] 02/23/2021 - Ivory Daniel A.N.P.* R91.8 Other nonspecific abnormal finding of lung [...] for segmental resection. thank you. Scheduled 05/03/20 [facility] [address] [facility] [address] [place], [place] [address] [phone] Radiology/Procedure [id number] Closed 02/15/2021 Ivory Daniel A.N.P. ABNORMAL LDCT Closed 12/16/2020 [facility] [address] [place], [place] [address] [phone]
--- OUTSIDE RECORDS SUMMARY | 2021-05-25 07:01 | CCD | Continuity of Care Document ---
Author Author Diane JACOB M.D. Organization Unknown Address [address] [facility], [address] [place] [address] Phone [phone] Care Team Providers Care Bull Gang Supervisor Name Role Phone Blanca Torres P.A.-C AUTM [phone] AUTM Unavailable Woody Dacosta M.D. AUTM [...] 10tasophie Dacosta M.D. 04/19 - 05/03/2021 Sutab [id number] Tablets follow the instruction provided. drink plenty [...] 4karuna Dacosta M.D. 03/22/2021 - 05/03/2021 Sutab [id number] Tablets follow the instruction provided. drink plenty of clear liquids. (if not covered by insurance, give clenpiq/ call gi clinic) 24tasopihe Z12.11 Woody Dacosta M.D. 11/11/2020 - 11/15/2020 [...] lb BMI (Body Mass Index) 22.5 kg/m2 [place] Body Weight 125 lb Weight 61.293 kg BSA (Body Surface Area) 1.67 m2 05/03/2021 2:28pm BP Systolic 130 mmHg BP Diastolic 76 mmHg Body Temperature 96.0 F Height 65 inches 5'5" Weight 135.00 lb BMI (Body Mass Index) 22.5 kg/m2 [place] Body Weight 125 lb Weight 61.236 kg BSA (Body Surface Area) 1.67 m2 Results Test Acquired Date Facility Test Result H/L Range Note BUN & Creatinine ([facility]) 04/27/2021 [facility] Main Lab [address] [place], [place] [id number] [phone] Blood Urea Nitrogen 5 mg/dL Low 7-18 Creatinine With GFR 04/27/2021 [facility] nter Main Lab [address] [place] [address] [id number] [phone] Creatinine For GFR 0.90 mg/dL Normal 0.55-1.30 Glomerular Filtration Rate > 60.0 Normal >45 1 Laboratory test finding 04/27/2021 [facility] Main Lab [address] [place] [address] [phone] Carcinoembryonic Antigen 2.2 NG/ML Normal <2.5 2 Laboratory test finding 04/19/2021 [facility] Main Lab [address] [place], [place] [address] [phone] Pathology Request For Service (SEE NOTE) 3 FVL/Jemal 12/16/2020 Medgraphics PDFReport SEE IMAGE FVC-Pred 3.34 L FVC-Pre 2.92 L FVC-%Pred-Pre 87 L FVC-LLN 2.63 L Fev1-Pred 2.57 L Fev1-Pre 2.14 L Fev1-%Pred-Pre 83 L Fev1-LLN 1.96 L Fev6-Pred 3.22 L Fev6-Pre 2.80 L Fev6-%Pred-Pre 86 L Fev6-LLN 2.52 L Xyy1amt-Zgda 77 % Peo4xdc-Mxq 73 % Tdp2noz-%Pred-Pre 94 % Jpb1vio-NLC 68 % Ykx3glm-Gvmq 96 % Yjr0opw-Vdj 96 % Hry2yhn-%Pred-Pre 99 % FEFMax-Pred 6.28 L/E/sec FEFMax-Pre 5.40 L/E/sec FEFMax-%Pred-Pre 86 L/E/sec FEFMax-LLN 4.51 L/E/sec Uxv7235-Ixzm 2.28 L/E/sec Elj3721-Uji 1.48 L/E/sec Ljc2323-%Pred-Pre 64 L/E/sec Hrt5664-BNA 1.00 L/E/sec ExpTime-Pre 8.54 sec Nqc3nio5-Pjqn 80 % Ztb7cjx6-Dno 77 % Mgu0elh6-%Pred-Pre 95 % Vky5iyf5-PMI 71 % 1 Units are mL/min/1.73 m2 Chronic Kidney Disease Staging per NKF: Stage I & II GFR >=60 Normal to Mildly Decreased Stage III GFR 30-59 Moderately Decreased Stage IV GFR 15-29 Severely Decreased Stage V GFR <15 Very Little GFR Left ESRD GFR <15 on PACKAGE LINE OPERATOR 2 THE CEA ASSAY IS PERFORMED O N THE [employer] BY CHEMILUMINESCENCE AND SHOULD NOT BE COMPARED [...] 1448 Procedures Date Code Description Status 02/23/2021 14204 Office/Outpatient Established Lo w MDM 20-29 Min Completed 12/16/2020 31998 Office/Outpatient New Moderate M DM 45-59 Minutes Completed 12/16/2020 06767 Spirometry Completed 11/11/2020 46021 Office/Outpatient Established Lo w MDM 20-29 Min Completed Medical Devices Description No Information Available Encounters Type Date Location Provider Dx Diagnosis Office Visit 02/23/2021 12:30p [facility] Ivory To marietta, A.N.P. R91.8 Other nonspecific abnormal finding of lynette aleyda song Z87.891 Personal history of nicotine dependence Office Visit 12/16/2020 10:00a [facility] Ivory To marietta, A.N.P. R91.8 Other nonspecific abnormal finding of lynette ng F17.218 Nicotine dependence, cigaret yaima, w oth disorders Office Visit 11/11/2020 10:00a [facility] Pra maty Dacosta M.D. K58.2 Mixed irritable bowel syndro ne Z12.11 Encounter for screening for malignant neoplasm [...] 8:30 am - Judson Jacob M.D. at [facility] * 08/30/2021 11:30 am - Maricel Blackwell at [facility] 05/12/2021 - Judson Jacob M.D.* D37.5 [...] for segmental resection. thank you. Scheduled 05/03/20 [facility] [address] [facility] [address] [place], [place] [address] [phone] Radiology/Procedure [id number] Closed 02/15/2021 Ivory Daniel A.N.P. ABNORMAL LDCT Closed 12/16/2020 [facility] [address] [place], [place] [address] [phone]
--- OUTSIDE RECORDS SUMMARY | 2021-05-25 07:01 | CCD ---
Continuity of Care Document (CCD) Created on: 05/03/2021 AnnyDiane bolden External Reference #: [id number] : [id number] Sex: Female Author Author Diane JACOB M.D. Organization Unknown Address [address] [place] [address], [address] [place] [address] Phone [phone] Care Team Providers Care Configuration Management Analyst Name Role Phone Blanca Torres P.A.-C AUTM [phone] AUTM Unavailable Woody Dacosta M.D. AUTM [...] food to prevent stomach upset) . 10tasophie Dacosat M.D. 04/19 - 05/03/2021 Sutab [id number] Tablets follow the instruction provided. drink plenty [...] 4karuna Dacosta M.D. 03/22/2021 - 05/03/2021 Sutab [id number] Tablets follow the instruction provided. drink plenty [...] lb BMI (Body Mass Index) 22.5 kg/m2 [place] Body Weight 125 lb Weight 61.236 kg BSA (Body Surface Area) 1.67 m2 02/23/2021 12:17pm BP Systolic 128 mmHg BP Diastolic 82 mmHg Heart Rate 73 /min O2 % BldC Oximetry 97 % Height 65 inches 5'5" Weight 135.00 lb BMI (Body Mass Index) 22.5 kg/m2 [place] Body Weight 125 lb Weight 61.236 kg BSA (Body Surface Area) 1.67 m2 Results Test Acquired Date Facility Test Result H/L Range Note BUN & Creatinine ([facility]) 04/27/2021 [facility] Main Lab [address] [place] [address] [phone] Blood Urea Nitrogen 5 mg/dL Low 7-18 Creatinine With GFR 04/27/2021 [facility] nt Main Lab [address] [place] [address] [phone] Creatinine For GFR 0.90 mg/dL Normal 0.55-1.30 Glomerular Filtration Rate > 60.0 Normal >45 1 Laboratory test finding 04/27/2021 [facility] Main Lab [address] [place] [address] [phone] Carcinoembryonic Antigen 2.2 NG/ML Normal <2.5 2 Laboratory test finding 04/19/2021 [facility] Main Lab [address] [place] [address] [phone] Pathology Request For Service (SEE NOTE) 3 FVL/Jemal 12/16/2020 Medgraphics PDFReport SEE IMAGE FVC-Pred 3.34 L FVC-Pre 2.92 L FVC-%Pred-Pre 87 L FVC-LLN 2.63 L Fev1-Pred 2.57 L Fev1-Pre 2.14 L Fev1-%Pred-Pre 83 L Fev1-LLN 1.96 L Fev6-Pred 3.22 L Fev6-Pre 2.80 L Fev6-%Pred-Pre 86 L Fev6-LLN 2.52 L Qwm4jmt-Ezyg 77 % Vxc7fvi-Bkq 73 % Bdi2kzs-%Pred-Pre 94 % Fzo1nmz-UAZ 68 % Uef2jsd-Tzyl 96 % Izs5oxe-Mks 96 % Nln9spu-%Pred-Pre 99 % FEFMax-Pred 6.28 L/E/sec FEFMax-Pre 5.40 L/E/sec FEFMax-%Pred-Pre 86 L/E/sec FEFMax-LLN 4.51 L/E/sec Rlx5022-Kxuo 2.28 L/E/sec Hyy0690-Pkf 1.48 L/E/sec Wuv6560-%Pred-Pre 64 L/E/sec Zdm8065-PXD 1.00 L/E/sec ExpTime-Pre 8.54 sec Mbe6lhe1-Mmhq 80 % Jaj9ahn8-Hqc 77 % Ujv9mti0-%Pred-Pre 95 % Zot5idj3-GMW 71 % 1 Units are mL/min/1.73 m2 Chronic Kidney Disease Staging per NKF: Stage I & II GFR >=60 Normal to Mildly Decreased Stage III GFR 30-59 Moderately Decreased Stage IV GFR 15-29 Severely Decreased Stage V GFR <15 Very Little GFR Left ESRD GFR <15 on CAREER CENTER DIRECTOR 2 THE CEA ASSAY IS PERFORMED O N THE Cinegif BY CHEMILUMINESCENCE AND SHOULD NOT BE COMPARED [...] 1448 Procedures Date Code Description Status 02/23/2021 52011 Office/Outpatient Established Lo w MDM 20-29 Min Completed 12/16/2020 31700 Office/Outpatient New Moderate M DM 45-59 Minutes Completed 12/16/2020 63443 Spirometry Completed 11/11/2020 84342 Office/Outpatient Established Lo w MDM 20-29 Min Completed Medical Devices Description No Information Available Encounters Type Date Location Provider Dx Diagnosis Office Visit 02/23/2021 12:30p [facility] Ivory To marietta, A.N.P. R91.8 Other nonspecific abnormal finding of lynette ng Z87.891 Personal history of nicotine dependence Office Visit 12/16/2020 10:00a [facility] Ivory To marietta, A.N.P. R91.8 Other nonspecific abnormal finding of lynette ng F17.218 Nicotine dependence, cigaret yaima, w oth disorders Office Visit 11/11/2020 10:00a [facility] Pra maty Dacosta M.D. K58.2 Mixed irritable bowel syndro co Z12.11 Encounter for screening for malignant neoplasm [...] 08/30/2021 11:30 am - Jolie Blackwell.N.P. at [facility] 02/23/2021 - Ivory Daniel A.N.P.* R91.8 [...] for segmental resection. thank you. Scheduled 05/03/20 [facility] [address] [facility] [address] [place], [place] [address] [phone] Radiology/Procedure 47048 Closed 02/15/2021 Ivory Daniel A.N.P. ABNORMAL LDCT Closed 12/16/2020 [facility] [address] [place], [place] [address] [phone]
--- OUTSIDE RECORDS SUMMARY | 2021-05-25 07:01 | CCD | Continuity of Care Document ---
Author Author Diane JACOB M.D. Organization Unknown Address [address] [facility], [address] [place] [address] Phone [phone] Care Team Providers Care Folder Stitcher Operator Name Role Phone Blanca Torres P.A.-C AUTM [phone] AUTM Unavailable Woody Dacosta M.D. AUTM [...] 10tasophie Dacosta M.D. 04/19 - 05/03/2021 Sutab [id number] Tablets follow the instruction provided. drink plenty [...] 4karuna Dacosta M.D. 03/22/2021 - 05/03/2021 Sutab [id number] Tablets follow the instruction provided. drink plenty [...] lb BMI (Body Mass Index) 22.5 kg/m2 [place] Body Weight 125 lb Weight 61.293 kg BSA (Body Surface Area) 1.67 m2 05/03/2021 2:28pm BP Systolic 130 mmHg BP Diastolic 76 mmHg Body Temperature 96.0 F Height 65 inches 5'5" Weight 135.00 lb BMI (Body Mass Index) 22.5 kg/m2 [place] Body Weight 125 lb Weight 61.236 kg BSA (Body Surface Area) 1.67 m2 Results Test Acquired Date Facility Test Result H/L Range Note BUN & Creatinine ([facility]) 04/27/2021 [facility] Main Lab [address] [place], [place] [id number] [phone] Blood Urea Nitrogen 5 mg/dL Low 7-18 Creatinine With GFR 04/27/2021 [facility] nter Main Lab [address] [place] [phone] Creatinine For GFR 0.90 mg/dL Normal 0.55-1.30 Glomerular Filtration Rate > 60.0 Normal >45 1 Laboratory test finding 04/27/2021 [facility] Main Lab [address] [place] [address] [phone] Carcinoembryonic Antigen 2.2 NG/ML Normal <2.5 2 Laboratory test finding 04/19/2021 [facility] Main Lab [address] [place], [place] [address] [phone] Pathology Request For Service (SEE NOTE) 3 FVL/Jemal 12/16/2020 Medgraphics PDFReport SEE IMAGE FVC-Pred 3.34 L FVC-Pre 2.92 L FVC-%Pred-Pre 87 L FVC-LLN 2.63 L Fev1-Pred 2.57 L Fev1-Pre 2.14 L Fev1-%Pred-Pre 83 L Fev1-LLN 1.96 L Fev6-Pred 3.22 L Fev6-Pre 2.80 L Fev6-%Pred-Pre 86 L Fev6-LLN 2.52 L Kld1ufq-Cyyr 77 % Ida5fed-Qjb 73 % Brs2zsl-%Pred-Pre 94 % Zyr7ugp-IXP 68 % Qyj4iuz-Adjx 96 % Ugw5ylz-Igk 96 % Kmz2jhq-%Pred-Pre 99 % FEFMax-Pred 6.28 L/E/sec FEFMax-Pre 5.40 L/E/sec FEFMax-%Pred-Pre 86 L/E/sec FEFMax-LLN 4.51 L/E/sec Scg6113-Jyas 2.28 L/E/sec Yud1688-Qjh 1.48 L/E/sec Yvk3829-%Pred-Pre 64 L/E/sec Xtx6884-SEK 1.00 L/E/sec ExpTime-Pre 8.54 sec Aub8acb4-Czuo 80 % Aez6dke8-Hmc 77 % Qxb1qin0-%Pred-Pre 95 % Umr2onw0-QFA 71 % 1 Units are mL/min/1.73 m2 Chronic Kidney Disease Staging per NKF: Stage I & II GFR >=60 Normal to Mildly Decreased Stage III GFR 30-59 Moderately Decreased Stage IV GFR 15-29 Severely Decreased Stage V GFR <15 Very Little GFR Left ESRD GFR <15 on WEB SUPPORT ENGINEER 2 THE CEA ASSAY IS PERFORMED O N THE [facility] BY CHEMILUMINESCENCE AND SHOULD NOT BE COMPARED [...] 1448 Procedures Date Code Description Status 02/23/2021 46331 Office/Outpatient Established Lo w MDM 20-29 Min Completed 12/16/2020 40585 Office/Outpatient New Moderate M DM 45-59 Minutes Completed 12/16/2020 42040 Spirometry Completed 11/11/2020 12006 Office/Outpatient Established Lo w MDM 20-29 Min Completed Medical Devices Description No Information Available Encounters Type Date Location Provider Dx Diagnosis Office Visit 02/23/2021 12:30p [facility] Ivory To marietta, A.N.P. R91.8 Other nonspecific abnormal finding of lynette aleyda song Z87.891 Personal history of nicotine dependence Office Visit 12/16/2020 10:00a [facility] Ivory To marietta, A.N.P. R91.8 Other nonspecific abnormal finding of lynette ng F17.218 Nicotine dependence, cigaret yaima, w oth disorders Office Visit 11/11/2020 10:00a [facility] Pra maty Dacosta M.D. K58.2 Mixed irritable bowel syndro al Z12.11 Encounter for screening for malignant neoplasm [...] 8:30 am - Judson Jacob M.D. at [facility] * 08/30/2021 11:30 am - Maricel Blackwell at [facility] 05/12/2021 - Judson Jacob M.D.* D37.5 [...] for segmental resection. thank you. Scheduled 05/03/20 [facility] [address] [facility] [address] [place], [place] [address] [phone] Radiology/Procedure [id number] Closed 02/15/2021 Ivory Daniel A.N.P. ABNORMAL LDCT Closed 12/16/2020 [facility] [address] [place], [place] [address] [phone]
--- OUTSIDE RECORDS SUMMARY | 2021-05-25 07:01 | CCD | Continuity of Care Document ---
Author Author Diane JACOB M.D. Organization Unknown Address [address] [place] [address], [address] [place] [address] Phone [phone] Care Team Providers Care Disease Management Nurse Name Role Phone Blanca Torres P.A.-C AUTM [phone] AUTM Unavailable Woody Dacosta M.D. AUTM [...] total course for 3 days 6tabs Woody Dacotsa M.D. 03/27 - 05/03/2021 Metronidazole 500mg Tablets 1 tablet 3 times a day for total course of 3 days. ( take after eating food to prevent stomach upset) . 10tasophie Dacosta M.D. 04/19 - 05/03/2021 Sutab [id number] Tablets follow the instruction provided. drink plenty [...] 4karuna Dacosta M.D. 03/22/2021 - 05/03/2021 Sutab [id number] Tablets follow the instruction provided. drink plenty [...] lb BMI (Body Mass Index) 22.5 kg/m2 [place] Body Weight 125 lb Weight 61.236 kg BSA (Body Surface Area) 1.67 m2 02/23/2021 12:17pm BP Systolic 128 mmHg BP Diastolic 82 mmHg Heart Rate 73 /min O2 % BldC Oximetry 97 % Height 65 inches 5'5" Weight 135.00 lb BMI (Body Mass Index) 22.5 kg/m2 [place] Body Weight 125 lb Weight 61.236 kg BSA (Body Surface Area) 1.67 m2 Results Test Acquired Date Facility Test Result H/L Range Note BUN & Creatinine ([facility]) 04/27/2021 [facility] Main Lab [address] [place] [address] [phone] Blood Urea Nitrogen 5 mg/dL Low 7-18 Creatinine With GFR 04/27/2021 [facility] nt Main Lab [address] [place] [address] [phone] Creatinine For GFR 0.90 mg/dL Normal 0.55-1.30 Glomerular Filtration Rate > 60.0 Normal >45 1 Laboratory test finding 04/27/2021 [facility] Main Lab [address] [place] [address] [phone] Carcinoembryonic Antigen 2.2 NG/ML Normal <2.5 2 Laboratory test finding 04/19/2021 [facility] Main Lab [address] [place] [address] [phone] Pathology Request For Service (SEE NOTE) 3 FVL/Jemal 12/16/2020 Medgraphics PDFReport SEE IMAGE FVC-Pred 3.34 L FVC-Pre 2.92 L FVC-%Pred-Pre 87 L FVC-LLN 2.63 L Fev1-Pred 2.57 L Fev1-Pre 2.14 L Fev1-%Pred-Pre 83 L Fev1-LLN 1.96 L Fev6-Pred 3.22 L Fev6-Pre 2.80 L Fev6-%Pred-Pre 86 L Fev6-LLN 2.52 L Ywq8xrr-Mxxi 77 % Gpm6uhy-Auj 73 % Mhq4yzy-%Pred-Pre 94 % Aeg2dqu-ZJP 68 % Yzj1cvu-Nhwa 96 % Prr1rdi-Gqs 96 % Ezs1exw-%Pred-Pre 99 % FEFMax-Pred 6.28 L/E/sec FEFMax-Pre 5.40 L/E/sec FEFMax-%Pred-Pre 86 L/E/sec FEFMax-LLN 4.51 L/E/sec Ijt7776-Eoow 2.28 L/E/sec Kgk6391-Sdk 1.48 L/E/sec Eft7010-%Pred-Pre 64 L/E/sec Dlm9868-DPP 1.00 L/E/sec ExpTime-Pre 8.54 sec Hph3hub1-Hhwg 80 % Isb3kjw0-Rik 77 % Sfm3nub1-%Pred-Pre 95 % Zvn4mau5-XJI 71 % 1 Units are mL/min/1.73 m2 Chronic Kidney Disease Staging per NKF: Stage I & II GFR >=60 Normal to Mildly Decreased Stage III GFR 30-59 Moderately Decreased Stage IV GFR 15-29 Severely Decreased Stage V GFR <15 Very Little GFR Left ESRD GFR <15 on CURBER 2 THE CEA ASSAY IS PERFORMED O N THE InitMe BY CHEMILUMINESCENCE AND SHOULD NOT BE COMPARED [...] 1448 Procedures Date Code Description Status 02/23/2021 79201 Office/Outpatient Established Lo w MDM 20-29 Min Completed 12/16/2020 73202 Office/Outpatient New Moderate M DM 45-59 Minutes Completed 12/16/2020 00989 Spirometry Completed 11/11/2020 48601 Office/Outpatient Established Lo w MDM 20-29 Min Completed Medical Devices Description No Information Available Encounters Type Date Location Provider Dx Diagnosis Office Visit 02/23/2021 12:30p [facility] Ivory To marietta, A.N.P. R91.8 Other nonspecific abnormal finding of lynette ng Z87.891 Personal history of nicotine dependence Office Visit 12/16/2020 10:00a [facility] Ivory To marietta, A.N.P. R91.8 Other nonspecific abnormal finding of lynette ng F17.218 Nicotine dependence, cigaret yaima, w oth disorders Office Visit 11/11/2020 10:00a [facility] Pra maty Dacosta M.D. K58.2 Mixed irritable bowel syndro ak Z12.11 Encounter for screening for malignant neoplasm [...] 08/30/2021 11:30 am - Jolie Blackwell.N.P. at [facility] 02/23/2021 - Ivory Daniel A.N.P.* R91.8 [...] for segmental resection. thank you. Scheduled 05/03/20 [facility] [address] [facility] [address] [place], [place] [address] [phone] Radiology/Procedure [id number] Closed 02/15/2021 Ivory Daniel A.N.P. ABNORMAL LDCT Closed 12/16/2020 [facility] Pulmonary [address] [place], [place] [address] [phone]
--- OUTSIDE RECORDS SUMMARY | 2021-05-25 07:01 | CCD | Continuity of Care Document ---
Author Author Diane JACOB M.D. Organization Unknown Address [address] [place] [address], [address] [place] [address] Phone [phone] Care Team Providers Care Bedspring Assembler Name Role Phone Blanca Torres P.A.-C AUTM [...] 10tasophie Dacosta M.D. 04/19 - 05/03/2021 Sutab [id number] Tablets follow the instruction provided. drink plenty [...] 4karuna Dacosta M.D. 03/22/2021 - 05/03/2021 Sutab [id number] Tablets follow the instruction provided. drink plenty [...] lb BMI (Body Mass Index) 22.5 kg/m2 [place] Body Weight 125 lb Weight 61.236 kg BSA (Body Surface Area) 1.67 m2 02/23/2021 12:17pm BP Systolic 128 mmHg BP Diastolic 82 mmHg Heart Rate 73 /min O2 % BldC Oximetry 97 % Height 65 inches 5'5" Weight 135.00 lb BMI (Body Mass Index) 22.5 kg/m2 [place] Body Weight 125 lb Weight 61.236 kg BSA (Body Surface Area) 1.67 m2 Results Test Acquired Date Facility Test Result H/L Range Note BUN & Creatinine ([facility]) 04/27/2021 [facility] Main Lab [address] [place] [address] [phone] Blood Urea Nitrogen 5 mg/dL Low 7-18 Creatinine With GFR 04/27/2021 [facility] nt Main Lab [address] [place] [address] [phone] Creatinine For GFR 0.90 mg/dL Normal 0.55-1.30 Glomerular Filtration Rate > 60.0 Normal >45 1 Laboratory test finding 04/27/2021 [facility] Main Lab [address] [place] [address] [phone] Carcinoembryonic Antigen 2.2 NG/ML Normal <2.5 2 Laboratory test finding 04/19/2021 [facility] Main Lab [address] [place] [address] [phone] Pathology Request For Service (SEE NOTE) 3 FVL/Jemal 12/16/2020 Medgraphics PDFReport SEE IMAGE FVC-Pred 3.34 L FVC-Pre 2.92 L FVC-%Pred-Pre 87 L FVC-LLN 2.63 L Fev1-Pred 2.57 L Fev1-Pre 2.14 L Fev1-%Pred-Pre 83 L Fev1-LLN 1.96 L Fev6-Pred 3.22 L Fev6-Pre 2.80 L Fev6-%Pred-Pre 86 L Fev6-LLN 2.52 L Sex8ial-Vclp 77 % Lqv8lao-Ynf 73 % Jdr3xns-%Pred-Pre 94 % Toa9evp-DJY 68 % Kwl7kys-Jyvw 96 % Jkh8gwz-Kkz 96 % Ufj2gmr-%Pred-Pre 99 % FEFMax-Pred 6.28 L/E/sec FEFMax-Pre 5.40 L/E/sec FEFMax-%Pred-Pre 86 L/E/sec FEFMax-LLN 4.51 L/E/sec Ghm9604-Zxwy 2.28 L/E/sec Ebv6442-Rmz 1.48 L/E/sec Vht5614-%Pred-Pre 64 L/E/sec Zto8554-ONF 1.00 L/E/sec ExpTime-Pre 8.54 sec Tom1ybv8-Gwyp 80 % Tjg3ghy7-Fjh 77 % Qtc9pkl3-%Pred-Pre 95 % Iyq9hop7-CZS 71 % 1 Units are mL/min/1.73 m2 Chronic Kidney Disease Staging per NKF: Stage I & II GFR >=60 Normal to Mildly Decreased Stage III GFR 30-59 Moderately Decreased Stage IV GFR 15-29 Severely Decreased Stage V GFR <15 Very Little GFR Left ESRD GFR <15 on APPRAISER 2 THE CEA ASSAY IS PERFORMED O N THE cfgAdvance BY CHEMILUMINESCENCE AND SHOULD NOT BE COMPARED [...] 1448 Procedures Date Code Description Status 02/23/2021 70778 Office/Outpatient Established Lo w MDM 20-29 Min Completed 12/16/2020 35986 Office/Outpatient New Moderate M DM 45-59 Minutes Completed 12/16/2020 53849 Spirometry Completed 11/11/2020 14870 Office/Outpatient Established Lo w MDM 20-29 Min Completed Medical Devices Description No Information Available Encounters Type Date Location Provider Dx Diagnosis Office Visit 02/23/2021 12:30p [facility] Ivory To marietta, A.N.P. R91.8 Other nonspecific abnormal finding of lynette ng Z87.891 Personal history of nicotine dependence Office Visit 12/16/2020 10:00a [facility] Ivory To marietta, A.N.P. R91.8 Other nonspecific abnormal finding of lynette ng F17.218 Nicotine dependence, cigaret yaima, w oth disorders Office Visit 11/11/2020 10:00a [facility] Pra maty Dacosta M.D. K58.2 Mixed irritable bowel syndro il Z12.11 Encounter for screening for malignant neoplasm [...] 08/30/2021 11:30 am - Jolie Blackwell.N.P. at [facility] 02/23/2021 - Ivory Daniel A.N.P.* R91.8 [...] for segmental resection. thank you. Scheduled 05/03/20 [facility] [address] [facility] [address] [place], [place] [address] [phone] Radiology/Procedure 22640 Closed 02/15/2021 Ivory Daniel A.N.P. ABNORMAL LDCT Closed 12/16/2020 [facility] Pulmonary [address] [place], [place] [address] [phone]
--- OUTSIDE RECORDS SUMMARY | 2021-05-25 07:02 | CCD ---
Author Author [facility] Address Unknown Phone Unavailable Care Team Providers Care Manager Client Service Name Role Phone Fredy, L Ivory LINEN AIDE Unavailable Unavailable Fredy, L Ivory LINEN AIDE Unavailable Unavailable Fredy, L Ivory LINEN AIDE Unavailable Unavailable Fredy, L Ivory LINEN AIDE Unavailable Unavailable Fredy, L Ivory LINEN AIDE Unavailable Unavailable Fredy, L Ivory LINEN AIDE Unavailable Unavailable Fredy, L Ivory LINEN AIDE Unavailable Unavailable Fredy, L Ivory LINEN AIDE Unavailable Unavailable Fredy, L Ivory LINEN AIDE Unavailable Unavailable Fredy, L Ivory LINEN AIDE Unavailable Unavailable Fredy, L Ivory LINEN AIDE Unavailable Unavailable Fredy, L Ivory LINEN AIDE Unavailable Unavailable Fredy, L Ivory LINEN AIDE Unavailable Unavailable Fredy, L Ivory LINEN AIDE Unavailable Unavailable Fredy, L Ivory LINEN AIDE Unavailable Unavailable Fredy, L Ivory LINEN AIDE Unavailable Unavailable Fredy, L Ivory LINEN AIDE Unavailable Unavailable Fredy, L Ivory LINEN AIDE Unavailable Unavailable Fredy, L Ivory LINEN AIDE Unavailable Unavailable Fredy, L Ivory LINEN AIDE Unavailable Unavailable Fredy, L Ivory LINEN AIDE Unavailable Unavailable Fredy, L Ivory LINEN AIDE Unavailable Unavailable Fredy, L Ivory LINEN AIDE Unavailable Unavailable Fredy, L Ivory LINEN AIDE Unavailable Unavailable Fredy, L Ivory LINEN AIDE Unavailable Unavailable Chi Mckee MD Unavailable Unavailable [...] Unavailable Chi Mckee MD Unavailable Unavailable Chi cMkee MD Unavailable Unavailable Chi Mckee MD Unavailable [...] IN, NOT IN PROVIDER Unavailable Unavailable Fahsel LINEN AIDE, LINEN AIDE L Jeanna LINEN AIDE Unavailable + 24 Fahsel LINEN AIDE, LINEN AIDE L Jeanna LINEN AIDE Unavailable + 24 Fahsel LINEN AIDE, LINEN AIDE L Jeanna LINEN AIDE Unavailable + 24 Fahsel LINEN AIDE, LINEN AIDE L Jeanna LINEN AIDE Unavailable + 24 Fahsel LINEN AIDE, LINEN AIDE L Jeanna LINEN AIDE Unavailable + 24 Fahsel LINEN AIDE, LINEN AIDE L Jeanna LINEN AIDE Unavailable + 24 Fahsel LINEN AIDE, LINEN AIDE L Jeanna LINEN AIDE Unavailable + 24 Fahsel LINEN AIDE, LINEN AIDE L Jeanna LINEN AIDE Unavailable + 24 Fahsel LINEN AIDE, LINEN AIDE L Jeanna LINEN AIDE Unavailable + 24 Fahsel LINEN AIDE, LINEN AIDE L Jeanna LINEN AIDE Unavailable + 24 Fahsel LINEN AIDE, LINEN AIDE L Jeanna LINEN AIDE Unavailable + 24 Fahsel LINEN AIDE, LINEN AIDE L Jeanna LINEN AIDE Unavailable + 24 Fahsel LINEN AIDE, LINEN AIDE L Jeanna LINEN AIDE Unavailable + 24 Fahsel LINEN AIDE, LINEN AIDE L Jeanna LINEN AIDE Unavailable + 24 Fahsel LINEN AIDE, LINEN AIDE L Jeanna LINEN AIDE Unavailable + 24 Fahsel LINEN AIDE, LINEN AIDE L Jeanna LINEN AIDE Unavailable + 24 Fahsel LINEN AIDE, LINEN AIDE L Jeanna LINEN AIDE Unavailable + 24 Fahsel LINEN AIDE, LINEN AIDE L Jeanna LINEN AIDE Unavailable + 24 Fahsel LINEN AIDE, LINEN AIDE L Jeanna LINEN AIDE Unavailable + 24 Fahsel LINEN AIDE, LINEN AIDE L Jeanna LINEN AIDE Unavailable + 24 Fahsel LINEN AIDE, LINEN AIDE L Jeanna LINEN AIDE Unavailable + 24 Fahsel LINEN AIDE, LINEN AIDE L Jeanna LINEN AIDE Unavailable + 24 Fahsel LINEN AIDE, LINEN AIDE L Jeanna LINEN AIDE Unavailable + 24 CECIL O JACOB BENEDICT Unavailable Unavailable CECIL, O JACOB BENEDICT Unavailable Unavailable CECIL, O JACOB BENEDICT Unavailable Unavailable CECIL, O JACOB BENEDICT Unavailable Unavailable CECIL, O JACOB BENEDICT Unavailable Unavailable CECIL, O JACOB BENEDICT Unavailable Unavailable CECIL, O JACOB BENEDICT Unavailable Unavailable CECIL, O JACOB BENEDICT Unavailable Unavailable CECIL, O JACOB BENEDICT Unavailable Unavailable CECIL, O JACOB BENEDICT Unavailable Unavailable CECIL, O JACOB BENEDICT Unavailable Unavailable CECIL, O JACOB BENEDICT Unavailable Unavailable CECIL, O JACOB BENEDICT Unavailable Unavailable CECIL, O JACOB BENEDICT Unavailable Unavailable CECIL, O JACOB BENEDICT Unavailable Unavailable CECIL, O JACOB BENEDICT Unavailable Unavailable CECIL, O JACOB BENEDICT Unavailable Unavailable CECIL, O JACOB BENEDICT Unavailable Unavailable CECIL, O JACOB BENEDICT Unavailable Unavailable CECIL, O JACOB BENEDICT Unavailable Unavailable CECIL, O JACOB BENEDICT Unavailable Unavailable CECIL, O JACOB BENEDICT Unavailable Unavailable CECIL, O JACOB BENEDICT Unavailable Unavailable CECIL, O JACOB BENEDICT Unavailable Unavailable CECIL, O JACOB BENEDICT Unavailable Unavailable CECIL, O JACOB BENEDICT Unavailable Unavailable CECIL, O JACOB BENEDICT Unavailable Unavailable CECIL, O JACOB BENEDICT Unavailable Unavailable CECIL, O JACOB BENEDICT Unavailable Unavailable CECIL, O JACOB BENEDICT Unavailable Unavailable CECIL, O JAOCB BENEDICT Unavailable Unavailable CECIL, O JACOB BENEDICT Unavailable Unavailable CECIL, O JACOB BENEDICT Unavailable Unavailable CECIL, O JACOB BENEDICT Unavailable Unavailable CECIL, O JACOB BENEDICT Unavailable Unavailable CECIL, O JACOB BENEDICT Unavailable Unavailable CECIL, O JACOB BENEDICT Unavailable Unavailable CECIL, O JACOB BENEDICT Unavailable Unavailable CECIL, O JACOB BENEDICT Unavailable Unavailable CECIL, O JACOB BENEDICT Unavailable Unavailable CECIL, O JACOB BENEDCIT Unavailable Unavailable CECIL, O JACOB BENEDICT Unavailable Unavailable Edwin JACOB MD Unavailable Unavailable Edwin JACOB MD Unavailable Unavailable Edwin JACOB MD Unavailable Unavailable Torres, Charlotte Blanca PA Unavailable [...] Charlotte Blanca PA Unavailable Unavailable Torres, Charlotte Lbanca PA Unavailable Unavailable Torres, Charlotte Blanca PA [...] Unavailable Torres, Charlotte Blanca PA Unavailable Unavailable Charlotte Torres PA Unavailable Unavailable Charlotte Torres PA Unavailable Unavailable Eduardo GUNN Unavailable Unavailable [...] Unavailable Unavailable Derrick HARRIS MD Unavailable Unavailable Chand, Woodbridge Fadumo Unavailable Unavailable Chand, [place] Fadumo Unavailable Unavailable Chand, [place] Fadumo Unavailable Unavailable Chand, [place] Fadumo Unavailable Unavailable Chand, [place] Fadumo Unavailable Unavailable Chand, [place] Fadumo Unavailable Unavailable Chand, [place] Fadumo Unavailable Unavailable Chand, [place] Fadumo Unavailable Unavailable Chand, [place] Fadumo Unavailable Unavailable Chand, [place] Fadumo Unavailable Unavailable Chand, [place] Fadumo Unavailable Unavailable Chand, [place] Fadumo Unavailable Unavailable Chand, Sharon Fadumo Unavailable Unavailable Re-disclosure Warning The records [...] is protected by Article 27-F of the [facility] Public Health law. If you continue you may have access to information: Regarding HIV / AIDS; Provided by facilities licensed or operated by the [facility] Office of Mental Health; or Provided by the [facility] Office for People With Developmental Disabilities. If such information is present, then the following [facility] mandated warning applies: This information has been [...] law may result in a fine or mcc sentence or both. A general authorization for the release of medical or other information is NOT sufficient authorization for further disc losure. Allergies and Adverse Reactions Type Description Substance Reaction Status Data Source(s ) Allergy to substance Allergy to substance Allergy to substance [facility] ([facility]) Allergy to substance Allergy to substance Allergy to substance [facility] ([facility]) Encounters Encounter Providers Location Date Indications Data Source(s ) Outpatient Attender: JACOB Romero/Paty/Max/Re indl 05/12/2021 01:45:00 PM EST [facility] Outpatient Attender: Ivory Romero/Paty/Max/Reindl 02/23/2021 12:30:00 PM EDT [facility] Unknown [address] [facility] [address] 02/03/2021 12:00:00 AM EDT eCW1 ([facility]) Outpatient Attender: CONTRERAS Gunn NPAttender: JEANNA GUNNReferrer: JEANNA GUNN 01/05/2021 12:00:00 AM EDT [facility] Outpatient Referrer: JEANNA GUNN 01/05/2021 12:00:00 AM EDT [facility] Outpatient Attender: Ivory Romero/Paty/Max/Reindl 12/16/2020 10:00:00 AM EDT [facility] ([facility]) [place] [address] [facility] [address] 11/17/2020 12:00:00 AM EDT eCW1 ([facility]) Outpatient Attender: LUIS Romero/Paty/Ang el/Reindl 11/11/2020 10:00:00 AM EDT [facility] ([facility]) Outpatient [address] [facility] [address] 10/05/2020 12:00:00 AM EDT eCW1 ([facility]) Outpatient [address] [facility] [address] 09/28/2020 12:00:00 AM EDT eCW1 ([facility]) Blas Mckee MD: [address] [place] [phone], Ph. Attender: Blas Mckee MD [facility] Medical 09/21/2020 12:00:00 AM EDT [facility] ([facility]) Unknown [address] [facility] [address] 09/04/2020 12:00:00 AM EST eCW1 ([facility]) [place] [address] [facility] [address] 09/03/2020 12:00:00 AM EST eCW1 ([facility]) SHANNON WoodC: [address] [place] [address], Ph. Attender: Fadumo Chand [facility] Medical 08/26/2020 12:00:00 AM EST CON[facility] ([facility]) SHANNON WoodC: [address] [place] [address], Ph. Attender: Fadumo Chand [facility] Medical 08/26/2020 12:00:00 AM EST [facility] ([facility]) Outpatient Referrer: JEANNA GUNN 07/20/2020 12:00 :00 AM EST Other abnormal and inconclusive findings on diagnostic imaging of [facility] Other abnormal and inconclusive findings on diagnostic imaging of breast Outpatient Referrer: JEANNA GUNN 07/20/2020 12:00 :00 AM EST Other abnormal and inconclusive findings on diagnostic imaging of [facility] Other abnormal and inconclusive findings on diagnostic imaging of breast Outpatient Attender: JEANNA Caldweller: JEANNA GUNN [id number] 07/20/2020 12:00:00 AM EST Other abnormal and inconclusive findings on diagnostic imaging of [facility] Other abnormal and inconclusive findings on diagnostic imaging of breast Outpatient Referrer: JEANNA GUNN 07/16/2020 12:00:00 AM [facility] Outpatient Attender: JEANNA GUNNRefseraer: PRISCILLA VASQUEZ 07/16/2020 12:00:00 AM [facility] Unknown [address] [facility] [address] 07/09/2020 12:00:00 AM EST eCW1 ([facility]) Unknown [address] [facility] [address] 07/06/2020 12:00:00 AM EST eCW1 ([facility]) Outpatient Attender: Blanca Coronado: Blanca MUKHERJEE 07/02/2020 09:00:00 AM EST [facility] Unknown [address] [facility] [address] 07/02/2020 12:00:00 AM EST [facility] [place] [address] [facility] [address] 07/01/2020 12:00:00 AM EST [facility] [place] [address] [facility] [address] 06/22/2020 12:00:00 AM EST [facility] [place] [address] [facility] [address] 06/11/2020 12:00:00 AM EST [facility] [place] [address] [facility] [address] 06/11/2020 12:00:00 AM EST [facility] ([facility]) [place] [address] [facility] [address] 06/08/2020 12:00:00 AM EST [facility]) Outpatient [address] [facility] [address] 06/04/2020 12:00:00 AM EST [facility] ([facility]) [place] [address] [facility] [address] 05/13/2020 12:00:00 AM EST [facility]CW1 [facility]) Immunizations Vaccine Date Status Description Data Source(s) COVID-19 VACCINE Moderna 05/22/2021 12:00:00 AM EST completed [facility] Vaccine Series Complete: YESThis Data wa s Submitted to [facility] Via [employer]. COVID-19, mRNA, LNP-S, PF, 100 mcg/0.5 mL dose 09/21/2020 05 :28:39 PM EDT completed .5 mL [facility] ([facility]) COVID-19 VACCINE Moderna 09/21/2020 12:00:00 AM EDT completed [facility] Vaccine Series Complete: YESThis Data wa s Submitted to [facility] Via Email[employer]. COVID-19, mRNA, LNP-S, PF, 100 mcg/0.5 mL dose 08/26/2020 02 :53:56 PM EST completed 10.5 mL [facility]ZA ([facility]) COVID-19, mRNA, LNP-S, PF, 100 mcg/0.5 mL dose 08/26/2020 02 :53:56 PM EST completed .5 mL [facility]) COVID-19 VACCINE Moderna 08/26/2020 12:00:00 AM EST completed [employer] Vaccine Series Complete: NOThis Data was Submitted to [facility] Via [employer]. Medications Medication Brand Name Start Date Product Form Dose Route Admi nistrative Instructions Pharmacy Instructions Status Indications Reaction Description Data Source(s) Metronidazole 500 MG Oral Tablet [Flagyl] Flagyl 05/13/2021 12:00 :00 AM EST ORAL active MEDENT ([facility], ) Neomycin Sulfate 500 MG Oral Tablet Neomycin Sulfate 05/13/2021 12:00:00 AM EST ORAL active MEDENT ( [facility], ) POLYETHYLENE GLYCOL 3350 142 MG/ML Oral Solution [Miralax] M iralax 05/13/2021 12:00:00 AM EST active M EDENT ([facility], ) Ciprofloxacin 500 MG Oral Tablet Ciprofloxacin HCL 04/19/2021 12:00 :00 AM EDT ORAL completed MEDENT ([facility], ) Metronidazole 500 MG Oral Tablet Metronidazole 04/19/2021 12:00:00 AM EDT completed MEDENT ([facility], ) Bisacodyl 5 MG Delayed Release Oral Tablet [Dulcolax] Dulcol ax 03/22/2021 12:00:00 AM EDT completed MEDENT ([facility], ) POLYETHYLENE GLYCOL 3350 105 MG/ML / Pot assium Chloride 0.80946 MEQ/ML / Sodium Bicarbonate 0.017 MEQ/ML / Sodium Chloride 0.0479 MEQ/ML Oral Solution [GaviLyte-N] Gavilyte-N With Flavor Pack 03/22/2021 12:00:00 AM EDT completed MEDENT ([facility], ) Clenpiq Clenpiq 03/22/2021 12:00:00 AM EDT complet ed MEDENT ([facility], ) Sutab Sutab 03/22/2021 12:00:00 AM EDT completed MEDENT ([facility], ) Sutab Sutab 11/11/2020 12:00:00 AM EDT completed MEDENT ([facility], ) POLYETHYLENE GLYCOL 3350 142 MG/ML Oral Solution [Miralax] M iralax 11/11/2020 12:00:00 AM EDT completed MEDENT ([facility], ) Vitamin D3 125 MCG (5000 UT) Vitamin D3 125 MCG (5000 UT) 12:00:00 AM EDT active Vitamin D3 125 MC G (5000 UT) eCW1 ([facility]) Vitamin D3 125 MCG (5000 UT) Vitamin D3 125 MCG (5000 UT) 12:00:00 AM EDT active Vitamin D3 125 MC G (5000 UT) eCW1 ([facility]) Vitamin D3 125 MCG (5000 UT) Vitamin D3 125 MCG (5000 UT) 12:00:00 AM EDT active Vitamin D3 125 MC G (5000 UT) eCW1 ([facility]) Vitamin D3 125 MCG (5000 UT) Vitamin D3 125 MCG (5000 UT) 12:00:00 AM EDT active Vitamin D3 125 MC G (5000 UT) eCW1 ([facility]) Cephalexin 500 MG Oral Tablet Cephalexin 500 MG 06/08/2020 12:00:00 AM EST 1.0 {tablet} active Cephalexin 500 MG eCW1 ([facility]) Cephalexin 500 MG Oral Tablet Cephalexin 500 MG 06/08/2020 12:00:00 AM EST 1.0 {tablet} suspended Cephalexin 500 MG eC W1 ([facility]) Cephalexin 500 MG Oral Tablet Cephalexin 500 MG 06/08/2020 12:00:00 AM EST 1.0 {tablet} active Cephalexin 500 MG eCW1 ([facility]) Cephalexin 500 MG Oral Tablet Cephalexin 500 MG 06/08/2020 12:00:00 AM EST 1.0 {tablet} active Cephalexin 500 MG eCW1 ([facility]) Cephalexin 500 MG Oral Tablet Cephalexin 500 MG 06/08/2020 12:00:00 AM EST 1.0 {tablet} active Cephalexin 500 MG eCW1 ([facility]) Cephalexin 500 MG Oral Tablet Cephalexin 500 MG 06/08/2020 12:00:00 AM EST 1.0 {tablet} active Cephalexin 500 MG eCW1 ([facility]) Cephalexin 500 MG Oral Tablet Cephalexin 500 MG 06/08/2020 12:00:00 AM EST 1.0 {tablet} active Cephalexin 500 MG eCW1 ([facility]) Cephalexin 500 MG Oral Tablet Cephalexin 500 MG 06/08/2020 12:00:00 AM EST 1.0 {tablet} active Cephalexin 500 MG eCW1 ([facility]) Cephalexin 500 MG Oral Tablet Cephalexin 500 MG 06/08/2020 12:00:00 AM EST 1.0 {tablet} suspended Cephalexin 500 MG eC W1 ([facility]) Cephalexin 500 MG Oral Tablet Cephalexin 500 MG 06/08/2020 12:00:00 AM EST 1.0 {tablet} active Cephalexin 500 MG eCW1 ([facility]) Cephalexin 500 MG Oral Tablet Cephalexin 500 MG 06/08/2020 12:00:00 AM EST 1.0 {tablet} active Cephalexin 500 MG eCW1 ([facility]) Cephalexin 500 MG Oral Tablet Cephalexin 500 MG 06/08/2020 12:00:00 AM EST 1.0 {tablet} suspended Cephalexin 500 MG eC W1 ([facility]) Cephalexin 500 MG Oral Tablet Cephalexin 500 MG 06/08/2020 12:00:00 AM EST 1.0 {tablet} suspended Cephalexin 500 MG eC W1 ([facility]) Cephalexin 500 MG Oral Tablet Cephalexin 500 MG 06/08/2020 12:00:00 AM EST 1.0 {tablet} active Cephalexin 500 MG eCW1 ([facility]) Cephalexin 500 MG Oral Tablet Cephalexin 500 MG 06/08/2020 12:00:00 AM EST 1.0 {tablet} active Cephalexin 500 MG eCW1 ([facility]) Insurance Providers Payer name Policy type / Coverage type Policy ID Covered alliance party ID Covered alliance party's relationship to blank Policy Blank Plan Information STATE INS [facility] W [id number] Self [id number] FORMERLY [facility] W [id number] Empl [id number] AETNA MEDICARE COMPLETE G [id number] Self [id number] AETNA MEDICARE [id number] SP [id number] MEDICAID [id number] SP [id number] AETNA MEDICARE COMPLETE G [id number] Self [id number] ANSI-Not a Secondary Insurance [id number] ANSI-Not a Secondary Insurance [id number] ANSI-Medicare Part B [id number] ANSI-Medicare Part B [id number] ANSI-Medicaid [id number] ANSI-Medicaid [id number] ANSI-Not a Secondary Insurance [id number] ANSI-Medicaid [id number] ANSI-Medicare Part B [id number] ANSI-Not a Secondary Insurance [id number] ANSI-Medicare Part B [id number] ANSI-Medicaid [id number] ANSI-Medicaid [id number] ANSI-Medicare Part B [id number] ANSI-Not a Secondary Insurance [id number] ANSI-Not a Secondary Insurance [id number] ANSI-Medicaid [id number] ANSI-Medicare Part B [id number] ANSI-Not a Secondary Insurance [id number] ANSI-Medicare Part B [id number] ANSI-Medicare Part B [id number] ANSI-Medicaid [id number] ANSI-Medicaid [id number] ANSI-Not a Secondary Insurance [id number] ANSI-Not a Secondary Insurance [id number] ANSI-Medicaid [id number] ANSI-Medicaid [id number] ANSI-Medicare Part B [id number] ANSI-Medicare Part B [id number] ANSI-Not a Secondary Insurance [id number] SELF PAY [id number] S [id number] FORMERLY [facility] [id number] S [id number] [employer] Supp[employer] [facility] [id number] S MEB [id number] [employer] MEDICAID [id number] S [id number] ANSI-Not a Secondary Insurance [id number] ANSI-Medicaid [id number] ANSI-Medicaid [id number] ANSI-Medicare Part B [id number] ANSI-Medicare Part B [id number] ANSI-Not a Secondary Insurance [id number] ANSI-Medicare Part B [id number] ANSI-Not a Secondary Insurance [id number] ANSI-Not a Secondary Insurance [id number] ANSI-Medicaid [id number] ANSI-Medicare Part B [id number] ANSI-Medicaid [id number] ANSI-Medicare Part B [id number] ANSI-Medicaid [id number] ANSI-Medicare Part B [id number] ANSI-Not a Secondary Insurance [id number] ANSI-Medicaid [id number] ANSI-Not a Secondary Insurance [id number] [id number] ANSI-Medicare Part B [id number] ANSI-Medicare Part B [id number] ANSI-Medicaid [id number] ANSI-Medicaid [id number] ANSI-Not a Secondary Insurance [id number] ANSI-Not a Secondary Insurance [id number] ANSI-Not a Secondary Insurance [id number] ANSI-Medicaid [id number] ANSI-Medicaid [id number] ANSI-Not a Secondary Insurance [id number] ANSI-Medicare Part B [id number] ANSI-Medicare Part B [id number] ANSI-Medicaid [id number] ANSI-Medicaid [id number] ANSI-Medicare Part B [id number] ANSI-Not a Secondary Insurance [id number] ANSI-Medicare Part B [id number] ANSI-Not a Secondary Insurance [id number] ANSI-Medicare Part B [id number] ANSI-Not a Secondary Insurance [id number] ANSI-Medicaid [id number] ANSI-Medicaid [id number] ANSI-Medicare Part B [id number] ANSI-Not a Secondary Insurance [id number] ANSI-Medicaid [id number] ANSI-Medicaid [id number] ANSI-Not a Secondary Insurance [id number] ANSI-Medicare Part B [id number] ANSI-Not a Secondary Insurance [id number] ANSI-Medicare Part B [id number] ANSI-Medicaid [id number] ANSI-Medicare Part B [id number] ANSI-Not a Secondary Insurance [id number] ANSI-Not a Secondary Insurance [id number] ANSI-Medicaid [id number] ANSI-Medicare Part B [id number] ANSI-Medicaid [id number] ANSI-Medicare Part B [id number] ANSI-Medicare Part B [id number] ANSI-Medicaid [id number] ANSI-Not a Secondary Insurance [id number]-[id number] ANSI-Not a Secondary Insurance [id number] ANSI-Not a Secondary Insurance [id number] ANSI-Medicaid [id number] ANSI-Not a Secondary Insurance [id number]-[id number] ANSI-Medicaid [id number] ANSI-Medicare Part B [id number] ANSI-Medicare Part B [id number] ANSI-Medicaid [id number] ANSI-Medicaid [id number] ANSI-Not a Secondary Insurance [id number] ANSI-Not a Secondary Insurance [id number] ANSI-Medicare Part B [id number] ANSI-Medicaid [id number] ANSI-Not a Secondary Insurance [id number] ANSI-Medicare Part B [id number] ANSI-Not a Secondary Insurance [id number] ANSI-Medicaid [id number] ANSI-Medicare Part B [id number] ANSI-Not a Secondary Insurance [id number] ANSI-Medicaid [id number] ANSI-Not a Secondary Insurance [id number] ANSI-Medicaid [id number] ANSI-Medicare Part B [id number] ANSI-Not a Secondary Insurance [id number] ANSI-Medicaid [id number] ANSI-Medicaid [id number] ANSI-Not a Secondary Insurance [id number] MEDICARE [id number] SP [id number] A [facility] MEDICARE DIVISION [id number] S [id number] MEDICARE - [place] [id number] S [id number] [facility] [place] [id number] SP [id number] SELF PAY ONLY - SP1 UNAVAILABLE SP UNAVAILABLE [facility] [place] [id number] SP [id number] [facility] [place] [id number] SP [id number] [facility] O [id number] S [id number] [facility] [place] [id number] SP [id number] STATE INSURANCE FUND O [id number] S [id number] STATE INSURANCE FUND [id number] SP [id number] [facility] [id number] S [id number] OTHER WORKERS COMPENSATION [id number] SP [id number] SELF PAY SP UNAVAILABLE S [facility]NAVAILA BLE [facility] [id number] S [id number] STATE INSURANCE FUND P CC [id number] S CC [id number] STATE INSURANCE FUND WC [id number] S [id number] BCBS EXCELLUS BC [id number] SPO [id number] [id number] AETNA MEDICARE [id number] SP [id number] [facility] MEDICAID [id number] SP [id number] Y AETNA MEDICARE [id number] SP [id number] [place] [id number] SP [id number] [employer] [id number] S [id number] MEDICAID [id number] SP [id number] Problems, Conditions, and Diagnoses Code Display Name Description Problem Type Effective Dates Data Source(s) R92.8 Other abnormal and inconclusive findings on diagnostic imaging of breast Other abnormal and inconclusive findings on diagnostic imaging of breast Diagnosis 07/20/2020 11:32:20 AM [facility] Z12.31 Encounter for screening mammogram for ma lignant neoplasm of breast ENCNTR SCREEN MAMMOGRAM FOR MALIGNANT NE Diagnosis 07/02/2020 09:00:00 AM [facility] R10.31 Right lower quadrant pain RIGHT LOWER QUADRANT PAIN Di agnosis 07/02/2020 09:00:00 AM [facility] N64.4 Mastodynia MASTODYNIA Diagnosis 07/02/2020 09:00:00 AM [facility] R93.[id number] scan, chest Problem 11/17/2020 12:00:00 AM EDT eCW1 ([facility]) R92.8 [id number] Abnormal mammogram of right breast Proble m 07/02/2020 12:00:00 AM EST eCW1 ([facility]) Surgeries/Procedures Procedure Description Date Indications Data Source(s) OFFICE OUTPATIENT VISIT 25 MINUTES 05/12/2021 12:00:00 AM EST [facility] ([facility]) OFFICE OUTPATIENT VISIT 15 MINUTES 02/23/2021 12:00:00 AM [facility] Spirometry 12/16/2020 12:00:00 AM [facility] OFFICE OUTPATIENT NEW 45 MINUTES 12/16/2020 12:00:00 A M EDT [facility] ([facility]) OFFICE OUTPATIENT VISIT 15 MINUTES 11/11/2020 12:00:00 AM EDT [facility] ([facility]) Results ID Date Data Source [id number] 05/22/2021 09:50:00 AM EST [facility] Name Value Range Interpretation Code Description Data Buffy rce(s) Supporting Document(s) SARS-CoV-2 (COVID-19) RNA [Presence] in Respiratory specimen by NEREIDA with probe detection Not Detected [facility] This lab was ordered by [facility] and reported by [facility]. ID Date Data Source [id number] 04/27/2021 01:30:00 PM EDT [facility] ([facility]) Name Value Range Interpretation Code Description Data Buffy rce(s) Supporting Document(s) Carcinoembryonic Ag [Mass/volume] in Serum or Plasma 2.2 ng/mL Normal (applies to non-numeric results) [facility] ([facility]) THE CEA ASSAY IS PERFORMED ON THE [facility] BY CHEMILUMINESCENCE AND SHOULD NOT BE COMPARED INTERCHANGEABLY WITH OTHER METHODS. IT SHOULD NOT BE USED ALONE A SCREENING TEST OR DIAGNOSIS FOR THE PRESENCE OR ABSENCE OF MALIGNANT DISEASE. PREDICTIONS OF DISEASE RECURRENCE SHOULD NOT BE BASED SOLELY ON VALUES OBTAINED FROM SERIAL PATIENT SERUM VALUES. ID Date Data Source [id number] 04/27/2021 01:30:00 PM EDT [facility] ([facility]) Name Value Range Interpretation Code Description Data Buffy rce(s) Supporting Document(s) Glomerular Filtration Rate Laboratory test result Normal (applies to non- numeric results) [facility] ([facility]) <content>Units are mL/min/1.73 m2</content>
<content></content>
<content>Chronic Kidney Disease Staging per F:</content>
<content></content>
<content>Stage I & II GFR >=60 Normal to Mildly Decreased</content>
<content>Stage III GFR 30- 59 Moderately Decreased</content>
<content>Stage IV GFR 15-29 Severely Decreased</content>
<content>Stage V GFR <15 Very Little GFR Left</content>
<content>ESRD GFR <15 on TAMALE MACHINE FEEDER</content>
<content></content> Creatinine For GFR 0.90 mg/dL 0.55-1.30 Normal (applies to non -numeric results) [facility] ([facility]) ID Date Data Source [id number] 04/27/2021 01:30:00 PM EDT [facility] ([facility]) Name Value Range Interpretation Code Description Data Buffy rce(s) Supporting Document(s) Urea nitrogen [Mass/volume] in Serum or Plasma 5 mg/dL 7-18 Below low normal [facility] ([facility]) ID Date Data Source [id number] 04/19/2021 01:14:00 PM [facility]) Name Value Range Interpretation Code Description Data Buffy rce(s) Supporting Document(s) Surgical pathology study Laboratory test result [facility] ([facility]) FINAL DIAGNOSIS Sigmoid colon, polypoid mass, biopsy: Fragments of tubulovillous adenoma. 04/20/2021 115 CLINICAL DIAGNOSIS Screening, polypoid mass in sigmoid colon, diverticulosis, hemorrhoids and possible diverticulitis 04/19/20211512 GROSS DIAGNOSIS Received in formalin labeled "biopsy polypoid mass in sigmoid colon" is a 0.4 x 0.2 x 0.2 cm. aggregate of two tissue fragments. All in one. [facility] 04/19/20211512 Signed Amelia Jefferson MD 04/20/2021 1448 ID Date Data Source [id number] 04/14/2021 10:00:00 AM EDT [facility] Name Value Range Interpretation Code Description Data Buffy rce(s) Supporting Document(s) SARS-CoV-2 (COVID-19) RNA [Presence] in Respiratory specimen by NEREIDA with probe detection Not Detected [facility] This lab was ordered by [facility] and reported by [facility]. ID Date Data Source [id number] 12/16/2020 10:07:00 AM EDT [facility] ([facility] ) Name Value Range Interpretation Code Description Data Buffy rce(s) Supporting Document(s) PDFReport Laboratory test result [facility] ([facility], ) FVC-Pred 3.34 L [facility] ([facility]) FVC-Pre 2.92 L [facility] ([facility]) FVC-%Pred-Pre 87 L [facility] ([facility], ) FVC-LLN 2.63 L [facility] ([facility]) Fev1-Pre 2.14 L [facility] ([facility]) Fev1-%Pred-Pre 83 L [facility] ([facility]) Fev1-Pred 2.57 L [facility] ([facility]) Fev6-Pred 3.22 L [facility] ([facility]) Fev1-LLN 1.96 L [facility] ([facility]) Fev6-LLN 2.52 L [facility] ([facility]) Fev6-Pre 2.80 L [facility] ([facility]) Fev6-%Pred-Pre 86 L [facility] ([facility]) Bbb2syj-Xcbb 77 % [facility] ([facility]) Tue9erw-Fyi 73 % [facility] ([facility]) Sgg3oqx-%Pred-Pre 94 % [facility] ([facility]) Nqn0tnm-Kcvf 96 % [facility] ([facility]) Act8qzn-IXE 68 % [facility] ([facility], ) Suc5jxz-Dle 96 % [facility] ([facility]) FEFMax-Pred 6.28 L/E/sec [facility] ([facility], ) FEFMax-Pre 5.40 L/E/sec [facility] ([facility]) Ciz8irq-%Pred-Pre 99 % [facility] ([facility]) FEFMax-%Pred-Pre 86 L/E/sec [facility] ([facility]) Deh6605-Cgey 2.28 L/E/sec [facility] ([facility]) FEFMax-LLN 4.51 L/E/sec [facility] ([facility]) Itc6816-Hwh 1.48 L/E/sec [facility] ([facility]) Ruu3702-%Pred-Pre 64 L/E/sec [facility] ([facility]) ExpTime-Pre 8.54 sec [facility] ([facility]) Smz4knt1-Cccp 80 % [facility] ([facility]) Pyy3045-KIH 1.00 L/E/sec [facility] ([facility]) Uar6ypa4-Pgc 77 % [facility] ([facility]) Sra0mbc5-%Pred-Pre 95 % [facility] ([facility]) Lai1fcs7-USD 71 % [facility] ([facility]) ID Date Data Source [id number] 07/22/2020 01:27:44 PM [facility] MAMMO DIGITAL DIAGNOSTIC RIGHT [id number] L RESULTInterpreted by:SASHA Trivedi DIGITAL MAMMOGRAM WITH [...] rce(s) Supporting Document(s) ID Date Data Source [id number] 07/22/2020 01:27:44 PM [facility] US BREAST INCLUDING AXILLA LIMITED RIGHT [id number] RESULTInterpreted by:SASHA Trivedi DIGITAL MAMMOGRAM WITH COMPUTER-AIDED [...] rce(s) Supporting Document(s) ID Date Data Source [id number] 07/20/2020 12:23:20 PM [facility] Name Value Range Interpretation Code Description Data Buffy rce(s) Supporting Document(s) Progress Note [facility] BGGLSo9lPlNVOnEz44/YFZyrETBif0EwBGdmPFs2FHynAQSgJ5XdZWH7fI9tPDR5VJeWWjZpZjOsBSA4 lbm [file] YcBlQ7XqL9UYJwBcRhG1I3CSWtBLA+YX2qQGt+Im9Ba7MkleF5cmDdXLcpBbZjXs8ETYSXW4SOTo== ID Date Data Source [id number] 07/02/2020 11:02:00 AM EST [facility] DATE OF EXAMINATION: 07/02/2020 9:27 EST [...] analyzed through the latest version of the [employer] computer aideddiagnosis system. The patient states that [...] rce(s) Supporting Document(s) ID Date Data Source [id number] 07/02/2020 10:24:00 AM EST [facility] [...] Name Value Range Interpretation Code Description Data [facility](s) Supporting Document(s) ID Date Data Source [id number] 07/02/2020 10:24:00 AM EST [facility] [...] Name Value Range Interpretation Code Description [facility](s) ID Date Data Source [id number] 07/02/2020 10:04:00 AM EST [facility] [...] FOR SERVICE 06/11/2020 12:00:00 AM EST eCW1 ([facility]) Name Value Range Interpretation Code Description Data Buffy rce(s) Supporting Document(s) eCW1 ([facility]) ID Date Data Source VITAMIN D 25-HYDROXY 06/11/2020 12:00:00 AM EST eCW1 ([facility]) Name Value Range Interpretation Code Description Data Buffy rce(s) Supporting Document(s) 35.1 30.0-100.0 TOTAL 25(OH) VITAMIN D eC W1 ([facility]) ID Date Data Source LIPID PANEL (CARDIAC RISK) 06/11/2020 12:00:00 AM EST eCW1 ( [facility]) Name Value Range Interpretation Code Description Data Buffy rce(s) Supporting Document(s) Cholesterol in LDL [Mass/volume] in Serum or Plasma by calculation 96 <100 LDL CHOLESTEROL eCW1 ([facility]) Cholesterol in HDL [Moles/volume] in Serum or Plasma 37 >40 HDL CHOLESTEROL eCW1 ([facility]) Cholesterol [Moles/volume] in Serum or Plasma 179 <200 CHOLESTEROL LEVEL eCW1 ([facility]) Triglyceride [Mass/volume] in Serum or Plasma by calculation 231 <150 TRIGLYCERIDES LEVEL eCW1 ([facility]) 4.837 <5 CHOLESTEROL RISK RATIO eCW1 ([facility]) 142 NON-HDL-C eCW1 ([facility]) ID Date Data Source FREE T4 & TSH PANEL 06/11/2020 12:00:00 AM EST eCW1 ([facility]) Name Value Range Interpretation Code Description Data Buffy rce(s) Supporting Document(s) 1.470 0.358-3.740 THYROID STIMULATING HORM ONE eCW1 ([facility]) 1.30 0.76-1.46 FREE T4 eCW1 ([facility]) ID Date Data Source Comprehensive Metabolic Profile (CMP) 06/11/2020 12:00:00 AM EST eCW1 ([facility]) Name Value Range Interpretation Code Description Data Buffy rce(s) Supporting Document(s) 5 7-18 BLOOD UREA NITROGEN eCW1 ([facility]) > 60.0 >45 GLOMERULAR FILTRATION RATE eCW 1 ([facility]) 91 70-100 GLUCOSE, FASTING eCW1 ([facility]) 0.93 0.55-1.30 CREATININE FOR GFR eCW1 ([facility]) 4.7 3.5-5.1 POTASSIUM SERUM eCW1 ([facility]) 104 98-107 CHLORIDE LEVEL eCW1 ([facility]) 139 136-145 SODIUM LEVEL eCW1 ([facility]) 34 21-32 CARBON DIOXIDE LEVEL eCW1 ([facility]) 10 7-37 AST/SGOT eCW1 ([facility]) 9.5 8.8-10.2 CALCIUM LEVEL eCW1 ([facility]) 77 45-117 ALKALINE PHOSPHATASE eCW1 ([facility]) 15 12-78 ALT/SGPT eCW1 ([facility]) 1.1 1.2-2.2 ALBUMIN/GLOBULIN RATIO eCW1 ([facility]) 3.8 3.2-5.2 ALBUMIN eCW1 ([facility]) 7.2 6.4-8.2 TOTAL PROTEIN eCW1 ([facility]) 0.3 0.2-1.0 BILIRUBIN,TOTAL eCW1 ([facility]) ID Date Data Source CBC with Differential 06/11/2020 12:00:00 AM EST eCW1 ([facility]) Name Value Range Interpretation Code Description Data Buffy rce(s) Supporting Document(s) 4.42 4.00-5.40 RED BLOOD COUNT eCW1 ([facility]) 4.8 4.0-10.0 WHITE BLOOD COUNT eCW1 ([facility]) 31.9 32.0-36.5 MEAN CORPUSCULAR HGB CONC eCW1 ([facility]) 13.3 12.0-15.5 HEMOGLOBIN eCW1 ([facility]) 94.3 80.0-96.0 MEAN CORPUSCULAR VOLUME e CW1 ([facility]) 30.1 27.0-33.0 MEAN CORPUSCULAR HEMOGLOB IN eCW1 ([facility]) 41.7 36.0-47.0 HEMATOCRIT eCW1 ([facility]) 56.3 36.0-66.0 NEUTROPHILS % eCW1 ([facility]) 262 150-450 PLATELET COUNT, AUTOMATED eCW1 ([facility]) 33.2 24.0-44.0 LYMPH % eCW1 ([facility]) 12.6 11.5-14.5 RED CELL DISTRIBUTION WID TH eCW1 ([facility]) 2.7 1.5-8.5 NEUTROPHILS # eCW1 ([facility]) 1.9 0.0-3.0 EOS % eCW1 ([facility]) 0.8 0.0-1.0 BASO % eCW1 ([facility]) 7.6 0.0-5.0 MONO % eCW1 ([facility]) 0.4 0.0-0.8 MONO # eCW1 ([facility]) 0.0 0.0-0.2 BASO # eCW1 ([facility]) 1.6 1.5-5.0 LYMPH # eCW1 ([facility]) 0.1 0.0-0.5 EOS # eCW1 ([facility]) ID Date Data Source WOUND CULTURE 06/04/2020 12:00:00 AM EST eCW1 ([facility]) Name Value Range Interpretation Code Description Data Buffy rce(s) Supporting Document(s) FULL REPORT IN LAB NOTES (eCW and [facility]). WOUND CULTURE eCW1 ([facility]) Procedure Social History Code Duration Value Status Description Data Source(s ) Smoking 02/23/2021 12:00:00 AM EDT Patient is a former smoker completed Patient is a former smoker MEDENT ([facility], ) Smoking 10/05/2020 12:00:00 AM EDT Current Smoker completed Curre nt Smoker eCW1 ([facility]) Smoking 10/05/2020 12:00:00 AM EDT Current Smoker completed Curre nt Smoker eCW1 ([facility]) Smoking 10/05/2020 12:00:00 AM EDT Current Smoker completed Curre nt Smoker eCW1 ([facility]) Smoking 10/05/2020 12:00:00 AM EDT Current Smoker completed Curre nt Smoker eCW1 ([facility]) Smoking 06/11/2020 12:00:00 AM EST Current Smoker completed Curre nt Smoker eCW1 ([facility]) Smoking 06/11/2020 12:00:00 AM EST Current Smoker completed Curre nt Smoker eCW1 ([facility]) Smoking 06/11/2020 12:00:00 AM EST Current Smoker completed Curre nt Smoker eCW1 ([facility]) Smoking 06/11/2020 12:00:00 AM EST Current Smoker completed Curre nt Smoker eCW1 ([facility]) Smoking 06/11/2020 12:00:00 AM EST Current Smoker completed Curre nt Smoker eCW1 ([facility]) Smoking 06/11/2020 12:00:00 AM EST Current Smoker completed Curre nt Smoker eCW1 ([facility]) Smoking 06/11/2020 12:00:00 AM EST Current Smoker completed Curre nt Smoker eCW1 ([facility]) Smoking 06/11/2020 12:00:00 AM EST Current Smoker completed Curre nt Smoker eCW1 ([facility]) Smoking 06/11/2020 12:00:00 AM EST Current Smoker completed Curre nt Smoker eCW1 ([facility]) Smoking 06/11/2020 12:00:00 AM EST Current Smoker completed Curre nt Smoker eCW1 ([facility]) Smoking 06/04/2020 12:00:00 AM EST Current Smoker completed Curre nt Smoker eCW1 ([facility]) Vital Signs ID Date Data Source UNK Name Value Range Interpretation Code Description Data Source(s) Systolic blood pressure 135 mm[Hg] 135 mm[Hg] Ericka [facility] ([facility]) Diastolic blood pressure 82 mm[Hg] 82 mm[Hg] [facility] ([facility]) Body temperature 98.1 [degF] 98.1 [degF] [facility] ([facility]) Body height 65 [in_i] 65 [in_i] [facility] ([facility]) 5'5" Body weight 135.12 [lb_av] 135.12 [lb_av] [facility]) Body mass index (BMI) [Ratio] 22.5 kg/m2 22.5 k g/m2 [facility] ([facility]) [place] body weight 125 [lb_av] 125 [lb_av] [facility] Body weight 61.293 kg 61.293 kg [facility] ([facility]) Body surface area Derived from formula 1.67 m2 1.67 m2 [facility] ([facility]) Body mass index (BMI) [Ratio] 22.5 kg/m2 22.5 k g/m2 [facility] ([facility]) Systolic blood pressure 130 mm[Hg] 130 mm[Hg] Ericka [facility] ([facility]) Body temperature 96.0 [degF] 96.0 [degF] [facility] ([facility]) Body height 65 [in_i] 65 [in_i] [facility] ([facility]) 5'5" [place] body weight 125 [lb_av] 125 [lb_av] [facility] ([facility]) Diastolic blood pressure 76 mm[Hg] 76 mm[Hg] [facility] ([facility]) Body weight 135.00 [lb_av] 135.00 [lb_av] [facility] ([facility]) Body weight 61.236 kg 61.236 kg [facility] ([facility]) Body surface area Derived from formula 1.67 m2 1.67 m2 [facility] ([facility]) Systolic blood pressure 128 mm[Hg] 128 mm[Hg] M [facility] ([facility]) Diastolic blood pressure 82 mm[Hg] 82 mm[Hg] [facility] ([facility]) Heart rate 73 /min 73 /min [facility] ([facility]) Oxygen saturation in Arterial blood by Pulse oximetry 97 % 97 % [facility] ([facility]) Body height 65 [in_i] 65 [in_i] [facility] ([facility]) 5'5" Body weight 135.00 [lb_av] 135.00 [lb_av] [facility] ([facility]) Body mass index (BMI) [Ratio] 22.5 kg/m2 22.5 k g/m2 [facility] ([facility]) [place] body weight 125 [lb_av] 125 [lb_av] [facility] ([facility]) Body weight 61.236 kg 61.236 kg [facility] ([facility]) Body surface area Derived from formula 1.67 m2 1.67 m2 [facility] ([facility]) Systolic blood pressure 120 mm[Hg] 120 mm[Hg] [facility] ([facility]) [place] body weight 125 [lb_av] 125 [lb_av] [facility] ([facility]) Oxygen saturation in Arterial blood by Pulse oximetry 97 % 97 % [facility] ([facility]) Body height 65 [in_i] 65 [in_i] [facility] ([facility]) 5'5" Body weight 131.00 [lb_av] 131.00 [lb_av] [facility] ([facility]) Body mass index (BMI) [Ratio] 21.8 kg/m2 21.8 k g/m2 [facility] ([facility]) [place] body weight 125 [lb_av] 125 [lb_av] [facility] ([facility]) Body weight 59.422 kg 59.422 kg [facility] ([facility]) Body surface area Derived from formula 1.65 m2 1.65 m2 [facility] ([facility]) Body mass index (BMI) [Ratio] 21.8 kg/m2 21.8 k g/m2 [facility] ([facility]) Diastolic blood pressure 82 mm[Hg] 82 mm[Hg] [facility] ([facility]) Heart rate 72 /min 72 /min [facility] ([facility]) Oxygen saturation in Arterial blood by Pulse oximetry 97 % 97 % [facility] ([facility]) Body height 65 [in_i] 65 [in_i] [facility] ([facility]) 5'5" Body weight 131.00 [lb_av] 131.00 [lb_av] [facility] ([facility]) Body weight 59.422 kg 59.422 kg [facility] ([facility]) Body surface area Derived from formula 1.65 m2 1.65 m2 [facility] ([facility]) Systolic blood pressure 114 mm[Hg] 114 mm[Hg] [facility] ([facility]) Diastolic blood pressure 60 mm[Hg] 60 mm[Hg] [facility] ([facility]) Body height 65 [in_i] 65 [in_i] [facility] ([facility]) 5'5" Body weight 130.00 [lb_av] 130.00 [lb_av] [facility] ([facility]) Body mass index (BMI) [Ratio] 21.6 kg/m2 21.6 k g/m2 [facility] ([facility]) [place] body weight 125 [lb_av] 125 [lb_av] [facility] ([facility]) Body weight 58.968 kg 58.968 kg [facility] ([facility]) Body surface area Derived from formula 1.65 m2 1.65 m2 [facility] ([facility]) Body height 65 [in_i] 65 [in_i] [facility] 5'5" [place] body weight 125 [lb_av] 125 [lb_av] [facility] ([facility]) Body weight [lb_av] eCW1 ([facility]) Body height 65 [in_i] 65 [in_i] eCW1 ([facility]) Body mass index (BMI) [Ratio] 21.63 kg/m2 21.63 kg/m2 eCW1 ([facility]) Heart rate 87 /min 87 /min eCW1 ([facility]) Respiratory rate 18 /min 18 /min eCW1 ([facility]) Body temperature 98.8 [degF] 98.8 [degF] eCW1 ( [facility]) Systolic blood pressure 123 mm[Hg] 123 mm[Hg] e CW1 ([facility]) Diastolic blood pressure 87 mm[Hg] 87 mm[Hg] eCW1 ([facility]) Body weight [lb_av] eCW1 ([facility]) Body height 65 [in_i] 65 [in_i] eCW1 ([facility]) Body mass index (BMI) [Ratio] 21.63 kg/m2 21.63 kg/m2 W1 ([facility]) Heart rate 74 /min 74 /min eCW1 ([facility]) Respiratory rate 18 /min 18 /min eCW1 ([facility]) Body temperature 97.8 [degF] 97.8 [degF] eCW1 ( [facility]) Systolic blood pressure 129 mm[Hg] 129 mm[Hg] e CW1 ([facility]) Diastolic blood pressure 81 mm[Hg] 81 mm[Hg] eCW1 ([facility]) Body weight 130.8 [lb_av] 130.8 [lb_av] eCW1 ([facility]) Body height 65 [in_i] 65 [in_i] eCW1 ([facility]) Body mass index (BMI) [Ratio] 21.76 kg/m2 21.76 kg/m2 eCW1 ([facility]) Heart rate 69 /min 69 /min eCW1 ([facility]) Respiratory rate 20 /min 20 /min eCW1 ([facility]) Body temperature 97.4 [degF] 97.4 [degF] eCW1 ( [facility]) Systolic blood pressure 118 mm[Hg] 118 mm[Hg] e CW1 ([facility]) Diastolic blood pressure 76 mm[Hg] 76 mm[Hg] eCW1 ([facility]) ID Date Data Source [id number] 07/22/2020 01:27:44 PM [facility] Name Value Range Interpretation Code Description Data Source(s) WEIGHT RECORDED 130 lb 130 lb [facility] Body height Measured 65 in 65 in [facility] ID Date Data Source [id number] 07/20/2020 12:23:20 PM [facility] Name Value Range Interpretation Code Description Data Source(s) WEIGHT RECORDED 130 lb 130 lb [facility] Body height Measured 65 in 65 in [facility] Patient Treatment Plan of Care Planned Activity Planned Date Details Description Data Source (s) Vitamin D3 125 MCG (5000 UT) 10/05/2020 12:00:00 AM EDT eC ([facility]) Vitamin D3 125 MCG (5000 UT) 10/05/2020 12:00:00 AM EDT eCW1 ([facility]) Vitamin D3 125 MCG (5000 UT) 10/05/2020 12:00:00 AM EDT eCW ([facility]) Vitamin D3 125 MCG (5000 UT) 10/05/2020 12:00:00 AM EDT eCW1 ([facility]) Cephalexin 500 MG Oral Tablet 06/08/2020 12:00:00 AM EST eCW1 ([facility])
[2021-05-25] MEDS ORDERED: ROCURONIUM BROMIDE 50 MG/5 ML VIAL As Ordered ONE ×2 (07:33→10:08)
[2021-05-25] MEDS ORDERED: propofoL 200 MG/20 ML VIAL As Ordered ONE (07:33)
[2021-05-25] MEDS ORDERED: LIDOCAINE 2% 100MG/5ML SDV (FOR ANES.) As Ordered ONE (07:33)
[2021-05-25] MEDS ORDERED: fentaNYL 250 MCG/5 ML INJECTION (J3010) As Ordered ONE (07:34)
[2021-05-25] MEDS ORDERED: MIDAZOLAM INJ 2MG/2ML VIAL (J2250 PER 1MG) As Ordered ONE (07:34)
[2021-05-25] MEDS ORDERED: METR-265 (07:38)
[2021-05-25] MEDS ORDERED: NEOM500T (07:38)
[2021-05-25] MEDS ORDERED: VITA500030 PO (07:38)
[2021-05-25] MEDS ORDERED: BUPIVACAINE HCL 0.25% 30ML VIAL As Ordered ONE (08:17)
[2021-05-25] MEDS ORDERED: metroNIDAZOLE/NACL 500MG(5MG/ML) 100ML BAG (S0030) As Ordered ONE (08:37)
--- NOTE | 2021-05-25 08:40 | ECGEPIP ---
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
[2021-05-25] MEDS ORDERED: LACRILUBE (AKWA TEARS) OPHTH OINT 3.5 GM As Ordered ONE (08:46)
[2021-05-25] MEDS ORDERED: metroNIDAZOLE 500 MG in IV 1 EA IV ONE (09:00)
[2021-05-25] MEDS ORDERED: LABETALOL 100MG/20ML VIAL As Ordered ONE (09:38)
[2021-05-25] MEDS ORDERED: HYDROmorphone HCL 2 MG/ML 1ML VIAL As Ordered ONE (10:13)
[2021-05-25] MEDS ORDERED: ONDANSETRON 4MG/2ML VIAL As Ordered ONE (10:19)
[2021-05-25] MEDS ORDERED: ACETAMINOPHEN 1000MG 100ML IV BTL (OFIRMEV) (J0131 PER 10MG) As Ordered ONE (10:19)
[2021-05-25] MEDS ORDERED: dexameTHASONE 4 MG/ML 1ML VIAL (J1100 PER 1MG) As Ordered ONE (10:19)
[2021-05-25] MEDS ORDERED: KETOROLAC 60MG 2ML VIAL As Ordered ONE (10:19)
[2021-05-25] MEDS ORDERED: SUGAMMADEX SODIUM 500 MG/5 ML VIAL (BRIDION) As Ordered ONE (10:19)
[2021-05-25] MEDS ORDERED: DESFLURANE 240 ML INHALANT As Ordered ONE (10:35)
[2021-05-25] MEDS ORDERED: SEVOFLURANE INHAL SOLN 250 ML BTL As Ordered ONE (12:59)
[2021-05-25] MEDS ORDERED: ePHEDrine SULFATE 25 MG/5 ML(5MG/ML) SYRINGE As Ordered ONE (13:00)
[2021-05-25] MEDS ORDERED: ONDANSETRON 4MG/2ML VIAL IV PRN ×2 (13:40→17:50)
[2021-05-25] MEDS ORDERED: ACETAMINOPHEN TAB 650MG DOSE (2X325MG) PO PRN (13:40)
[2021-05-25] MEDS ORDERED: PERCOCET 5MG/325MG TAB PO PRN (13:40)
[2021-05-25] MEDS ORDERED: METOCLOPRAMIDE INJ 10MG/2ML VIAL (J2765 PER 1) IV PRN (13:40)
[2021-05-25] MEDS ORDERED: fentaNYL 100 MCG/2 ML INJECTION (J3010) IV PRN (13:40)
[2021-05-25] MEDS ORDERED: MORPHINE 2 MG/ML 1ML VIAL (J2270) IV PRN (13:40)
[2021-05-25] MEDS ORDERED: LR 1,000 ML IV SCH (13:40)
[2021-05-25] MEDS ORDERED: oxyCODONE 5MG TAB PO PRN (13:40)
[2021-05-25] MEDS ORDERED: FLUO1TAB3 PO (14:31)
[2021-05-25] MEDS ORDERED: LEVO75TA4 PO (14:31)
[2021-05-25] MEDS ORDERED: HOME MED LIST COMPLETE! XX SCH (14:35)
[2021-05-25] MEDS: ATORVASTATIN 10 MG TAB PO SCH (16:52)
[2021-05-25] MEDS: LR 1,000 ML IV SCH ×2 (16:53→21:42)
[2021-05-25] MEDS: FLUoxetine 20 MG CAP PO SCH (16:53)
[2021-05-25] MEDS: KETOROLAC 30 MG/ML 1ML VIAL IV PRN (20:05)
[2021-05-25] MEDS: ALVIMOPAN 12 MG CAPSULE (ENTEREG) PO SCH (20:14)
[2021-05-26 00:10] VITALS: BP 122/79
[2021-05-26 04:10] VITALS: BP 127/78
[2021-05-26] MEDS: LEVOTHYROXINE 88MCG TABLET (0.088 MG) PO SCH (06:07)
[2021-05-26 06:35] LABS: BASO % 0.2 % (0.0-1.0); HEMATOCRIT 33.8 % (36.0-47.0); LYMPH # 1.2 10^3/uL (1.5-5.0); LYMPH % 12.8 % (24.0-44.0); MEAN CORPUSCULAR HEMOGLOBIN 29.7 pg (27.0-33.0); MEAN CORPUSCULAR HGB CONC 32.5 g/dl (32.0-36.5); MEAN CORPUSCULAR VOLUME 91.4 fl (80.0-96.0); MONO # 0.7 10^3/uL (0.0-0.8); NEUTROPHILS # 7.2 10^3/uL (1.5-8.5); NEUTROPHILS % 78.7 % (36.0-66.0); PLATELET COUNT, AUTOMATED 235 10^3/uL (150-450); WHITE BLOOD COUNT 9.1 10^3/uL (4.0-10.0)
[2021-05-26 06:53] LABS: BLOOD UREA NITROGEN 7 MG/DL (7-18); CALCIUM LEVEL 8.8 MG/DL (8.8-10.2); CARBON DIOXIDE LEVEL 29 MEQ/L (21-32); CHLORIDE LEVEL 106 MEQ/L (98-107); CREATININE FOR GFR 0.72 MG/DL (0.55-1.30); GLOMERULAR FILTRATION RATE > 60.0 (>45); GLUCOSE, FASTING 104 MG/DL (70-100); POTASSIUM SERUM 4.2 MEQ/L (3.5-5.1); SODIUM LEVEL 141 MEQ/L (136-145)
[2021-05-26 08:10] VITALS: BP 131/79
--- NOTE | 2021-05-26 08:48 | IPNPDOC ---
Text Note Date of Service The patient was seen on 05/26/21. NOTE General surgery. Dr. Lyons The patient is a 65-year-old female with sigmoid stricture secondary to diverticular disease, tubovillous adenoma of the sigmoid colon not endosco pically resectable due to sigmoid stricture, status post robotic assisted laparoscopic sigmoid colectomy with coloproctostomy as per Dr. Lyons 05/25/2021. This morning, the patient is sitting up in bed. Reports pain is controlled. She has been out of bed to the bathroom. States she is urinating without any difficulty. Denies nausea, states she has been drinking water and Dr. Huffman. Has not had anything off her clear liquid tray this morning yet. Denies flatus. Afebrile. Heart rate 73, respiratory rate 14, blood pressure 127/78, 98% 3 L nasal cannula Awake and alert, sitting up in bed, appears in no acute distress. Sclera anicteric, MMM S1-S2 regular rate rhythm Lungs are clear to auscultation Abdomen. Soft, nontender, surgical sites with dressings intact, small amount of shadowing on one of the dressings otherwise clean and dry. No edema No new labs I/O 2500/200 Assessment/plan Sigmoid stricture secondary to diverticular disease, tubovillous adenoma of the sigmoid colon not endoscopically resectable due to sigmoid stricture, status post robotic assisted laparoscopic sigmoid colectomy with coloproctostomy as per Dr. Lyons 05/25/2021. The patient is reviewed as per Dr. Lyons. States she is drinking water and Dr. Huffman, has not had anything off clear liquid tray yet this morning. Has been out of bed to the bathroom. States urinating without difficulty. Has not had bowel movement or flatus yet. Reports pain is controlled. Entereg p.o. LR 100 mL/h Incentive spirometry. DVT prophylaxis. Lovenox VS,Fishbone, I+O VS, Fishbone, I+O Laboratory Tests 05/26/21 06:11 Vital Signs Date Time Temp Pulse Resp B/P (MAP) Pulse Ox O2 Delivery O2 Flow Rate FiO2 05/26/21 04:10 98.9 73 14 127/78 (94) 98 Nasal Cannula 3.0 05/25/21 16:10 80 I&O- Last 24 Hours up to 6 AM 05/26/21 05:59 Intake Total 2500 ml Output Total 300 ml Balance 2200 ml Tomasa Vallejo May 26, 2021 08:48
[2021-05-26] MEDS: FLUoxetine 20 MG CAP PO SCH (09:01)
[2021-05-26] MEDS: ATORVASTATIN 10 MG TAB PO SCH (09:01)
[2021-05-26] MEDS: ALVIMOPAN 12 MG CAPSULE (ENTEREG) PO SCH (09:01)
[2021-05-26] MEDS: LR 1,000 ML IV SCH (09:02)
[2021-05-26] MEDS: ENOXAPARIN 40MG/0.4ML SYRINGE (J1650 PER 10MG) SC SCH (09:02)
[2021-05-26 12:10] VITALS: BP 125/81
[2021-05-26 16:10] VITALS: BP 126/77
[2021-05-26 21:20] VITALS: BP 151/80
[2021-05-26] MEDS: KETOROLAC 30 MG/ML 1ML VIAL IV PRN (23:38)
[2021-05-27 02:00] VITALS: BP 145/81
[2021-05-27] MEDS: LEVOTHYROXINE 88MCG TABLET (0.088 MG) PO SCH (05:43)
[2021-05-27 06:00] VITALS: BP 129/70
[2021-05-27 08:00] VITALS: BP 134/88
[2021-05-27] MEDS: FLUoxetine 20 MG CAP PO SCH (08:39)
[2021-05-27] MEDS: ATORVASTATIN 10 MG TAB PO SCH (08:39)
[2021-05-27] MEDS: ENOXAPARIN 40MG/0.4ML SYRINGE (J1650 PER 10MG) SC SCH (08:40)
--- NOTE | 2021-05-27 08:47 | IPNPDOC ---
Text Note Date of Service The patient was seen on 05/27/21. NOTE General surgery. Dr. Lyons The patient is a 65-year-old female with sigmoid stricture secondary to diverticular disease, tubovillous adenoma of the sigmoid colon not endoscopically resectable due to sigmoid stricture, status post robotic assisted laparoscopic sigmoid colectomy with coloproctostomy as per Dr. Lynos 05/25/2021. The patient states last evening she had abdominal pain and shoulder pain. She took a dose of Toradol at 2338 hrs. and IV Zofran. This seemed to help with her pain. She states after this she passed a large amount of flatus and felt much better. 3 bowel movements recorded yesterday. This morning she has been up out of bed, she has been out of bed to the bathroom. She states she has not yet eaten off her tray however has been drin tawanda water, drinking Dr. Huffman and has had some dry Cheerios. Breakfast tray is at the bedside but she has not eaten anything off it. She states she does not eat much in the morning. Pain is currently controlled. Temperature 98.8 Heart rate 79, respiratory rate 18, blood pressure 134/88, 97% room air. The patient is resting in bed comfortably, appears in no acute distress Sclera anicteric,MMM Respirations are easy with no wheezing noted. S1-S2 regular rate rhythm Abdomen is soft, nontender, nondistended, surgical dressing are clean and dry. No lower extremity edema Pathology pending No new labs Assessment/plan Sigmoid stricture secondary to diverticular disease, tubovillous adenoma of the sigmoid colon not endoscopically resectable due to sigmoid stricture, status post robotic assisted laparoscopic sigmoid colectomy with coloproctostomy as per Dr. Lyons 05/25/2021. The patient is reviewed as per Dr. Lyons. The patient reports flatus and 3 bowel movements yesterday. She is drinking water and Dr. Huffman, she is having some dry cheerios at the bedside but states she has not really eaten anything off of her tray. Has been up out of bed in the room and to the bathroom States pain is controlled. DVT prophylaxis. Lovenox. VS,Fishbone, I+O VS, Fishbone, I+O Vital Signs Date Time Temp Pulse Resp B/P (MAP) Pulse Ox O2 Delivery O2 Flow Rate FiO2 05/27/21 08:00 98.8 79 18 134/88 (103) 97 Room Air 05/26/21 08:10 3.0 05/25/21 16:10 80 I&O- Last 24 Hours up to 6 AM 05/27/21 05:59 Intake Total 1270 ml Output Total 3300 ml Balance -2030 ml Tomasa Vallejo May 27, 2021 08:47
[2021-05-27 11:00] VITALS: BP 134/87
[2021-05-27 12:00] VITALS: BP 132/86
[2021-05-27 14:00] VITALS: BP 139/79
--- NOTE | 2021-05-28 09:57 | DS.PDOC ---
Discharge Summary General Date of Admission May 25, 2021 at 06:55 Date of Discharge 05/27/2021 Discharge Summary General surgery. Dr. Lyons PROCEDURES PERFORMED DURING STAY: Status post robotic assisted laparoscopic sigmoid colectomy with coloproctostomy as per Dr. Lyons 05/25/2021. ADMITTING DIAGNOSES: Sigmoid stricture secondary to diverticular disease, tubovillous adenoma of the sigmoid colon not endoscopically resectable due to sigmoid stricture Hypothyroidism Dyslipidemia Anxiety Depression Allergic rhinitis DISCHARGE DIAGNOSES: Sigmoid stricture secondary to diverticular disease, tubovillous adenoma of the sigmoid colon not endoscopically resectable due to sigmoid stricture, status post robotic assisted laparoscopic sigmoid colectomy with coloproctostomy as per Dr. Lyons 05/25/2021. Hypothyroidism Dyslipidemia Anxiety Depression Allergic rhinitis HISTORY OF PRESENT ILLNESS: The patient is a 65-year-old female with sigmoid stricture secondary to diverticular disease, tubovillous adenoma of the sigmoid colon not endoscopically resectable due to sigmoid stricture, status post robotic assisted laparoscopic sigmoid colectomy with coloproctostomy as per Dr. Lyons 05/25/2021. HOSPITAL COURSE: The patient recovered well postoperatively. By postoperative day #1 she had been out of bed to the bathroom, was urinating without any difficulty, was drinking liquids without any nausea or vomiting. Reported pain was controlled. Her IV fluids were discontinued and she was advanced to regular diet. By postoperative day #2 the patient states that the night prior she had had some discomfort, she took Toradol and IV Zofran and the pain resolved. The patient had been out of bed to the bathroom. Reported having a bowel movement. Reported flatus. States she was tolerating regular food without any abdominal pain, nausea or vomiting. She was very anxious for discharge and subsequently discharge was arranged at approximately 5:45 PM on 05/27/2021. DISCHARGE MEDICATIONS: Please see below. ALLERGIES: Please see below. Exam on day of discharge Temperature 98.8 Heart rate 79, respiratory rate 18, blood pressure 134/88, 97% room air. The patient is resting in bed comfortably, appears in no acute distress Sclera anicteric,MMM Respirations are easy with no wheezing noted. S1-S2 regular rate rhythm Abdomen is soft, nontender, nondistended, surgical dressing are clean and dry. No lower extremity edema LABORATORY DATA: Please see below. Pathology 05/27/2021 indicated tubovillous adenoma, diverticulosis with chronic inflammation, no evidence for malignancy. IMAGING: No new imaging DISCHARGE PLAN: DISPOSITION: 01 Home, Self-Care. DISCHARGE INSTRUCTIONS: Discharge home The patient was advised to take Tylenol or ibuprofen as needed. No heavy lifting, pushing, pulling greater than 20 pounds for 2-week Continue to keep surgical incisions clean and dry, dry dressing daily. No baths or swimming Okay to shower No new medications Follow-up with Dr. Lyons in the office in 2 weeks. ITEMS TO FOLLOWUP ON ON OUTPATIENT: DISCHARGE CONDITION: Stable. TIME SPENT ON DISCHARGE: Greater than 30 minutes. Vital Signs/I&Os Vital Signs Date Time Temp Pulse Resp B/P (MAP) Pulse Ox O2 Delivery O2 Flow Rate FiO2 05/27/21 14:00 98.8 77 18 139/79 (99) 97 Room Air 05/26/21 08:10 3.0 05/25/21 16:10 80 I&O- Last 24 Hours up to 6 AM 05/28/21 06:00 Intake Total 460 ml Output Total 450 ml Balance 10 ml Discharge Medications Scheduled Atorvastatin Calcium (Atorvastatin Calcium) 10 Mg Tablet, 10 MG PO DAILY, (Reported) Cholecalciferol (Vitamin D3) (Vitamin D3) 125 Mcg Tablet, 5,000 UNIT PO DAILY, (Reported) Fluoxetine HCl (Fluoxetine HCl) 20 Mg Tablet, 40 MG PO DAILY, (Reported) Levothyroxine Sodium (Levothyroxine Sodium) 75 Mcg Tablet, 75 MCG PO DAILY, (Reported) Allergies Coded Allergies: codeine (Verified Adverse Reaction, Mild, GI UPSET, 05/24/21) lidocaine (Verified Adverse Reaction, Mild, GI UPSET, 05/24/21) morphine (Verified Adverse Reaction, Mild, GI UPSET, 05/24/21) Tomasa Vallejo May 28, 2021 09:57
--- NOTE | 2021-05-28 18:41 | RO ---
OPERATIVE NOTE DATE OF OPERATION: 05/25/2021 PREOPERATIVE DIAGNOSES: 1. 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 2. Tubulovillous adenoma of sigmoid colon. POSTOPERATIVE DIAGNOSES: 1. 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 2. Tubulovillous adenoma of sigmoid colon. PROCEDURE PERFORMED: Robotic-assisted laparoscopic rectosigmoid resection with coloproctostomy. SURGEON: Judson Lyons MD MATERIAL PREPARATION WORKER: Hu Tenorio MD SECOND RAMP AGENT: ONEL Singh Dr.'s assistance was primarily related to creation of the coloproctostomy with Dr. Tenorio managing the stapler. He also performed a post-anastomosis flexible sigmoidoscopic exam. Nazanin Tineo was essentially managing the robotic surgical platform with placement of trocars, management of the instruments and closure of the incisions. ANESTHESIA: General INDICATIONS FOR THE PROCEDURE: The patient is a 65-year-old woman who underwent a screening colonoscopy and was found to have some narrowing in the sigmoid colon with evidence for extensive diverticulosis and some inflammatory changes. A polyp was identified proximal to the area of stricture and biopsies showed a tubulovillous adenoma. 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 He reported having to use a significantly smaller endoscope than normal which would not allow resection. The patient is therefore now for a sigmoid resection to address both the stricture and the polyp. OPERATIVE PROCEDURE: The patient was brought to the operating room and placed on the table in a supine position. She was placed under general endotracheal anesthesia. TEDs and sequentials were utilized. A Jerome catheter was inserted. The patient was moved into a low lithotomy position with the lower extremities in padded leg holders. Digital rectal examination showed only a small amount of watery prep left. The patient's abdomen was prepped and draped in a sterile fashion. 1/4% Marcaine was infiltrated at each of the trocar sites. A short transverse incision was made in the left upper quadrant and a Veress needle was inserted. After a positive hanging drop test, the abdomen was insufflated with carbon dioxide gas. An 8 mm port was placed through the site and initial inspection showed no evidence of any significant adhesions. The liver appeared normal. The bowel appeared somewhat full of fluid and some air. A second 8 mm port was placed along the midline in the supraumbilical position. Another 8 mm port was placed lower in the right lower quadrant and a 12 mm port was placed low in the right lower quadrant. The patient was tilted into a slight Trendelenburg position and rolled slightly to the right. The patient cart of the da Leonor XI robot was brought into position and docked to the endoscope arm. Targeting took place on the sigmoid colon and the additional robotic arms were then docked. A SynchroSeal device fenestrated bipolar, and a grasping retractor were then inserted. I moved to the control console to proceed with the operation. Initially the descending colon was identified where it met the sigmoid colon. Some lateral attachments of the sigmoid and distal descending colon were divided to mobilize this area. The mobilization was continued up along the descending colon to slightly below the level of the spleen. Care was taken to avoid injury of the bowel but it was possible to mobilize the bowel quite significantly. The patient was then placed into a somewhat steeper Trendelenburg position and dissection proceeded down the lateral aspect of the sigmoid, freeing this and mobilizing this. There was a portion of the sigmoid that was adherent into the pelvis with some more filmy adhesions and these were lysed. There was a segment of the distal sigmoid colon about 10 cm in length that was clearly indurated, perhaps mildly erythematous and firmer. The ovaries were present but somewhat atrophic as was the uterus. I selected a point for division of the proximal sigmoid colon where it met the descending based on an estimate that the remaining descending colon would reach down into the pelvis adequately for an anastomosis. The bowel was divided with a robotic stapler with a green load. Then dissection proceeded through the rectosigmoid mesentery using the SynchroSeal to divide this close to the bowel down into the pelvis. I dissected down to about the junction of the sigmoid and rectum and the rectum was then divided with a second staple load. The specimen was set aside initially. The incision at the supraumbilical site was extended and using an extra small Jordan retractor, the specimen was delivered and opened off the field. A roughly 8 mm polypoid lesion was identified slightly proximal to the narrowing in the sigmoid colon. The specimen was sent for permanent pathology. The end of the descending colon was brought through the incision and the staple line was removed. The end of the bowel was prepared for insertion of the anvil of staple. A 29 mm EEA stapler was selected. The anvil was placed into the end of the bowel and held in place with a purse-string suture of 2-0 Prolene. Inspection of the distal several inches of the colon had shown no evidence of any other polyps at this level. The bowel was reduced into the abdomen and the fascia of the abdominal wall was closed with a running suture of 2-0 PDS. The abdomen was then reinflated. Dr. Tenorio then dilated the rectum slightly with EEA sizers and he attempted to advance the staple to the end of the rectum without success. There appeared to be some either angulation or narrowing in the rectosigmoid region. Therefore, I redocked the robot and using the three available arms, I freed up an additional approximately 5 cm of the rectosigmoid stump and stapled the end at a lower level. This separate piece of tissue was set aside for later removal. Dr. Tenorio was then able to advance the stapler to the end of the rectal stump. The anvil of the stapler was attached and the stapler was then closed and fired. Inspection showed what appeared to be an excellent anastomosis. The pelvis was filled with saline and Dr. Tenorio proceeded to perform a flexible sigmoidoscopic exam with a colonoscope. There as no evidence of air leakage and the visualized anastomosis appeared good. The irrigation was then removed from the pelvis. The small additional portion of resected rectosigmoid was placed in a specimen retrieval pouch. The da Leonor robot was then undocked and withdrawn. The patient was returned to a more flat position. The specimen retrieval pouch was retrieved through the 12 mm port site low in the right lower quadrant though it did require extension of this incision somewhat. This additional portion of the rectum was sent for permanent pathology as well. The peritoneum in the right lower quadrant port site was closed with a Vicryl suture. The fascia was then closed with some Vicryl sutures as well. The skin incisions were then closed with buried sutures of 4-0 Vicryl and Steri-Strips. Light dressings were applied. The patient tolerated the procedure well. Her Jerome catheter was removed. She was awakened in the operating room, extubated and moved to the recovery room in stable condition.
== END 2021-05-27 18:30 | disposition home or self-care (01) | DRG 331 ==
LOC: M OR 06:55 → M MSPAV 15:09
PROVIDERS: ADMIT Surgery; ATTEND Surgery
PROC: 8E0W4CZ Robotic Assisted Procedure of Trunk Region, Percutaneous Endoscopic Approach (ICD-10-PCS; 2021-05-25)
PROC: 0DBN4ZZ Excision of Sigmoid Colon, Percutaneous Endoscopic Approach (ICD-10-PCS; principal; 2021-05-25 08:30)
DX: K56.609 Unspecified intestinal obstruction, unspecified as to partial versus complete obstruction (principal); D37.4 Neoplasm of uncertain behavior of colon; Z88.5 Allergy status to narcotic agent; Z88.8 Allergy status to other drugs, medicaments and biological substances; E03.9 Hypothyroidism, unspecified; E78.00 Pure hypercholesterolemia, unspecified

== ENCOUNTER → 2022-01-24 | Outpatient (REF) | payer MEDICARE, MEDICAID ==
[~2022-01-24] MED LIST changes: -ALVIMOPAN 12 MG CAPSULE (ENTEREG) PO ONE; +FLUO1TAB3 PO; +LEVO75TA4 PO; -LIDOCAINE 1% MDV 20ML VIAL SQ PRN; -LR 1,000 ML IV ONE; +METR-265; +NEOM500T; +VITA500030 PO; -cefoTEtan DISODIUM 2 GM in D5W MINI-BAG PLUS 50 ML IV ONE
[2022-01-24 17:24] LABS: BASO % 0.6 % (0.0-1.0); EOS # 0.2 10^3/uL (0.0-0.5); EOS % 2.4 % (0.0-3.0); HEMOGLOBIN 12.3 g/dl (12.0-15.5); LYMPH % 32.1 % (24.0-44.0); MEAN CORPUSCULAR HEMOGLOBIN 30.3 pg (27.0-33.0); MEAN CORPUSCULAR HGB CONC 32.4 g/dl (32.0-36.5); MEAN CORPUSCULAR VOLUME 93.6 fl (80.0-96.0); MONO # 0.5 10^3/uL (0.0-0.8); MONO % 7.2 % (2.0-8.0); NEUTROPHILS # 3.7 10^3/uL (1.5-8.5); NEUTROPHILS % 57.5 % (36.0-66.0); PLATELET COUNT, AUTOMATED 289 10^3/uL (150-450); RED BLOOD COUNT 4.06 10^6/uL (4.00-5.40); WHITE BLOOD COUNT 6.4 10^3/uL (4.0-10.0)
[2022-01-24 17:37] LABS: ALBUMIN 3.7 GM/DL (3.2-5.2); ALT/SGPT 16 U/L (12-78); BILIRUBIN,TOTAL 0.4 MG/DL (0.2-1.0); BLOOD UREA NITROGEN 10 MG/DL (7-18); CALCIUM LEVEL 9.4 MG/DL (8.8-10.2); CARBON DIOXIDE LEVEL 25 MEQ/L (21-32); CHLORIDE LEVEL 109 MEQ/L (98-107); CHOLESTEROL LEVEL 159 MG/DL (<200); CHOLESTEROL RISK RATIO 4.076 (<5); CREATININE FOR GFR 0.89 MG/DL (0.55-1.30); FREE T4 1.13 NG/DL (0.76-1.46); GLOMERULAR FILTRATION RATE > 60.0 (>45); GLUCOSE, FASTING 97 MG/DL (70-100); HDL CHOLESTEROL 39 MG/DL (>40); LDL CHOLESTEROL 88 MG/DL (<100); NON-HDL-C 120 MG/DL; POTASSIUM SERUM 4.4 MEQ/L (3.5-5.1); SODIUM LEVEL 140 MEQ/L (136-145); THYROID STIMULATING HORMONE 0.659 uIU/ML (0.358-3.740); TOTAL PROTEIN 6.9 GM/DL (6.4-8.2); TRIGLYCERIDES LEVEL 160 MG/DL (<150)
[2022-01-24 17:59] LABS: TOTAL 25(OH) VITAMIN D 80.4 NG/ML (30.0-100.0); VITAMIN B12 LEVEL 413 PG/ML
[2022-01-24 18:00] LABS: FOLATE 5.2 NG/ML
== END ==
LOC: M SFHCCAPE 09:35
PROVIDERS: ATTEND Physician Assistant
DX: R53.83 Other fatigue (principal); E03.9 Hypothyroidism, unspecified; E78.5 Hyperlipidemia, unspecified; E55.9 Vitamin D deficiency, unspecified; Z79.899 Other long term (current) drug therapy

== ENCOUNTER → 2022-03-21 | Outpatient (REF) | payer MEDICARE, MEDICAID ==
[2022-03-21 17:56] LABS: BASO % 0.6 % (0.0-1.0); EOS # 0.2 10^3/uL (0.0-0.5); EOS % 3.7 % (0.0-3.0); HEMATOCRIT 39.3 % (36.0-47.0); HEMOGLOBIN 12.5 g/dl (12.0-15.5); LYMPH # 1.8 10^3/uL (1.5-5.0); LYMPH % 28.5 % (24.0-44.0); MEAN CORPUSCULAR HEMOGLOBIN 29.6 pg (27.0-33.0); MEAN CORPUSCULAR HGB CONC 31.8 g/dl (32.0-36.5); MEAN CORPUSCULAR VOLUME 93.1 fl (80.0-96.0); MONO # 0.4 10^3/uL (0.0-0.8); MONO % 6.2 % (2.0-8.0); NEUTROPHILS # 3.9 10^3/uL (1.5-8.5); NEUTROPHILS % 60.8 % (36.0-66.0); PLATELET COUNT, AUTOMATED 295 10^3/uL (150-450); RED BLOOD COUNT 4.22 10^6/uL (4.00-5.40); WHITE BLOOD COUNT 6.5 10^3/uL (4.0-10.0)
[2022-03-21 19:37] LABS: ALBUMIN 3.7 GM/DL (3.2-5.2); ALT/SGPT 21 U/L (12-78); BILIRUBIN,TOTAL 0.5 MG/DL (0.2-1.0); BLOOD UREA NITROGEN 7 MG/DL (7-18); CALCIUM LEVEL 9.3 MG/DL (8.8-10.2); CARBON DIOXIDE LEVEL 27 MEQ/L (21-32); CHLORIDE LEVEL 105 MEQ/L (98-107); CREATININE FOR GFR 0.88 MG/DL (0.55-1.30); FREE T4 1.14 NG/DL (0.76-1.46); GLOMERULAR FILTRATION RATE > 60.0 (>45); GLUCOSE, FASTING 99 MG/DL (70-100); POTASSIUM SERUM 4.5 MEQ/L (3.5-5.1); SODIUM LEVEL 137 MEQ/L (136-145); TOTAL PROTEIN 7.3 GM/DL (6.4-8.2)
[2022-03-21 19:54] LABS: HEMOGLOBIN A1c 5.7 %
[2022-03-21 20:48] LABS: APPEARANCE, URINE MANUAL CLEAR (CLEAR); COLOR, URINE MANUAL LT YELLOW (YELLOW)
[2022-03-21 20:49] LABS: BILIRUBIN, URINE MANUAL NEGATIVE (NEGATIVE); BLOOD URINE MANUAL POSITIVE (NEGATIVE); GLUCOSE, URINE (UA) MANUAL NEGATIVE (NEGATIVE); KETONE, URINE MANUAL NEGATIVE (NEGATIVE); LEUKOCYTE ESTERASE, URINE MAN POSITIVE (NEGATIVE); NITRITE, URINE MANUAL NEGATIVE (NEGATIVE); PROTEIN, URINE MANUAL NEGATIVE (NEGATIVE); SPECIFIC GRAVITY,URINE MANUAL 1.005 (1.002-1.035); UROBILINOGEN, URINE MANUAL NORMAL (NORMAL)
[2022-03-21 21:15] LABS: BACTERIA, URINE NONE SEEN; HYALINE CAST, URINE NONE SEEN /lpf (0-1); SQUAMOUS EPITHELIAL CELL URINE SMALL AMOUNT /hpf (SMALL AMT)
== END ==
LOC: M SFHCCAPE 08:29
PROVIDERS: ATTEND Physician Assistant
DX: R63.5 Abnormal weight gain (principal); R53.83 Other fatigue; B37.2 Candidiasis of skin and nail

== ENCOUNTER → 2022-05-02 | Outpatient (REF) | payer MEDICARE, MEDICAID | LOC: M SFHCCAPE 09:53 | PROVIDERS: ATTEND Physician Assistant | DX: Z12.4 Encounter for screening for malignant neoplasm of cervix (principal); R87.615 Unsatisfactory cytologic smear of cervix | CPT/HCPCS: 87624; G0123 ==

== ENCOUNTER → 2022-10-05 | Outpatient (REF) | payer MEDICARE, MEDICAID | LOC: M SFHCWAGY 17:43 | PROVIDERS: ATTEND Obstetrics & Gynecology | DX: Z12.4 Encounter for screening for malignant neoplasm of cervix (principal); N95.8 Other specified menopausal and perimenopausal disorders | CPT/HCPCS: 87624; G0123 ==

== ENCOUNTER → 2022-11-30 | Outpatient (CLI) | payer MEDICARE | LOC: M RAD 09:56 | PROVIDERS: ATTEND Nurse Practitioner Adult Health | DX: R91.8 Other nonspecific abnormal finding of lung field (principal); I70.0 Atherosclerosis of aorta; S22.050D Wedge compression fracture of T5-T6 vertebra, subsequent encounter for fracture with routine healing; S22.060D Wedge compression fracture of T7-T8 vertebra, subsequent encounter for fracture with routine healing ==

== ENCOUNTER → 2023-02-15 | Outpatient (REF) | payer MEDICARE ==
[~2023-02-15] MED LIST changes: -GABA-283; +GABA-284
[2023-02-15 18:30] LABS: BASO % 0.7 % (0.0-1.0); EOS # 0.1 10^3/uL (0.0-0.5); HEMATOCRIT 39.2 % (36.0-47.0); HEMOGLOBIN 12.6 g/dl (12.0-15.5); LYMPH # 2.1 10^3/uL (1.5-5.0); LYMPH % 37.3 % (24.0-44.0); MEAN CORPUSCULAR HEMOGLOBIN 29.8 pg (27.0-33.0); MEAN CORPUSCULAR HGB CONC 32.1 g/dl (32.0-36.5); MEAN CORPUSCULAR VOLUME 92.7 fl (80.0-96.0); MONO # 0.4 10^3/uL (0.0-0.8); MONO % 6.9 % (2.0-8.0); NEUTROPHILS # 2.9 10^3/uL (1.5-8.5); NEUTROPHILS % 52.9 % (36.0-66.0); PLATELET COUNT, AUTOMATED 298 10^3/uL (150-450); RED BLOOD COUNT 4.23 10^6/uL (4.00-5.40); WHITE BLOOD COUNT 5.5 10^3/uL (4.0-10.0)
[2023-02-15 18:51] LABS: ALBUMIN 3.9 G/DL (3.2-5.2); ALKALINE PHOSPHATASE 80 U/L (46-116); ALT/SGPT 14 U/L (7.0-40); AST/SGOT 10 U/L (<34); BLOOD UREA NITROGEN 7 MG/DL (9-23); CALCIUM LEVEL 9.6 MG/DL (8.3-10.6); CARBON DIOXIDE LEVEL 28 MMOL/L (20-31); CHLORIDE LEVEL 104 MMOL/L (98-107); CHOLESTEROL LEVEL 189 MG/DL (<200); CHOLESTEROL RISK RATIO 4.73 (<5); CREATININE FOR GFR 0.92 MG/DL (0.55-1.30); GLOMERULAR FILTRATION RATE > 60.0 (>45); GLUCOSE, FASTING 99 MG/DL (74-106); HDL CHOLESTEROL 39.9 MG/DL (>40); LDL CHOLESTEROL 111.9 MG/DL (<100); NON-HDL-C 149.1 MG/DL; POTASSIUM SERUM 4.5 MMOL/L (3.5-5.1); SODIUM LEVEL 140 MMOL/L (136-145); TRIGLYCERIDES LEVEL 186 MG/DL (<150)
[2023-02-15 18:53] LABS: THYROID STIMULATING HORMONE 3.986 uIU/ML (0.55-4.78)
[2023-02-15 18:55] LABS: HEMOGLOBIN A1c 5.5 % (4.0-6.0)
== END ==
LOC: M SFHCCAPE 09:11
PROVIDERS: ATTEND Physician Assistant
DX: Z00.00 Encounter for general adult medical examination without abnormal findings (principal); E03.9 Hypothyroidism, unspecified; F41.8 Other specified anxiety disorders; Z79.899 Other long term (current) drug therapy

== ENCOUNTER → 2023-11-06 | Outpatient (REF) | payer MEDICARE ==
[2023-11-06 17:46] LABS: BASO % 0.6 % (0.0-1.0); EOS # 0.1 10^3/uL (0.0-0.5); EOS % 1.5 % (0.0-3.0); HEMOGLOBIN 12.2 g/dl (12.0-15.5); LYMPH # 1.9 10^3/uL (1.5-5.0); LYMPH % 29.4 % (24.0-44.0); MEAN CORPUSCULAR VOLUME 91.1 fl (80.0-96.0); MONO # 0.4 10^3/uL (0.0-0.8); MONO % 6.1 % (2.0-8.0); NEUTROPHILS # 4.1 10^3/uL (1.5-8.5); NEUTROPHILS % 62.1 % (36.0-66.0); PLATELET COUNT, AUTOMATED 342 10^3/uL (150-450); RED BLOOD COUNT 4.06 10^6/uL (4.00-5.40); WHITE BLOOD COUNT 6.5 10^3/uL (4.0-10.0)
[2023-11-06 18:05] LABS: ALBUMIN 3.4 G/DL (3.2-5.2); ALKALINE PHOSPHATASE 119 U/L (46-116); ALT/SGPT 13 U/L (7.0-40); AST/SGOT 12 U/L (<34); BILIRUBIN,TOTAL 0.5 MG/DL (0.3-1.2); BLOOD UREA NITROGEN 6 MG/DL (9-23); CALCIUM LEVEL 9.2 MG/DL (8.3-10.6); CARBON DIOXIDE LEVEL 26 MMOL/L (20-31); CHLORIDE LEVEL 104 MMOL/L (98-107); CHOLESTEROL LEVEL 174 MG/DL (<200); CREATININE FOR GFR 0.83 MG/DL (0.55-1.30); FREE T4 0.99 NG/DL (0.89-1.76); GLOMERULAR FILTRATION RATE > 60.0 (>45); GLUCOSE, FASTING 89 MG/DL (74-106); HDL CHOLESTEROL 34.1 MG/DL (>40); LDL CHOLESTEROL 99.5 MG/DL (<100); NON-HDL-C 139.9 MG/DL; POTASSIUM SERUM 4.3 MMOL/L (3.5-5.1); SODIUM LEVEL 138 MMOL/L (136-145); THYROID STIMULATING HORMONE 4.286 uIU/ML (0.55-4.78); TOTAL 25(OH) VITAMIN D 41.7 NG/ML (20.0-100.0); TOTAL PROTEIN 6.5 G/DL (5.7-8.2); TRIGLYCERIDES LEVEL 202 MG/DL (<150)
== END ==
LOC: M SFHCCAPE 09:39
PROVIDERS: ATTEND Physician Assistant Medical
DX: E03.9 Hypothyroidism, unspecified (principal); F41.8 Other specified anxiety disorders; K21.9 Gastro-esophageal reflux disease without esophagitis; E78.5 Hyperlipidemia, unspecified; E55.9 Vitamin D deficiency, unspecified

== ENCOUNTER → 2024-05-16 | Outpatient (REF) | payer MEDICARE ==
[2024-05-16 19:25] LABS: BASO % 0.7 % (0.0-1.0); EOS # 0.1 10^3/uL (0.0-0.5); EOS % 1.4 % (0.0-3.0); HEMATOCRIT 40.1 % (36.0-47.0); HEMOGLOBIN 12.8 g/dl (12.0-15.5); LYMPH # 1.7 10^3/uL (1.5-5.0); LYMPH % 29.5 % (24.0-44.0); MEAN CORPUSCULAR HEMOGLOBIN 29.5 pg (27.0-33.0); MEAN CORPUSCULAR HGB CONC 31.9 g/dl (32.0-36.5); MEAN CORPUSCULAR VOLUME 92.4 fl (80.0-96.0); MONO # 0.4 10^3/uL (0.0-0.8); MONO % 6.8 % (2.0-8.0); NEUTROPHILS # 3.6 10^3/uL (1.5-8.5); NEUTROPHILS % 61.3 % (36.0-66.0); PLATELET COUNT, AUTOMATED 290 10^3/uL (150-450); RED BLOOD COUNT 4.34 10^6/uL (4.00-5.40); WHITE BLOOD COUNT 5.8 10^3/uL (4.0-10.0)
[2024-05-16 19:37] LABS: HEMOGLOBIN A1c 5.2 % (4.0-6.0)
[2024-05-16 19:53] LABS: ALBUMIN 3.7 G/DL (3.2-5.2); ALKALINE PHOSPHATASE 81 U/L (35-104); ALT/SGPT 12 U/L (7.0-40); AST/SGOT < 8 U/L (<34); BILIRUBIN,TOTAL 0.6 MG/DL (0.3-1.2); BLOOD UREA NITROGEN 8 MG/DL (9-23); CALCIUM LEVEL 9.7 MG/DL (8.3-10.6); CARBON DIOXIDE LEVEL 30 MMOL/L (20-31); CHLORIDE LEVEL 103 MMOL/L (98-107); CHOLESTEROL LEVEL 180 MG/DL (<200); CREATININE FOR GFR 0.94 MG/DL (0.55-1.30); GLOMERULAR FILTRATION RATE > 60.0 (>45); GLUCOSE, FASTING 89 MG/DL (74-106); HDL CHOLESTEROL 33.3 MG/DL (>40); LDL CHOLESTEROL 111.9 MG/DL (<100); NON-HDL-C 146.7 MG/DL; POTASSIUM SERUM 4.4 MMOL/L (3.5-5.1); SODIUM LEVEL 141 MMOL/L (136-145); TOTAL PROTEIN 7.2 G/DL (5.7-8.2); TRIGLYCERIDES LEVEL 174 MG/DL (<150)
[2024-05-16 19:55] LABS: THYROID STIMULATING HORMONE 16.519 uIU/ML (0.55-4.78); TOTAL 25(OH) VITAMIN D 86.2 NG/ML (20.0-100.0)
== END ==
LOC: M SFHCCAPE 09:01
PROVIDERS: ATTEND Physician Assistant Medical
DX: M81.0 Age-related osteoporosis without current pathological fracture (principal); R73.01 Impaired fasting glucose; E03.9 Hypothyroidism, unspecified; K21.9 Gastro-esophageal reflux disease without esophagitis; E78.5 Hyperlipidemia, unspecified

== ENCOUNTER → 2024-05-21 | Outpatient (CLI) | payer MEDICARE | LOC: M RAD 09:57 | PROVIDERS: ATTEND Physician Assistant Medical | DX: R91.8 Other nonspecific abnormal finding of lung field (principal); S22.060A Wedge compression fracture of T7-T8 vertebra, initial encounter for closed fracture; S22.050A Wedge compression fracture of T5-T6 vertebra, initial encounter for closed fracture; F17.211 Nicotine dependence, cigarettes, in remission ==

== ENCOUNTER → 2024-07-09 | Outpatient (REF) | payer MEDICARE ==
[2024-07-09 18:05] LABS: FREE T4 1.14 NG/DL (0.89-1.76); THYROID STIMULATING HORMONE 14.206 uIU/ML (0.55-4.78)
== END ==
LOC: M SFHCCAPE 10:16
PROVIDERS: ATTEND Physician Assistant Medical
DX: E03.9 Hypothyroidism, unspecified (principal)

== ENCOUNTER → 2024-09-05 | Outpatient (REF) | payer MEDICARE ==
[2024-09-05 19:16] LABS: FREE T4 1.27 NG/DL (0.89-1.76); THYROID STIMULATING HORMONE 1.455 uIU/ML (0.55-4.78)
== END ==
LOC: M SFHCCAPE 09:15
PROVIDERS: ATTEND Physician Assistant Medical
DX: E03.9 Hypothyroidism, unspecified (principal)